=== PATIENT | male | born 1970 | race Caucasian/White ===

== ENCOUNTER 2017-11-02 10:15 | Inpatient (IN) | payer MEDICARE, SELFPAY ==
[2017-11-02 10:33] VITALS: BMI 28.8
[2017-11-02 10:53] VITALS: BP 147/94; PULSE 71; RESP 18; TEMP 36.8; O2SAT 96
[2017-11-02] MEDS: chlordiazePOXIDE 25 MG Capsule PO ×3 (11:49→22:28)
[2017-11-02 14:18] VITALS: BP 139/81; PULSE 81; RESP 16; TEMP 36.6
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
[2017-11-02 17:56] VITALS: BP 149/85; PULSE 79; RESP 16; TEMP 36.8
[2017-11-02 22:27] VITALS: BP 136/91; PULSE 68; RESP 16; TEMP 36.6
[2017-11-03 02:39] VITALS: BP 139/85; PULSE 71; RESP 16; TEMP 36.6
[2017-11-03] MEDS: chlordiazePOXIDE 25 MG Capsule PO ×3 (05:34→22:00)
[2017-11-03 05:36] VITALS: BP 135/83; PULSE 71; RESP 16; TEMP 37
[2017-11-03 09:30] VITALS: BP 138/79; PULSE 76; RESP 16; TEMP 36.4
[2017-11-03] MEDS: Sertraline 50 MG Tablet PO (09:37)
[2017-11-03] MEDS: Thiamine Hydrochloride 100 MG Tablet PO (09:37)
[2017-11-03] MEDS: Folic Acid 1 MG Tablet PO (09:37)
[2017-11-03] MEDS: Multivitamins,Therapeutic Tablet 1 TABLET PO (09:37)
[2017-11-03 13:40] VITALS: BP 137/78; PULSE 77; RESP 16; TEMP 36.6
--- NOTE | 2017-11-03 17:25 | PCM.PROGNOTE ---
Patient Problems: Active and Suspected Problems Alcohol withdrawal (Acute) Subjective: Patient seen and examined today, he is not having any wheezing, he states he feels better today less nervous. - Physical Exam General: Alert, Oriented x3, Cooperative, No apparent distress, Well developed, Well nourished HEENT: Atraumatic, PERRLA, EOMI, Normocephalic Oral: Moist Mucosa Neck: Supple, No JVD, Negative Carotid Bruits, No Nuchal Rigidity, Trachea Midline, Thyroid Normal Size and Texture Lungs: Clear to auscultation, Normal air movement, No rhonchi, No wheeze, No rales Cardiovascular: Regular rate, Regular Rhythm, Normal S1, Normal S2, No murmurs, No Ectopic Activity Abdomen: Bowel Sounds Present, Soft, Non Tender, No hernias noted Extremities: No clubbing, No cyanosis, No edema, Capillary Refill Less than 3 Seconds Skin: No rashes, No breakdown Musculoskeletal: No Tenderness to Palpation of Joints or Extremities Neurological: Cranial nerves II-XII grossly intact, Neuro grossly intact, Sensory exam intact to light touch and pain, Coordination normal Psych/Mental Status: Normal Affect, Appropriate, Alert and oriented to time, place, person, mood and affect Vital Signs Temp Pulse Resp BP Pulse Ox 97.9 F 77 16 137/78 H 96 11/03/17 13:40 11/03/17 13:40 11/03/17 13:40 11/03/17 13:40 11/02/17 10:53 Oxygen Delivery Method Room Air Weight: 91.2 kg Body Mass Index (BMI) 28.8 Intake and Output for Last 24 Hours 11/01/17 11/02/17 11/03/17 23:59 23:59 23:59 Intake Total 800 / 800 400 / 400 Balance 800 / 800 400 / 400 Medical Necessity - Tobacco Use Smoking Status: Current every day smoker Tobacco Use: Cigarettes Assessment/Plan All Active Problems Alcohol withdrawal (Acute) #1 acute alcohol withdrawal-continue present meds #2 alcoholism-chronic #3 hypertension-continue Diovan for blood pressure #4 depression-patient is on Zoloft 50 mg daily. #5 COPD-patient takes no medication for COPD but has been diagnosed with COPD according to him, I do not believe he needs aerosol treatments at this time Code Visit Inpatient E&M: [id number] Subs Hosp L2
[2017-11-03 20:20] VITALS: BP 126/90; PULSE 72; RESP 18; TEMP 36.7; O2SAT 94
[2017-11-04] MEDS: chlordiazePOXIDE 25 MG Capsule PO ×2 (05:34→13:51)
[2017-11-04 05:35] VITALS: BP 119/79; PULSE 55; RESP 16; TEMP 36.6; O2SAT 92
--- NOTE | 2017-11-04 08:45 | PCM.PROGNOTE ---
Patient Problems: Active and Suspected Problems Alcohol withdrawal (Acute) Subjective: Patient seen and examined today, he does not complain of any increased tremors or anxiety. His blood pressure is under adequate control at this time, patient was given Dulcolax p.o. due to constipation today - Physical Exam General: Alert, Oriented x3, Cooperative, No apparent distress, Well developed, Well nourished HEENT: Atraumatic, PERRLA, EOMI, Normocephalic Oral: Moist Mucosa Neck: Supple, No JVD, No Nuchal Rigidity, Trachea Midline, Thyroid Normal Size and Texture Lungs: Clear to auscultation, Normal air movement, No rhonchi, No wheeze Cardiovascular: Regular rate, Regular Rhythm, Normal S1, Normal S2, No murmurs, No Ectopic Activity, PMI Normal, No rub noted, No Gallop Abdomen: Bowel Sounds Present, Soft, Non Tender, Non-Distended, No hernias noted Extremities: No clubbing, No cyanosis, No edema, Capillary Refill Less than 3 Seconds Skin: No rashes, No breakdown Musculoskeletal: No Tenderness to Palpation of Joints or Extremities Neurological: Cranial nerves II-XII grossly intact, Muscle tone normal, Sensory exam intact to light touch and pain, Coordination normal Psych/Mental Status: Normal Affect, Appropriate, Alert and oriented to time, place, person, mood and affect Vital Signs Temp Pulse Resp BP Pulse Ox 97.8 F 55 L 16 119/79 92 11/04/17 05:35 11/04/17 05:35 11/04/17 05:35 11/04/17 05:35 11/04/17 05:35 Oxygen Delivery Method Room Air Weight: 91.2 kg Body Mass Index (BMI) 28.8 Intake and Output for Last 24 Hours 11/02/17 11/03/17 11/04/17 23:59 23:59 23:59 Intake Total 800 / 800 1290 / 1290 300 / 300 Balance 800 / 800 1290 / 1290 300 / 300 Medical Necessity - Tobacco Use Smoking Status: Current every day smoker Tobacco Use: Cigarettes Assessment/Plan All Active Problems Alcohol withdrawal (Acute) #1 acute alcohol withdrawal-continue present meds, patient is currently exhibiting no symptoms of alcohol withdrawal #2 alcoholism-chronic #3 hypertension-continue Diovan for blood pressure #4 depression-patient is on Zoloft 50 mg daily. #5 COPD-patient takes no medication for COPD but has been diagnosed with COPD according to him, I do not believe he needs aerosol treatments at this time, patient no longer has wheezing which was present on admission. Code Visit Inpatient E&M: 60395 Subs Hosp L2
[2017-11-04 09:30] VITALS: BP 127/76; PULSE 81; RESP 14; TEMP 36.8
[2017-11-04] MEDS: Thiamine Hydrochloride 100 MG Tablet PO (09:30)
[2017-11-04] MEDS: Multivitamins,Therapeutic Tablet 1 TABLET PO (09:30)
[2017-11-04] MEDS: Sertraline 50 MG Tablet PO (09:30)
[2017-11-04] MEDS: Folic Acid 1 MG Tablet PO (09:30)
[2017-11-04 13:50] VITALS: BP 116/73; PULSE 84; RESP 16; TEMP 36.8
[2017-11-04 20:39] VITALS: BP 136/82; PULSE 79; RESP 16; TEMP 37; O2SAT 93
[2017-11-05] MEDS: chlordiazePOXIDE 25 MG Capsule PO (00:55)
[2017-11-05 05:34] VITALS: BP 156/88; PULSE 73; RESP 16; TEMP 36.6; O2SAT 94
[2017-11-05 07:55] VITALS: BP 140/96; PULSE 88; RESP 18; TEMP 36.5; O2SAT 98
[2017-11-05] MEDS: Folic Acid 1 MG Tablet PO (07:56)
[2017-11-05] MEDS: Multivitamins,Therapeutic Tablet 1 TABLET PO (07:56)
[2017-11-05] MEDS: Thiamine Hydrochloride 100 MG Tablet PO (07:57)
[2017-11-05] MEDS: Sertraline 50 MG Tablet PO (07:57)
[2017-11-05 08:05] VITALS: BP 140/96; PULSE 88; RESP 18; TEMP 36.5
--- NOTE | 2017-11-05 08:18 | PCM.DC ---
- Discharge Diagnoses Current Active Problems: Current Active and Chronic Problems Alcohol withdrawal (Acute) You will use the following diet at home:: No restrictions Allergies/Adverse Reactions: Allergies No Known Allergies Allergy (Verified 11/02/17 10:35) Medications to take at Discharge Fluoxetine HCl 1 capsule PO DAILY 11/02/17 Irbesartan 150 mg PO DAILY 11/02/17 Loperamide [Imodium] 2 mg PO Q6H PRN PRN 11/02/17 Primary Care Physician: Johanne Eden MD [Primary Care Provider] - Please follow up with your Primary Care Physician in: in 1-2 weeks Test Results: Test results from this visit will be discussed in further detail at your follow-up appointment, if applicable. Proposed Discharge Date: 11/05/17
--- NOTE | 2017-11-05 09:45 | PCM.DC.SUM ---
Discharge Date and Diagnosis Date of Admission: 11/02/17 Date of Discharge: 11/05/17 - Primary Discharge Diagnosis Acute alcohol withdrawal - Secondary Discharge Diagnosis Hypertension COPD Hospital Course and Treatment Summary of Care Provided: The patient is a 47 year old M history of alcohol dependence who presented with acute alcohol withdrawal 1. Acute alcohol withdrawal patient was placed on a regular nursing floor for medical stabilization using labrum. 2. Chronic alcohol dependence counseled on cessation 3. Tobacco dependence counseled on cessation, offered nicotine patch for tobacco cravings 4. Hypertension-blood pressure controlled, home medications continued with dose adjustment as needed 5. Depression patient is on SSRI did continue 6. Morbid obesity with BMI of 59 lifestyle modification including weight loss advised 7. COPD currently stable Home Medications: Medications to take at Discharge Fluoxetine HCl 1 capsule PO DAILY 11/02/17 Irbesartan 150 mg PO DAILY 11/02/17 Loperamide [Imodium] 2 mg PO Q6H PRN PRN 11/02/17 Primary Care Physician: Johanne Eden MD [Primary Care Provider] - Please follow up with your Primary Care Physician in: in 1-2 weeks Disposition: Home Minutes spent on discharge:: 35 Patient Condition:: Stable Medical Necessity - Tobacco Use Smoking Status: Current every day smoker Tobacco Use: Cigarettes Meaningful Use Info Meaningful Use Diagnoses (Choose all that apply): None applicable Code Visit Inpatient E&M: 78714 Disch Hosp
== END 2017-11-05 08:55 | disposition home or self-care (01) | DRG 897 ==
LOC: MS2 14:47 → MS3 11-03 13:59
PROVIDERS: Admitting Provider Internal Medicine; Family Provider Internal Medicine; PCP Internal Medicine; Visit Provider Internal Medicine
DX: F10.239 Alcohol dependence with withdrawal, unspecified (principal); Z68.43 Body mass index [BMI] 50.0-59.9, adult; I10 Essential (primary) hypertension; J44.9 Chronic obstructive pulmonary disease, unspecified; F32.9 Major depressive disorder, single episode, unspecified; E66.01 Morbid (severe) obesity due to excess calories; Z71.3 Dietary counseling and surveillance; F17.210 Nicotine dependence, cigarettes, uncomplicated
CPT/HCPCS: 97802; 99406

== ENCOUNTER 2018-05-31 13:55 | Inpatient (IN) | payer MEDICARE, SELFPAY ==
[2018-05-31 14:04] VITALS: BMI 26.2
[2018-05-31 14:06] VITALS: BMI 26.2
[2018-05-31 14:28] VITALS: BP 147/92; PULSE 73; RESP 16; TEMP 36.8; O2SAT 99
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
[2018-05-31 15:07] LABS: Absolute Lymphocyte Count 2.15 X10^3/ul (0.83-4.51); Absolute Neutrophil Count 3.6 X10^3/uL (2.0-7.7); Basophil# 0.02 X10^3/uL; Basophil% 0.3 % (0-1); Eosinophil# 0.14 X10^3/uL; Eosinophils% 2.2 % (0-5); Hematocrit 44.5 % (40-54); Hemoglobin 14.9 g/dl (13.0-16.5); Lymphocyte # 2.15 X10^3/ul (4.0); Lymphocyte % 33.1 % (19-41); Mean Corp Hgb Conc 33.5 g/gl (32-36); Mean Corpuscular Hgb 34.1 pg (27.0-32.0); Mean Corpuscular Volume 101.8 fL (80-94); Monocyte# 0.54 X10^3/uL; Monocyte% 8.3 % (0-10); Neutrophil # 3.62 X10^3/uL (2.7-7.7); Neutrophil % 55.6 % (47-70); Platelet Count 236 K/mm3 (150-450); RBC Distribution Width CV 12.4 % (11.6-14.6); RBC Distribution Width SD 45.6 fl (35.1-43.9); Red Blood Count 4.37 M/mm3 (4.6-6.2); White Blood Count 6.5 K/mm3 (4.4-11.0)
[2018-05-31 15:10] LABS: POSITIVE COUNT NO; POSITIVE DIFFERENTIAL NO; POSITIVE MORPHOLOGY NO
[2018-05-31] MEDS: Ondansetron ODT 4 MG Tablet PO (15:13)
[2018-05-31] MEDS: Dicyclomine 10 MG Capsule 20 MG PO (15:13)
[2018-05-31] MEDS: Pantoprazole Sodium 40 MG Tablet PO (15:13)
[2018-05-31] MEDS: hydrOXYzine PAM 25 MG Capsule 50 MG PO (15:13)
[2018-05-31] MEDS: LORazepam 1 MG Tablet PO ×3 (15:13→22:31)
[2018-05-31] MEDS: Methocarbamol 750 MG Tablet PO (15:13)
[2018-05-31 15:20] LABS: ALB/GLOB Ratio 1.1 RATIO (0.9-2.4); AST(SGOT) 46 U/L (15-37); Alanine Aminotransfer ALT/SGPT 47 U/L (16-61); Albumin, Serum 3.5 g/dL (3.2-5.0); Alkaline Phosphatase 63 U/L (45-117); Anion Gap 8 (5-15); BUN 13 mg/dL (7-18); BUN/Creat Ratio 11.8 RATIO (10-20); Calcium,Total 8.7 mg/dL (8.5-10.1); Chloride 102 mmol/L (98-107); EST Glomerular Filtration Rate 75 mL/min (>60); Est Glom Filt Rate - Afr Amer 91 mL/min (>60); Estimated Creatinine Clearance 83.88 ml/min; Globulin 3.3 g/dL (2.2-4.2); Glucose 111 mg/dL (74-106); Potassium 4.4 mmol/L (3.5-5.1); Protein, Total 6.8 g/dL (6.4-8.2); Sodium Level 137 mmol/L (136-145)
--- NOTE | 2018-05-31 17:15 | CHAPLAIN ---
Type of Pastoral Visit _x__ Initial Visit ___ Follow-up Visit ___ On-call Visit ___ General Patient Visit ___ Spiritual Assessment ___ Family Conference ___ Bereavement ___ Rapid Response ___ Code Blue ___ Other (describe below) Pastoral Care Referral From _x__ Patient ___ Family ___ Nurse ___ Physician ___ Geothermal System Installer ___ Enrollment Advisor ___ Other (describe below) Sacrament/Intervention _x__ Active listening ___ Anointing ___ Muslim ___ Bereavement ___ Communion _x__ Amanda exploration ___ _x__ Life review _x__ Prayer ___ Reconciliation ___ Sacrament of Sick _x__ Supportive presence ___ Wedding ___ Other (describe below) Pastoral Comments
[2018-05-31 17:52] LABS: Amphetamine Urine VISTA NEGATIVE (<1000 ng/mL); Barbiturate Urine VISTA NEGATIVE (< 200 ng/mL); Benzodiazepine Urine VISTA NEGATIVE (< 200 ng/mL); Cocaine Urine VISTA NEGATIVE (< 300 ng/mL); Ecstacy Urine VISTA NEGATIVE (< 500 ng/mL); Methadone Urine VISTA NEGATIVE (< 300 ng/mL); PCP Urine VISTA NEGATIVE (< 25 ng/mL); THC Urine VISTA POSITIVE (< 50 ng/mL); Vista UDS pH Range 7
[2018-05-31 18:15] VITALS: BP 129/77; PULSE 79; RESP 18; TEMP 36.8
[2018-05-31 22:00] VITALS: BP 138/86; PULSE 74; RESP 18; TEMP 36.9
[2018-05-31] MEDS: traZODone 50 MG Tablet PO (22:31)
[2018-06-01 02:00] VITALS: BP 123/75; PULSE 63; RESP 16; TEMP 36.9
[2018-06-01] MEDS: Methocarbamol 750 MG Tablet PO ×3 (02:28→16:06)
[2018-06-01] MEDS: hydrOXYzine PAM 25 MG Capsule 50 MG PO ×3 (02:28→15:12)
[2018-06-01] MEDS: LORazepam 1 MG Tablet PO ×4 (02:28→16:06)
[2018-06-01 06:00] VITALS: BP 121/82; PULSE 73; RESP 16; TEMP 36.6
[2018-06-01 08:11] VITALS: BP 124/80; PULSE 83; RESP 14; TEMP 36.6
[2018-06-01] MEDS: Multivitamins,Therapeutic Tablet 1 TABLET PO (08:31)
[2018-06-01] MEDS: Losartan Potassium 50 MG Tablet PO (08:31)
[2018-06-01] MEDS: Folic Acid 1 MG Tablet PO (08:31)
[2018-06-01] MEDS: Pantoprazole Sodium 40 MG Tablet PO (08:32)
[2018-06-01] MEDS: Thiamine Hydrochloride 100 MG Tablet PO (08:32)
[2018-06-01] MEDS: FLUoxetine 20 MG Capsule 40 MG PO (08:33)
--- NOTE | 2018-06-01 10:29 | PCM.PN.HOSP ---
Subjective: Patient seen and examined. He has no complaints and feels well. He is been managed for alcohol withdrawal. He denies any palpitations or dizziness but does admit to tremors. He denies any chest pain, abdominal pain, diarrhea vomiting. Review of systems otherwise negative. Labs and vitals reviewed. Vitals/I&O's: Vital Signs Temp Pulse Resp BP Pulse Ox 97.9 F 83 14 124/80 H 99 06/01/18 08:11 06/01/18 08:11 06/01/18 08:11 06/01/18 08:11 05/31/18 14:28 Oxygen Delivery Method Room Air Weight: 185 lb Body Mass Index (BMI) 26.2 General: Alert, Oriented x3, Cooperative, No apparent distress HEENT: Atraumatic, PERRLA, EOMI, Normocephalic Oral: Moist Mucosa Neck: Supple, No JVD, Negative Carotid Bruits Lungs: Clear to auscultation, Normal air movement, No rhonchi, No wheeze, No rales Cardiovascular: Regular rate, Regular Rhythm, Normal S1, Normal S2, No murmurs Abdomen: Bowel Sounds Present, Soft, Non Tender, Non-Distended, No Hepato-splenomegaly Extremities: No clubbing, No cyanosis, No edema, Capillary Refill Less than 3 Seconds Skin: No rashes, No breakdown Musculoskeletal: No Tenderness to Palpation of Joints or Extremities Lymphatic: No Cervical, Supraclavicular, or Inguinal Adenopathy Neurological: Cranial nerves II-XII grossly intact, Neuro grossly intact, Motor Exam 5/5 strength throughout Psych/Mental Status: Normal Affect, Appropriate, Alert and oriented to time, place, person, mood and affect Laboratory Results 05/31/18 14:52: WBC 6.5, RBC 4.37 L, Hgb 14.9, Hct 44.5, MCV 101.8 H, MCH 34.1 H, MCHC 33.5, RDW 12.4, RDW Differential 45.6 H, Plt Count 236, MPV 10.0, Immature Gran % (Auto) 0.500, Neut % (Auto) 55.6, Lymph % (Auto) 33.1, [place] % (Auto) 8.3, Eos % (Auto) 2.2, Baso % (Auto) 0.3, Absolute Neuts (auto) 3.6, Absolute Lymphs (auto) 2.15, Total Counted Not Reportable 05/31/18 14:52: Sodium 137, Potassium 4.4, Chloride 102, Carbon Dioxide 27.0, Anion Gap 8, BUN 13, Creatinine 1.10, Estim Creat Clear Calc 83.88, Est GFR (MDRD) Af Amer 91, Est GFR (MDRD) Non-Af 75, BUN/Creatinine Ratio 11.8, Glucose 111 H, Calcium 8.7, Total Bilirubin 0.50, AST 46 H, ALT 47, Alkaline Phosphatase 63, Total Protein 6.8, Albumin 3.5, Globulin 3.3, Albumin/Globulin Ratio 1.1 05/31/18 17:30: Urine Opiates Screen NEGATIVE, Urine Methadone Screen NEGATIVE, Ur Barbiturates Screen NEGATIVE, Ur Phencyclidine Scrn NEGATIVE, Ur Amphetamines Screen NEGATIVE, U Methamphetamin-MDMA NEGATIVE, U Benzodiazepines Scrn NEGATIVE, Urine Cocaine Screen NEGATIVE, U Cannabinoids Screen POSITIVE H, Ur Drug Screen Comment Current Medications Dicyclomine HCl (Bentyl) 20 mg PO Q6H PRN PRN PRN Reason: abdominal discomfort Last Admin: 05/31/18 15:13 Dose: 20 mg Fluoxetine HCl (Prozac) 40 mg PO DAILY [facility] Last Admin: 06/01/18 08:33 Dose: 40 [facility] Last Admin: 06/01/18 08:31 Dose: 1 mg Hydroxyzine Pamoate (Vistaril Pamoate Capsule) 50 mg PO Q6H PRN PRN PRN Reason: Mild Anxiety (score 1/3) Last Admin: 06/01/18 08:31 Dose: 50 mg Sodium Chloride () 250 mls @ 15 mls/hr IV .[id number] PRN PRN Reason: SALINE FLUSH Ibuprofen (Motrin) 600 mg PO Q8H PRN PRN PRN Reason: Mild-Moderate Pain (1-5/10) Loperamide HCl (Imodium) 2 mg PO Q6H PRN PRN PRN Reason: Diarrhea Lorazepam (Ativan) 1 mg IV Q4H PRN PRN PRN Reason: Severe Anxiety Lorazepam (Ativan) 2 mg IV X1 PRN PRN Reason: Seizure Lorazepam (Ativan) 1 mg PO Q4H [facility]; Taper Stop: 06/03/18 18:59 Last Admin: 06/01/18 06:21 Dose: 1 mg Losartan Potassium (Cozaar) 50 mg PO DAILY [facility] Last Admin: 06/01/18 08:31 Dose: 50 mg Methocarbamol (Methocarbamol) 750 mg PO Q6H PRN PRN PRN Reason: Muscle Aches Last Admin: 06/01/18 08:31 Dose: 750 mg [facility]it[facility] ([facility]amin) [facility] Last Admin: 06/01/18 08:31 Dose: 1 tablet Nicotine (Nicoderm Cq (Pbkc)) 21 mg TRANSDERM. DAILY [facility] Last Admin: 05/31/18 16:12 Dose: 21 mg Ondansetron HCl (Zofran Odt) 4 mg PO Q6H PRN PRN PRN Reason: NAUSEA Last Admin: 05/31/18 15:13 Dose: 4 mg Pantoprazole Sodium (Protonix) 40 mg PO DAILY [facility] Last Admin: 06/01/18 08:32 Dose: 40 mg Sodium Chloride () 5 - 15 ml IV UD PRN PRN Reason: SALINE FLUSH Thi[facility] ([facility]amin [facility]) [facility] Last Admin: 06/01/18 08:32 Dose: 100 mg Trazodone HCl (Desyrel) 50 mg PO QHS [facility] Last Admin: 05/31/18 22:31 Dose: 50 mg Medical Necessity - Tobacco Use Smoking Status: Current every day smoker Tobacco Use: Cigarettes Assessment/Plan All Active Problems Alcohol withdrawal (Acute) 1. Acute alcohol withdrawal on alcohol withdrawal protocol with ativan CIWA score today-10 2. Nicotine abuse: on nicotine patch 3. Hypertension: Controlled. On losartan 50 mg daily. 4. COPD: Stable. Breathing treatments as needed. 5. Depression: Of Loxitane. DVT prophylaxis: Encourage ambulation. Code Visit Inpatient E&M: 93248 Subs Hosp L2
--- NOTE | 2018-06-01 10:34 | PN_ITS ---
Subjective: Patient seen and examined. He has no complaints and feels well. He is been managed for alcohol withdrawal. He denies any palpitations or dizziness but does admit to tremors. He denies any chest pain, abdominal pain, diarrhea vomiting. Review of systems otherwise negative. Labs and vitals reviewed. Vitals/I&O's: Vital Signs Temp Pulse Resp BP Pulse Ox 97.9 F 83 14 124/80 H 99 06/01/18 08:11 06/01/18 08:11 06/01/18 08:11 06/01/18 08:11 05/31/18 14:28 Oxygen Delivery Method Room Air Weight: 185 lb Body Mass Index (BMI) 26.2 General: Alert, Oriented x3, Cooperative, No apparent distress HEENT: Atraumatic, PERRLA, EOMI, Normocephalic Oral: Moist Mucosa Neck: Supple, No JVD, Negative Carotid Bruits Lungs: Clear to auscultation, Normal air movement, No rhonchi, No wheeze, No rales Cardiovascular: Regular rate, Regular Rhythm, Normal S1, Normal S2, No murmurs Abdomen: Bowel Sounds Present, Soft, Non Tender, Non-Distended, No Hepato- splenomegaly Extremities: No clubbing, No cyanosis, No edema, Capillary Refill Less than 3 Seconds Skin: No rashes, No breakdown Musculoskeletal: No Tenderness to Palpation of Joints or Extremities Lymphatic: No Cervical, Supraclavicular, or Inguinal Adenopathy Neurological: Cranial nerves II-XII grossly intact, Neuro grossly intact, Motor Exam 5/5 strength throughout Psych/Mental Status: Normal Affect, Appropriate, Alert and oriented to time, place, person, mood and affect Laboratory Results 05/31/18 14:52: WBC 6.5, RBC 4.37 L, Hgb 14.9, Hct 44.5, MCV 101.8 H, MCH 34.1 H , MCHC 33.5, RDW 12.4, RDW Differential 45.6 H, Plt Count 236, MPV 10.0, Immature Gran % (Auto) 0.500, Neut % (Auto) 55.6, Lymph % (Auto) 33.1, [place] % (Auto) 8.3, Eos % (Auto) 2.2, Baso % (Auto) 0.3, Absolute Neuts (auto) 3.6, Absolute Lymphs (auto) 2.15, Total Counted Not Reportable 05/31/18 14:52: Sodium 137, Potassium 4.4, Chloride 102, Carbon Dioxide 27.0, Anion Gap 8, BUN 13, Creatinine 1.10, Estim Creat Clear Calc 83.88, Est GFR (MDRD) Af Amer 91, Est GFR (MDRD) Non-Af 75, BUN/Creatinine Ratio 11.8, Glucose 111 H, Calcium 8.7, Total Bilirubin 0.50, AST 46 H, ALT 47, Alkaline Phosphatase 63, Total Protein 6.8, Albumin 3.5, Globulin 3.3, Albumin/Globulin Ratio 1.1 05/31/18 17:30: Urine Opiates Screen NEGATIVE, Urine Methadone Screen NEGATIVE, Ur Barbiturates Screen NEGATIVE, Ur Phencyclidine Scrn NEGATIVE, Ur Amphetamines Screen NEGATIVE, U Methamphetamin-MDMA NEGATIVE, U Benzodiazepines Scrn NEGATIVE, Urine Cocaine Screen NEGATIVE, U Cannabinoids Screen POSITIVE H, Ur Drug Screen Comment Current Medications Dicyclomine HCl (Bentyl) 20 mg PO Q6H PRN PRN PRN Reason: abdominal discomfort Last Admin: 05/31/18 15:13 Dose: 20 mg Fluoxetine HCl (Prozac) 40 mg PO DAILY [facility] Last Admin: 06/01/18 08:33 Dose: 40 mg [facility] Last Admin: 06/01/18 08:31 Dose: 1 mg Hydroxyzine Pamoate (Vistaril Pamoate Capsule) 50 mg PO Q6H PRN PRN PRN Reason: Mild Anxiety (score 1/3) Last Admin: 06/01/18 08:31 Dose: 50 mg Sodium Chloride () 250 mls @ 15 mls/hr IV .[id number] PRN PRN Reason: SALINE FLUSH Ibuprofen (Motrin) 600 mg PO Q8H PRN PRN PRN Reason: Mild-Moderate Pain (1-5/10) Loperamide HCl (Imodium) 2 mg PO Q6H PRN PRN PRN Reason: Diarrhea Lorazepam (Ativan) 1 mg IV Q4H PRN PRN PRN Reason: Severe Anxiety Lorazepam (Ativan) 2 mg IV X1 PRN PRN Reason: Seizure Lorazepam (Ativan) 1 mg PO Q4H [facility]; Taper Stop: 06/03/18 18:59 Last Admin: 06/01/18 06:21 Dose: 1 mg Losartan Potassium (Cozaar) 50 mg PO DAILY [facility] Last Admin: 06/01/18 08:31 Dose: 50 mg Methocarbamol (Methocarbamol) 750 mg PO Q6H PRN PRN PRN Reason: Muscle Aches Last Admin: 06/01/18 08:31 Dose: 750 mg Multivitamins ([facility]amin) [facility] Last Admin: 06/01/18 08:31 Dose: 1 tablet Nicotine (Nicoderm Cq (Pbkc)) 21 mg TRANSDERM. DAILY [facility] Last Admin: 05/31/18 16:12 Dose: 21 mg Ondansetron HCl (Zofran Odt) 4 mg PO Q6H PRN PRN PRN Reason: NAUSEA Last Admin: 05/31/18 15:13 Dose: 4 mg Pantoprazole Sodium (Protonix) 40 mg PO DAILY [facility] Last Admin: 06/01/18 08:32 Dose: 40 mg Sodium Chloride () 5 - 15 ml IV UD PRN PRN Reason: SALINE FLUSH Thiamine HCl (Vitamin B1) [facility] Last Admin: 06/01/18 08:32 Dose: 100 mg Trazodone HCl (Desyrel) 50 mg PO QHS [facility] Last Admin: 05/31/18 22:31 Dose: 50 mg Medical Necessity - Tobacco Use Smoking Status: Current every day smoker Tobacco Use: Cigarettes Assessment/Plan All Active Problems Alcohol withdrawal (Acute) 1. Acute alcohol withdrawal * on alcohol withdrawal protocol with ativan * CIWA score today-10 * 2. Nicotine abuse: on nicotine patch 3. Hypertension: Controlled. On losartan 50 mg daily. 4. COPD: Stable. Breathing treatments as needed. 5. Depression: Of Loxitane. DVT prophylaxis: Encourage ambulation. Code Visit Inpatient E&M: 81587 Subs Hosp L2
[2018-06-01 16:00] VITALS: BP 95/74; PULSE 92; RESP 16; TEMP 36.4
[2018-06-01] MEDS: Ibuprofen 600 MG Tablet PO (16:06)
--- NOTE | 2018-06-01 21:13 | NURSING ---
1900 Pt at the desk dressed in his street clothes. Calling his brother left a message on his machine.
--- NOTE | 2018-06-01 21:15 | NURSING ---
0 Patient back at the desk talking about his neighbor not answering her phone. States brother or neighbor wont answer his calls pt concerned with his cat at home. At this time he is back in his hospital gown.
--- NOTE | 2018-06-01 21:17 | NURSING ---
1939 Patient back at the desk in his street clothes leaving AMA has to go. Stopped to sigh the AMA paper copy given to him. Ivonne asked if we could do anything for him to stay pt stated no wants to leave now.
--- NOTE | 2018-06-02 16:05 | DS.PCM_ITS ---
Discharge Date and Diagnosis Date of Admission: 05/31/18 Date of Discharge: 06/02/18 - Primary Discharge Diagnosis acute alcohol withdrawal - Secondary Discharge Diagnosis Chronic Problems COPD (chronic obstructive pulmonary disease) (Chronic) HTN (hypertension) (Chronic) Marijuana abuse (Chronic) Depression (Chronic) Nicotine abuse (Chronic) Hospital Course and Treatment Operations: None Procedures: None Summary of Care Provided: The patient is a 47 year old M was admitted for alcohol withdrawal on 05/31/18. He has a history of alcohol abuse, hypertension, depression and marijuana abuse as well as nicotine abuse and COPD. He had been through detox before in October 2017 and had been drinking since about 48 drank about 2 sixpacks daily. His l ast drink was the day before admission. He was admitted and managed for acute alcohol withdrawal with Ativan withdrawal protocol. Patient was stable and was doing well on the Ativan withdrawal protocol. However patient signed out AMA on 06/01/18 in the evening after 8 PM. Patient was seen on the day he signed out AMA. At time of review he had no complaints and felt well. He was tolerating the withdrawal well. Review of systems and was otherwise negative. Labs and vitals reviewed. [] Vital Signs Temp Pulse Resp BP Pulse Ox 97.9 F 83 14 124/80 H 99 06/01/18 08:11 06/01/18 08:11 06/01/18 08:11 06/01/18 08:11 05/31/18 14:28 Oxygen Delivery Method Room Air Weight: 185 lb Body Mass Index (BMI) 26.2 General: Alert, Oriented x3, Cooperative, No apparent distress HEENT: Atraumatic, PERRLA, EOMI, Normocephalic Oral: Moist Mucosa Neck: Supple, No JVD, Negative Carotid Bruits Lungs: Clear to auscultation, Normal air movement, No rhonchi, No wheeze, No rales Cardiovascular: Regular rate, Regular Rhythm, Normal S1, Normal S2, No murmurs Abdomen: Bowel Sounds Present, Soft, Non Tender, Non-Distended, No Hepato- splenomegaly Extremities: No clubbing, No cyanosis, No edema, Capillary Refill Less than 3 Seconds Skin: No rashes, No breakdown Musculoskeletal: No Tenderness to Palpation of Joints or Extremities Lymphatic: No Cervical, Supraclavicular, or Inguinal Adenopathy Neurological: Cranial nerves II-XII grossly intact, Neuro grossly intact, Motor Exam 5/5 strength throughout Psych/Mental Status: Normal Affect, Appropriate, Alert and oriented to time, place, person, mood and affect Patient signed out AMA in the evening of 06/01/2018. - Physical Exam Vital Signs Temp Pulse Resp BP Pulse Ox 97.5 F L 92 16 95/74 99 06/01/18 16:00 06/01/18 16:00 06/01/18 16:00 06/01/18 16:00 05/31/18 14:28 Oxygen Delivery Method Room Air Weight: 185 lb Body Mass Index (BMI) 26.2 Home Medications: Medications to take at Discharge Fluoxetine HCl 1 capsule PO DAILY 11/02/17 Irbesartan 150 mg PO DAILY 11/02/17 Loperamide [Imodium] 2 mg PO Q6H PRN PRN 11/02/17 Primary Care Physician: Johanne Eden MD [Primary Care Provider] - Disposition: Against Medical Advice Minutes spent on discharge:: 35 Patient Condition:: Stable Medical Necessity - Tobacco Use Smoking Status: Current every day smoker Tobacco Use: Cigarettes Meaningful Use Info Meaningful Use Diagnoses (Choose all that apply): None applicable Code Visit Inpatient E&M: 26628 Disch Hosp
== END 2018-06-01 19:40 | disposition left against medical advice (07) | DRG 894 ==
PROVIDERS: Family Provider Internal Medicine; PCP Internal Medicine; Visit Provider Student in an Organized Health Care Education/Training Program
DX: F10.239 Alcohol dependence with withdrawal, unspecified (principal); I10 Essential (primary) hypertension; J44.9 Chronic obstructive pulmonary disease, unspecified; F32.9 Major depressive disorder, single episode, unspecified; F12.10 Cannabis abuse, uncomplicated; Z72.0 Tobacco use
CPT/HCPCS: 36415; 80053; 80307; 85025

== ENCOUNTER 2018-12-05 11:44 | Inpatient (IN) | payer MEDICARE, SELFPAY ==
[2018-12-05 11:45] VITALS: BP 147/84; PULSE 107; RESP 18; TEMP 36.9; O2SAT 96; BMI 27.2
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
[2018-12-05 12:53] LABS: Absolute Lymphocyte Count 1.63 X10^3/uL (0.83-4.51); Absolute Neutrophil Count 3.5 X10^3/uL (2.0-7.7); Basophil# 0.03 X10^3/uL; Basophil% 0.5 % (0-1); Eosinophil# 0.16 X10^3/uL; Eosinophils% 2.7 % (0-5); Hematocrit 41.4 % (40-54); Hemoglobin 13.9 g/dL (13.0-16.5); Lymphocyte # 1.63 X10^3/ul (4.0); Lymphocyte % 27.1 % (19-41); Mean Corp Hgb Conc 33.6 g/dL (32-36); Mean Corpuscular Hgb 34.2 pg (27.0-32.0); Mean Corpuscular Volume 101.7 fL (80-94); Mean Platelet Vol. 10.4 fl (6.2-12.0); Monocyte# 0.62 X10^3/uL; Monocyte% 10.3 % (0-10); NRBC Flagged by Analyzer 0 % (0-5); Neutrophil # 3.51 X10^3/uL (2.7-7.7); Neutrophil % 58.2 % (47-70); Platelet Count 210 K/mm3 (150-450); RBC Distribution Width CV 12.6 % (11.6-14.6); RBC Distribution Width SD 46.5 fl (35.1-43.9); Red Blood Count 4.07 M/mm3 (4.6-6.2)
[2018-12-05 12:57] LABS: ALB/GLOB Ratio 0.9 RATIO (0.9-2.4); AST(SGOT) 121 U/L (15-37); Alanine Aminotransfer ALT/SGPT 90 U/L (16-61); Albumin, Serum 3.2 g/dL (3.2-5.0); Alkaline Phosphatase 77 U/L (45-117); Anion Gap 2 (5-15); BUN 17 mg/dL (7-18); BUN/Creat Ratio 15.5 RATIO (10-20); Calcium,Total 8.9 mg/dL (8.5-10.1); Chloride 106 mmol/L (98-107); EST Glomerular Filtration Rate 75 mL/min (>60); Est Glom Filt Rate - Afr Amer 91 mL/min (>60); Estimated Creatinine Clearance 82.95 ml/min; Globulin 3.4 g/dL (2.2-4.2); Glucose 96 mg/dL (74-106); Protein, Total 6.6 g/dL (6.4-8.2); Sodium Level 137 mmol/L (136-145)
[2018-12-05 13:32] VITALS: BP 136/95; PULSE 82; RESP 16; O2SAT 97
[2018-12-05 13:51] LABS: Amphetamine Urine VISTA NEGATIVE (<1000 ng/mL); Barbiturate Urine VISTA NEGATIVE (< 200 ng/mL); Benzodiazepine Urine VISTA NEGATIVE (< 200 ng/mL); Cocaine Urine VISTA NEGATIVE (< 300 ng/mL); Ecstacy Urine VISTA NEGATIVE (< 500 ng/mL); Methadone Urine VISTA NEGATIVE (< 300 ng/mL); PCP Urine VISTA NEGATIVE (< 25 ng/mL); THC Urine VISTA NEGATIVE (< 50 ng/mL); Vista UDS pH Range 7
[2018-12-05 14:30] VITALS: BMI 27.3
[2018-12-05 14:56] VITALS: BMI 27.2
[2018-12-05 16:20] VITALS: BP 141/96; PULSE 76; RESP 18; TEMP 36.6; O2SAT 99
[2018-12-05 16:26] VITALS: BP 141/96; PULSE 76; RESP 18; TEMP 36.6
--- NOTE | 2018-12-05 17:28 | HP.PCM_ITS ---
Problem List (1) Alcohol withdrawal Status: Acute Qualifiers: Complication of substance-induced condition: uncomplicated History of Present Illness Date of Admission: 12/05/18 Chief Complaint: Acute alcohol withdrawal The patient is a 48 year old M seen in the emergency room at [facility] requesting services for acute alcohol withdrawal. Last time the patient had anything to drink was last night before midnight. Patient is vague about how much he drinks-he states he cannot drink more than 6 beers in one setting because he blacks out, he states recently he is gone to drinking 80 proof vodka-he could not tell me exactly how much he drinks per day but states that he only drinks up to a half 1/5 at a time due to concerns of blacking out patient states he has been through detox for alcohol many times-he could not give me the exact number but he felt it could be as high as 10 times, and reviewed the patient's medical record here, patient checked himself out AMA in May 2018 and completed alcohol detox program here in the hospital in 2017. Patient states he never followed up with anyone as an outpatient to continue services to refrain from using alcohol. Patient complains of some shakiness, diaphoresis today, and occasional diarrhea. Blood chemistry is unremarkable except for slight elevations in AST and ALT, CBC was unremarkable, urine tox screen was negative for all drugs tested, ethyl alcohol level was 8.0. Patient was admitted for acute alcohol withdrawal, he will be placed on Librium and a tapering dose over the next 3 days, will also be given IV Ativan as needed for acute agitation. Patient will need to be seen by socially responsible investment adviser for follow-up outpatient alcohol abstinence programs. This examiner remains skeptical that the patient will follow through due to his multiple failures in the past frame from drinking. Past Medical History Past Medical History (Chronic Problems): Chronic Problems COPD (chronic obstructive pulmonary disease) (Chronic) HTN (hypertension) (Chronic) Marijuana abuse (Chronic) Depression (Chronic) Nicotine abuse (Chronic) Allergies No Known Allergies Allergy (Verified 12/05/18 11:45) Home Medications: Ambulatory Orders Medication Instructions Recorded Fluoxetine HCl 40 mg PO DAILY 12/05/18 Irbesartan 150 mg PO DAILY 12/05/18 Surgical History: tonsillectomy, - Psychiatric History: Depression Lives: Alone Smoking Status: Current some day smoker Tobacco Use: Cigarettes Alcohol: Heavy Drugs: Marijuana - *Family History Maternal History Items: - Paternal History Items: Unknown Review of Systems Constitutional: Reports: - - he complains of episodes of diaphoresis over the past 24 hours. Denies: Anorexia, Chills, Fever, Night Sweats, Malaise, Weakness, Weight Change, Fatigue Eyes: Denies: Cataracts, Conjunctivae Inflammation, Double vision, Drainage, Eyelid Inflammation HEENT: Denies: Difficulty Swallowing, Dysphasia, Ear Pain, Eye Pain, Hearing Changes, Nasal bleeding, Nasal Congestion, Post Nasal Drip Cardiovascular: Denies: Chest Pain, Claudication, Chest Pressure, Chest Tightness, Edema, Palpitations Respiratory: Denies: Cough, Hemoptysis, Pleuritic Pain, Shortness of Breath, Shortness of breath at rest, Shortness of breath upon exertion Gastrointestinal: Denies: Abdominal Pain, Constipation, Diarrhea, Hematemesis, Hematochezia, Nausea, Melena, Vomiting Genitourinary: Denies: Dysuria, Frequency, Hematuria, Hesitancy, Nocturia, Retention, Urgency Musculoskeletal: Denies: Back Pain, Foot Pain, Hand Pain, Joint Pain, Joint stiffness, Joint swelling, Joint Tenderness, Leg Pain Skin: Denies: Dryness, Jaundice, Pruritis, Rash Neurological: Denies: Blurred vision, Double vision, Change in Speech, Slurred speech, Confusion, Difficulty swallowing, Focal weakness, Headaches, Incoordination, Numbness, Tingling Psychiatric: Reports: - - Patient complains of feeling shaky over the last several hours. Denies: Anxiety, Depression, Homicidal Ideations, Suicidal Ideations Endocrine: Denies: Change in Body Habitus, Heat/ Cold Intolerance, Polydipsia, Polyuria Hematologic/ Lymphatic: Denies: Adenopathy, Anemia, Easy Bruising, Easy Bleeding, Petechiae, Purpura VTE Information - Inpt Only VTE Present on Admission: No VTE Mechan Device Prophylaxis: None - NOT NEEDED VTE Pharm Prophylaxis ordered?: No Reason prophylaxis not ordered:: Treatment Not Indicated Patient Problems: Active and Suspected Problems Alcohol dependence (Acute) - Physical Exam General: Alert, Oriented x3, Cooperative, Well developed, - - Patient appears moderately anxious during my examination HEENT: Atraumatic, PERRLA, EOMI, Normocephalic Oral: Moist Mucosa Neck: Supple, No JVD, Negative Carotid Bruits, Trachea Midline, Thyroid Normal Size and Texture Lungs: Clear to auscultation, Normal air movement, No rhonchi, No wheeze, No ra les Cardiovascular: Regular rate, Regular Rhythm, Normal S1, Normal S2, No murmurs Abdomen: Bowel Sounds Present, Soft, Non Tender Extremities: No clubbing, No cyanosis, No edema, Capillary Refill Less than 3 Seconds Skin: No rashes, No breakdown Musculoskeletal: No Tenderness to Palpation of Joints or Extremities Neurological: Cranial nerves II-XII grossly intact, Neuro grossly intact, Sensory exam intact to light touch and pain, Coordination normal Psych/Mental Status: Anxious, Flat Affect, Restless Vital Signs Temp Pulse Resp BP Pulse Ox 97.9 F 76 18 141/96 H 99 12/05/18 16:26 12/05/18 16:26 12/05/18 16:26 12/05/18 16:26 12/05/18 16:20 Oxygen Delivery Method Room Air Weight: 86.183 kg Body Mass Index (BMI) 27.2 Laboratory Tests Past 24 Hrs 12/05/18 12/05/18 12/05/18 12:30 12:30 12:30 WBC 6.0 RBC 4.07 L Hgb 13.9 Hct 41.4 MCV 101.7 H MCH 34.2 H MCHC 33.6 RDW Std Deviation 46.5 H RDW Coeff of Kingsley 12.6 Plt Count 210 MPV 10.4 Immature Gran % (Auto) 1.200 H Neut % (Auto) 58.2 Lymph % (Auto) 27.1 Upton % (Auto) 10.3 H Eos % (Auto) 2.7 Baso % (Auto) 0.5 Absolute Neuts (auto) 3.5 Absolute Lymphs (auto) 1.63 Nucleated RBC % 0 Sodium 137 Potassium 4.0 Chloride 106 Carbon Dioxide 29.0 Anion Gap 2 L BUN 17 Creatinine 1.10 Estim Creat Clear Calc 82.95 Est GFR (MDRD) Af Amer 91 Est GFR (MDRD) Non-Af 75 BUN/Creatinine Ratio 15.5 Glucose 96 Calcium 8.9 Total Bilirubin 0.40 AST 121 H ALT 90 H Alkaline Phosphatase 77 Total Protein 6.6 Albumin 3.2 Globulin 3.4 Albumin/Globulin Ratio 0.9 Urine Opiates Screen Urine Methadone Screen Ur Barbiturates Screen Ur Phencyclidine Scrn Ur Amphetamines Screen U Methamphetamin-MDMA U Benzodiazepines Scrn Urine Cocaine Screen U Cannabinoids Screen Ur Drug Screen Comment Ethyl Alcohol 8.0 12/05/18 12:30 WBC RBC Hgb Hct MCV MCH MCHC RDW Std Deviation RDW Coeff of Kingsley Plt Count MPV Immature Gran % (Auto) Neut % (Auto) Lymph % (Auto) Upton % (Auto) Eos % (Auto) Baso % (Auto) Absolute Neuts (auto) Absolute Lymphs (auto) Nucleated RBC % Sodium Potassium Chloride Carbon Dioxide Anion Gap BUN Creatinine Estim Creat Clear Calc Est GFR (MDRD) Af Amer Est GFR (MDRD) Non-Af BUN/Creatinine Ratio Glucose Calcium Total Bilirubin AST ALT Alkaline Phosphatase Total Protein Albumin Globulin Albumin/Globulin Ratio Urine Opiates Screen NEGATIVE Urine Methadone Screen NEGATIVE Ur Barbiturates Screen NEGATIVE Ur Phencyclidine Scrn NEGATIVE Ur Amphetamines Screen NEGATIVE U Methamphetamin-MDMA NEGATIVE U Benzodiazepines Scrn NEGATIVE Urine Cocaine Screen NEGATIVE U Cannabinoids Screen NEGATIVE Ur Drug Screen Comment Ethyl Alcohol Assessment/Plan All Active Problems Alcohol withdrawal (Acute) Alcohol dependence (Acute) #1 acute alcohol withdrawal-patient will be admitted to [facility] and be placed on a tapering dose of Librium that will taper over the next 3 days, socially responsible investment adviser will be active with the patient and help him with outpatient contacts for alcohol abstinence support #2 chronic alcoholism #3 chronic depression-patient is on Prozac as an outpatient, its equivalent will be continued during his hospitalization #4 hypertension-patient will be maintained on an ARB for blood pressure-patient is on Avapro for blood pressure as an outpatient #5 elevated liver enzymes-secondary to chronic alcohol usage-I do not feel the patient has alcoholic hepatitis Code Visit Inpatient E&M: 43072 Init Hosp L3
[2018-12-05] MEDS: chlordiazePOXIDE 25 MG Capsule PO ×2 (17:56→23:00)
[2018-12-05 20:50] VITALS: BP 136/84; PULSE 78; RESP 18; TEMP 37; O2SAT 97
[2018-12-06] VITALS (7 sets, daily range): BP systolic 127–141; BP diastolic 79–93; PULSE 75–79; RESP 16–18; TEMP 36.3–37.1; O2SAT 95–97
[2018-12-06] MEDS: chlordiazePOXIDE 25 MG Capsule PO ×3 (04:19→18:02)
[2018-12-06] MEDS: Folic Acid 1 MG Tablet PO (10:07)
[2018-12-06] MEDS: FLUoxetine 20 MG Capsule 40 MG PO (10:07)
[2018-12-06] MEDS: Multivitamins,Therapeutic Tablet 1 TABLET PO (10:07)
[2018-12-06] MEDS: Thiamine Hydrochloride 100 MG Tablet PO (10:07)
[2018-12-06] MEDS: Dicyclomine 10 MG Capsule 20 MG PO (10:07)
[2018-12-06] MEDS: Losartan Potassium 50 MG Tablet PO (10:07)
[2018-12-06] MEDS: 0.9% NaCl Peripheral Flush Adult/Peds IV (10:15)
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
--- NOTE | 2018-12-06 13:55 | NURSING ---
This RN observed Student JESSICA Sanders to perform/chart the 1400 CIWA/Vital signs at bedside. I agree with this charting.
--- NOTE | 2018-12-06 14:45 | CHAPLAIN ---
Type of Pastoral Visit _x__ Initial Visit ___ Follow-up Visit ___ On-call Visit ___ General Patient Visit ___ Spiritual Assessment ___ Family Conference ___ Bereavement ___ Rapid Response ___ Code Blue ___ Other (describe below) Pastoral Care Referral From _x__ Patient ___ Family ___ Nurse ___ Physician ___ Neurology Director ___ Exploration Engineer ___ Other (describe below) Sacrament/Intervention _x__ Active listening ___ Anointing ___ Taoism ___ Bereavement ___ Communion ___ Amanda exploration ___ ___ Life review _x__ Prayer ___ Reconciliation ___ Sacrament of Sick _x__ Supportive presence ___ Wedding ___ Other (describe below) Pastoral Comments
--- NOTE | 2018-12-06 18:46 | PCM.PROGNOTE ---
Patient Problems: Active and Suspected Problems Alcohol dependence (Acute) Subjective: Patient was seen and examined today, he states he feels very good, has no symptoms of nervousness, diaphoresis, or tremor. Patient states she is going to follow-up with 180 when he is discharged from the hospital. - Physical Exam General: Alert, Oriented x3, Cooperative, No apparent distress, Well developed, Well nourished HEENT: Atraumatic, PERRLA, EOMI, Normocephalic Oral: Moist Mucosa Neck: Supple, No JVD, Trachea Midline, Thyroid Normal Size and Texture Lungs: Clear to auscultation, Normal air movement, No rhonchi, No wheeze Cardiovascular: Regular rate, Regular Rhythm, Normal S1, Normal S2, No murmurs Abdomen: Bowel Sounds Present, Soft, Non Tender, Non-Distended Extremities: No clubbing, No cyanosis, No edema, Capillary Refill Less than 3 Seconds Skin: No rashes, No breakdown Musculoskeletal: No Tenderness to Palpation of Joints or Extremities Neurological: Cranial nerves II-XII grossly intact, Neuro grossly intact, Sensory exam intact to light touch and pain, Coordination normal Psych/Mental Status: Appropriate, Manic, Alert and oriented to time, place, person, mood and affect Vital Signs Temp Pulse Resp BP Pulse Ox 97.4 F L 78 16 132/93 H 97 12/06/18 18:00 12/06/18 18:00 12/06/18 18:00 12/06/18 18:00 12/06/18 18:00 Oxygen Delivery Method Room Air Weight: 86.183 kg Body Mass Index (BMI) 27.2 Intake and Output for Last 24 Hours 12/04/18 12/05/18 12/06/18 23:59 23:59 23:59 Intake Total 600 / 1200 3010 / 3010 Balance 600 / 1200 3010 / 3010 Medical Necessity - Tobacco Use Smoking Status: Current some day smoker Tobacco Use: Cigarettes Assessment/Plan All Active Problems Alcohol withdrawal (Acute) Alcohol dependence (Acute) #1 acute alcohol withdrawal-continue tapering of Librium #2 chronic alcoholism #3 chronic depression-continue present medication #4 hypertension-continue present medication #5 elevated liver enzymes-secondary to chronic alcohol usage-I do not feel the patient has alcoholic hepatitis Code Visit Inpatient E&M: 32428 Subs Hosp L2
[2018-12-07 02:37] VITALS: BP 120/79; PULSE 71; RESP 16; TEMP 36.4; O2SAT 96
[2018-12-07 02:38] VITALS: BP 120/79; PULSE 71; RESP 16; TEMP 36.4; O2SAT 96
[2018-12-07] MEDS: chlordiazePOXIDE 25 MG Capsule PO ×3 (02:40→18:32)
[2018-12-07 07:00] VITALS: BP 120/80; PULSE 80; RESP 14; TEMP 36.5; O2SAT 97
[2018-12-07] MEDS: Thiamine Hydrochloride 100 MG Tablet PO (07:41)
[2018-12-07] MEDS: Folic Acid 1 MG Tablet PO (07:41)
[2018-12-07] MEDS: Losartan Potassium 50 MG Tablet PO (07:41)
[2018-12-07] MEDS: Multivitamins,Therapeutic Tablet 1 TABLET PO (07:41)
[2018-12-07] MEDS: FLUoxetine 20 MG Capsule 40 MG PO (07:42)
[2018-12-07 15:07] VITALS: BP 124/83; PULSE 84; RESP 18; TEMP 36.6; O2SAT 96
--- NOTE | 2018-12-07 15:42 | PCM.PROGNOTE ---
Patient Problems: Active and Suspected Problems Alcohol dependence (Acute) Subjective: Patient was seen and examined today, he does not appear anxious or tremorous, I talked him about discharge plans tomorrow. Objective: General: Alert, Oriented x3, Cooperative, No apparent distress, Well developed, Well nourished HEENT: Atraumatic, PERRLA, EOMI, Normocephalic Oral: Moist Mucosa Neck: Supple, No JVD, Trachea Midline, Thyroid Normal Size and Texture Lungs: No rhonchi, No rales, Diminished, Wheezes - Expiratory wheezes bilaterally are noted Cardiovascular: Regular rate, Regular Rhythm, Normal S1, Normal S2, No murmurs Abdomen: Bowel Sounds Present, Soft, Non Tender, Non-Distended Extremities: No edema, Capillary Refill Less than 3 Seconds Skin: No rashes, No breakdown Musculoskeletal: No Tenderness to Palpation of Joints or Extremities Neurological: Cranial nerves II-XII grossly intact, Neuro grossly intact, Sensory exam intact to light touch and pain, Coordination normal Psych/Mental Status: Normal Affect, Appropriate, Alert and oriented to time, place, person, mood and affect - Physical Exam Vital Signs Temp Pulse Resp BP Pulse Ox 97.8 F 84 18 124/83 H 96 12/07/18 15:07 12/07/18 15:07 12/07/18 15:07 12/07/18 15:07 12/07/18 15:07 Oxygen Delivery Method Room Air Weight: 86.183 kg Body Mass Index (BMI) 27.2 Intake and Output for Last 24 Hours 12/05/18 12/06/18 12/07/18 23:59 23:59 23:59 Intake Total 600 / 1200 3010 / 3460 1530 / 1530 Balance 600 / 1200 3010 / 3460 1530 / 1530 Medical Necessity - Tobacco Use Smoking Status: Current some day smoker Tobacco Use: Cigarettes Assessment/Plan All Active Problems Alcohol withdrawal (Acute) Alcohol dependence (Acute) #1 acute alcohol withdrawal-continue tapering of Librium, patient may be stable for discharge tomorrow #2 chronic alcoholism #3 chronic depression-continue present medication #4 hypertension-continue present medication #5 elevated liver enzymes-secondary to chronic alcohol usage-I do not feel the patient has alcoholic hepatitis Code Visit Inpatient E&M: 40208 Subs Hosp L2
[2018-12-07 20:53] VITALS: BP 122/77; PULSE 84; RESP 18; TEMP 36.1; O2SAT 95
[2018-12-08 02:53] VITALS: BP 118/70; PULSE 73; RESP 16; TEMP 36.4; O2SAT 92
[2018-12-08] MEDS: chlordiazePOXIDE 25 MG Capsule PO (06:31)
[2018-12-08 07:30] VITALS: BP 122/90; PULSE 85; RESP 16; TEMP 36.4; O2SAT 98
[2018-12-08] MEDS: FLUoxetine 20 MG Capsule 40 MG PO (07:34)
[2018-12-08] MEDS: Losartan Potassium 50 MG Tablet PO (07:35)
[2018-12-08] MEDS: Folic Acid 1 MG Tablet PO (07:35)
[2018-12-08] MEDS: Thiamine Hydrochloride 100 MG Tablet PO (07:35)
[2018-12-08] MEDS: Multivitamins,Therapeutic Tablet 1 TABLET PO (07:35)
--- NOTE | 2018-12-08 09:03 | DCINST_ITS ---
- Discharge Diagnoses Current Active Problems: Current Active and Chronic Problems Alcohol dependence (Acute) You will use the following diet at home:: No restrictions Your food should be the consistency of: Regular Your liquids should be the consistency of: Regular/Thin Discharge Activity: Return to Normal Activity Weight Bearing Status: Full weight bearing Additional Instructions: NO ALCOHOL INTAKE. FOLLOW UP WITH [facility] OUTPATIENT Allergies/Adverse Reactions: Allergies No Known Allergies Allergy (Verified 12/05/18 11:45) Medications to take at Discharge Fluoxetine HCl 40 mg PO DAILY 12/05/18 Irbesartan 150 mg PO DAILY 12/05/18 Hydroxyzine Pamoate [Vistaril] 50 mg PO 4X/DAY PRN PRN #30 cap 12/08/18 The following prescriptions were given: Hydroxyzine Pamoate [Vistaril] 50 mg PO 4X/DAY PRN PRN #30 cap PRN Reason: Anxiety Prescription Printed Primary Care Physician: Johanne Eden MD [Primary Care Provider] - Test Results: Test results from this visit will be discussed in further detail at your follow- up appointment, if applicable. Please Follow Up With: [facility] When: Sunday
--- NOTE | 2018-12-08 19:16 | DS.PCM_ITS ---
Discharge Date and Diagnosis Date of Admission: 12/05/18 Date of Discharge: 12/08/18 - Primary Discharge Diagnosis #1 acute alcohol withdrawal #2 chronic alcoholism #3 chronic depression #4 hypertension #5 elevated liver enzymes-secondary to chronic alcohol usage - Secondary Discharge Diagnosis Chronic Problems COPD (chronic obstructive pulmonary disease) (Chronic) HTN (hypertension) (Chronic) Marijuana abuse (Chronic) Depression (Chronic) Nicotine abuse (Chronic) Hospital Course and Treatment Operations: None Procedures: None Summary of Care Provided: The patient is a 48 year old M who was seen in the emergency room at [facility] with chief complaint of alcohol withdrawal and request for detox services. Patient has a long history of alcoholism and had been through inpatient detox many times before according to the patient. Labs obtained in the emergency room shows slight elevations of the patient's liver enzymes-these were felt to be in keeping with chronic alcohol usage. Patient was admitted to [place] [id number], placed on a tapering dose of Librium, and his home medications were continued. Patient did not have any complications during his hospital stay. He was given support by social welfare administrator for follow-up at 180 after discharge. He had previously not been compliant with follow-up as an outpatient with sobriety services. On examination he appeared in good health and spirits. Vital signs as documented. Skin warm and dry and without overt rashes. Neck without JVD. Lungs clear. Heart exam notable for regular rhythm, normal sounds and absence of murmurs, rubs or gallops. Abdomen unremarkable and without evidence of organomegaly, masses, or abdominal aortic enlargement. Extremities nonedematous. Neuro: Cranial nerves II through XII are grossly intact, no focal motor deficits were noted, sensation to light touch and pinprick intact. Psych: Patient is alert and oriented x3, he does not appear anxious or depressed On 12/08/2018, patient was seen and examined and felt to be in stable condition for discharge home. - Physical Exam Vital Signs Temp Pulse Resp BP Pulse Ox 97.5 F L 85 16 122/90 H 98 12/08/18 07:30 12/08/18 07:30 12/08/18 07:30 12/08/18 07:30 12/08/18 07:30 Oxygen Delivery Method Room Air Weight: 86.183 kg Body Mass Index (BMI) 27.2 Intake and Output for Last 24 Hours 0912/07/18 12/08/18 23:59 23:59 23:59 Intake Total 3010 / 3460 1530 / 2330 1400 / 1400 Balance 3010 / 3460 1530 / 2330 1400 / 1400 Discharge Activity: Return to Normal Activity Weight Bearing Status: Full weight bearing Home Medications: Medications to take at Discharge Fluoxetine HCl 40 mg PO DAILY 12/05/18 Irbesartan 150 mg PO DAILY 12/05/18 Hydroxyzine Pamoate [Vistaril] 50 mg PO 4X/DAY PRN PRN #30 cap 12/08/18 Following Prescrptions Were Given to Patient: Hydroxyzine Pamoate [Vistaril] 50 mg PO 4X/DAY PRN PRN #30 cap PRN Reason: Anxiety Prescription Printed Primary Care Physician: Johanne Eden MD [Primary Care Provider] - Please Follow Up With: [facility] When: Sunday Disposition: Home Minutes spent on discharge:: 32 Patient Condition:: Stable Medical Necessity - Tobacco Use Smoking Status: Current some day smoker Tobacco Use: Cigarettes Meaningful Use Info Meaningful Use Diagnoses (Choose all that apply): None applicable Code Visit Inpatient E&M: 90493 Disch Hosp
== END 2018-12-08 10:11 | disposition home or self-care (01) | DRG 897 ==
LOC: ED 14:50 → MS3 15:07
PROVIDERS: Admitting Provider Internal Medicine; Emergency Provider Emergency Medicine; Family Provider Internal Medicine; PCP Internal Medicine; Referring Provider Internal Medicine; Visit Provider Internal Medicine
DX: F10.239 Alcohol dependence with withdrawal, unspecified (principal); I10 Essential (primary) hypertension; F32.9 Major depressive disorder, single episode, unspecified; R74.8 Abnormal levels of other serum enzymes; J44.9 Chronic obstructive pulmonary disease, unspecified; F17.210 Nicotine dependence, cigarettes, uncomplicated; F12.10 Cannabis abuse, uncomplicated
CPT/HCPCS: 80053; 80307; 80320; 85025; 99284; 99406; A4216; G0480

== ENCOUNTER 2019-05-09 13:01 | Inpatient (IN) | payer MEDICARE, MEDICAID, SELFPAY ==
[2019-05-09 13:02] VITALS: BP 149/77; PULSE 96; RESP 16; TEMP 36.7; O2SAT 98; BMI 28.4
--- NOTE | 2019-05-09 13:38 | RAD_ITS ---
STUDY: X-RAY CHEST REASON FOR EXAM: Male, 48 years old. Weakness TECHNIQUE: Single AP portable view of the chest. COMPARISON: None. FINDINGS: The lungs are clear and expanded. There is no demonstrated pleural abnormality. Normal size heart. Normal mediastinum and anabella. Normal visualized pulmonary arteries. Normal visualized aortic arch and descending thoracic aorta. There are mild degenerative changes of the visualized thoracic spine. Normal visualized ribs, clavicles, and shoulders. There is no demonstrated abnormality of the visualized soft tissue structures of the upper abdomen. RAD/Chest 1 View (Portable) IMPRESSION: Normal x-ray examination of the chest. Electronically Signed: Rommel Hackett, at 14:10 EST , Service support ,
[2019-05-09 13:47] LABS: Absolute Lymphocyte Count 1.82 X10^3/uL (0.83-4.51); Absolute Neutrophil Count 2.6 X10^3/uL (2.0-7.7); Basophil# 0.03 X10^3/uL; Basophil% 0.6 % (0-1); Eosinophil# 0.18 X10^3/uL; Eosinophils% 3.5 % (0-5); Hemoglobin 15.2 g/dL (13.0-16.5); Lymphocyte # 1.82 X10^3/ul (4.0); Lymphocyte % 35.2 % (19-41); Mean Corpuscular Hgb 33.6 pg (27.0-32.0); Mean Corpuscular Volume 101.8 fL (80-94); Mean Platelet Vol. 10.2 fl (6.2-12.0); Monocyte# 0.49 X10^3/uL; Monocyte% 9.5 % (0-10); NRBC Flagged by Analyzer 0 % (0-5); Neutrophil # 2.63 X10^3/uL (2.7-7.7); Neutrophil % 50.8 % (47-70); Platelet Count 249 K/mm3 (150-450); RBC Distribution Width CV 11.9 % (11.6-14.6); RBC Distribution Width SD 45.1 fl (35.1-43.9); Red Blood Count 4.52 M/mm3 (4.6-6.2); White Blood Count 5.2 K/mm3 (4.4-11.0)
--- NOTE | 2019-05-09 13:47 | ED.DCSUM_ITS ---
History of Present Illness Chief Complaint: ETOH Intox Current Severity: Moderate Maximum Severity: Moderate Narrative: She is here for alcohol detox. He drinks 12 beers a day, he tells me he is increasingly depressed but does not want to hurt himself or anyone else. The chief complaint for a time on the computer screen said suicidal ideations, I specifically asked the patient he denies any suicidal ideation admits to being depressed and wants to be done with alcohol but does not want to hurt himself and does not want to hurt anyone else. He denies any physical symptoms, he has not stopped drinking alcohol in a few years and does not know if he goes through withdrawal or not. Past Medical History - Allergies and Home Meds Allergies/Adverse Reactions: Allergies No Known Allergies Allergy (Verified 05/09/19 13:08) Primary Care Physician: Johanne Eden MD [Primary Care Provider] - Past Medical History: - - Traumatic brain injury, alcoholism Surgical History: tonsillectomy, - Smoking Status: Current some day smoker - Family History Maternal Family History: Reports: - Paternal Family History: Reports: Unknown Review of Systems General: Denies: Fever Eyes: Reports: - - Chronic right loss of peripheral vision Cardiovascular: Denies: Chest pain Respiratory: Denies: Dyspnea, Cough Gastrointestinal: Denies: Abdominal pain, Nausea Musculoskeletal: Denies: Myalgias Neurological: Denies: Headache, Weakness Psych: Reports: Depression, Anxiety. Denies: Suicidal thoughts, Suicidal ideations Hematologic: Denies: Easy bruising, Easy bleeding Physical Exam Vital Signs/Narrative: Vital Signs Temp Pulse Resp BP Pulse Ox 05/09/19 13:02 98.0 F 96 16 149/77 H 98 General: Well nourished, Well developed Eyes: Perrl, - - Right eye esotropia ENT: Moist mucous membranes Neck: Supple Cardiovascular: Regular rate, Regular rhythm Respiratory: No distress, CTA bilaterally Abdomen: Soft, Nontender Back: Nontender, Normal Inspection Extremities: Nontender Skin: Normal color Neurological: Alert, Oriented x3, Normal Strength, Normal Sensation Psychological: Normal affect Diagnostic/Tx/Re-eval - Medical Decision Making Patient has a normal emergency department work-up, I will call the hospitalist for admission for detox. Again he is not suicidal ED Disposition - Plan for ED Patient: Disposition: Acute Care Hospital [facility] Diagnosis: Alcohol dependence Referrals: Johanne Eden MD [Primary Care Provider] -
[2019-05-09 14:05] LABS: ALB/GLOB Ratio 0.9 RATIO (0.9-2.4); AST(SGOT) 82 U/L (15-37); Alanine Aminotransfer ALT/SGPT 62 U/L (16-61); Albumin, Serum 3.3 g/dL (3.2-5.0); Alkaline Phosphatase 77 U/L (45-117); Anion Gap 5 (5-15); BUN 10 mg/dL (7-18); BUN/Creat Ratio 9.6 RATIO (10-20); Calcium,Total 8.9 mg/dL (8.5-10.1); Chloride 101 mmol/L (98-107); Creatinine, Serum 1.04 mg/dL (0.70-1.30); EST Glomerular Filtration Rate 80 mL/min (>60); Est Glom Filt Rate - Afr Amer 97 mL/min (>60); Estimated Creatinine Clearance 87.74 ml/min; Globulin 3.6 g/dL (2.2-4.2); Glucose 97 mg/dL (74-106); Potassium 3.9 mmol/L (3.5-5.1); Protein, Total 6.9 g/dL (6.4-8.2); Sodium Level 138 mmol/L (136-145)
[2019-05-09 14:25] LABS: Amphetamine Urine VISTA NEGATIVE (<1000 ng/mL); Barbiturate Urine VISTA NEGATIVE (< 200 ng/mL); Benzodiazepine Urine VISTA NEGATIVE (< 200 ng/mL); Cocaine Urine VISTA NEGATIVE (< 300 ng/mL); Ecstacy Urine VISTA NEGATIVE (< 500 ng/mL); Methadone Urine VISTA NEGATIVE (< 300 ng/mL); PCP Urine VISTA NEGATIVE (< 25 ng/mL); THC Urine VISTA POSITIVE (< 50 ng/mL); Vista UDS pH Range 6
[2019-05-09 15:23] VITALS: RESP 16
--- NOTE | 2019-05-09 15:27 | PCM.HP.STD ---
Problem List (1) Alcohol dependence Status: Acute (2) Alcohol withdrawal Status: Acute Qualifiers: Complication of substance-induced condition: uncomplicated Qualified Code(s): F10.230 - Alcohol dependence with withdrawal, uncomplicated (3) COPD (chronic obstructive pulmonary disease) Status: Chronic (4) Depression Status: Chronic (5) HTN (hypertension) Status: Chronic (6) Marijuana abuse Status: Chronic (7) Nicotine abuse Status: Chronic History of Present Illness Date of Admission: 05/09/19 Chief Complaint: Alcohol withdrawal The patient is a 48 year old M who presents to the Emergency Room due to treatment for alcohol withdrawal. Patient reports last use around 4 AM this morning. Patient reports he drinks a 12 pack of Simpson ice of beer per day. He states he has been drinking heavily since he was 19. He has been in detox multiple times in the past, most recently November 2018. Patient reports he would like to attend inpatient treatment for alcohol dependence following withdrawal protocol. He currently complains of tremors. Denies other withdrawal symptoms. Reports occasional marijuana use. Patient is a pack and 1/2 per day smoker. Denies other drug use. He has a past medical history of chronic alcohol dependence, marijuana use, tobacco dependence, hypertension, COPD and depression. Past Medical History Past Medical History (Chronic Problems): Chronic Problems COPD (chronic obstructive pulmonary disease) (Chronic) HTN (hypertension) (Chronic) Marijuana abuse (Chronic) Depression (Chronic) Nicotine abuse (Chronic) Allergies No Known Allergies Allergy (Verified 05/09/19 13:08) Home Medications: Ambulatory Orders Medication Instructions Recorded Irbesartan 150 mg PO DAILY 12/05/18 Zoloft 05/09/19 Surgical History: tonsillectomy, - - Head and right eye surgery following traumatic injury. Psychiatric History: Depression Lives: Alone Smoking Status: Current every day smoker Tobacco Use: Cigarettes Alcohol: Heavy Drugs: Marijuana - *Family History Maternal History Items: - - Denies known maternal medical history including cardiac history. Paternal History Items: - - Denies known paternal medical history including cardiac history. Review of Systems Constitutional: Denies: Chills, Fever, Weight Change HEENT: Denies: Head Aches, Sinus Congestion, Sinus Drainage Cardiovascular: Denies: Chest Pain, Palpitations Respiratory: Denies: Cough, Shortness of breath at rest, Sputum production Gastrointestinal: Denies: Abdominal Pain, Nausea, Vomiting Genitourinary: Denies: Dysuria Musculoskeletal: Denies: Joint Pain, Joint Tenderness Skin: Denies: Rash, Wounds Neurological: Denies: Numbness, Tingling, Focal weakness Psychiatric: Reports: Depression Hematologic/ Lymphatic: Denies: Easy Bruising, Easy Bleeding VTE Information - Inpt Only VTE Present on Admission: No VTE Mechan Device Prophylaxis: None VTE Pharm Prophylaxis ordered?: No Reason prophylaxis not ordered:: Treatment Not Indicated Patient Problems: Active and Suspected Problems Alcohol dependence (Acute) - Physical Exam Vitals/I&O's: Vital Signs Temp Pulse Resp BP Pulse Ox 98.0 F 96 16 149/77 H 98 05/09/19 13:02 05/09/19 13:02 05/09/19 15:23 05/09/19 13:02 05/09/19 13:02 Oxygen Delivery Method Room Air Weight: 198 lb 6.656 oz Body Mass Index (BMI) 28.4 General: Alert, Oriented x3, Cooperative HEENT: Atraumatic, PERRLA, EOMI, Normocephalic Neck: Supple, No JVD, Negative Carotid Bruits Lungs: Clear to auscultation, Diminished Cardiovascular: Regular rate, No murmurs Abdomen: Bowel Sounds Present, Soft, Non Tender, Non-Distended Extremities: No clubbing, No cyanosis, No edema, Capillary Refill Less than 3 Seconds Skin: No rashes, No breakdown Musculoskeletal: No Tenderness to Palpation of Joints or Extremities Neurological: Cranial nerves II-XII grossly intact, Neuro grossly intact Psych/Mental Status: Normal Affect, Appropriate Laboratory Results 05/09/19 13:40: WBC 5.2, RBC 4.52 L, Hgb 15.2, Hct 46.0, MCV 101.8 H, MCH 33.6 H, MCHC 33.0, RDW Std Deviation 45.1 H, RDW Coeff of Kingsley 11.9, Plt Count 249, MPV 10.2, Immature Gran % (Auto) 0.400, Neut % (Auto) 50.8, Lymph % (Auto) 35.2, [place] % (Auto) 9.5, Eos % (Auto) 3.5, Baso % (Auto) 0.6, Absolute Neuts (auto) 2.6, Absolute Lymphs (auto) 1.82, Nucleated RBC % 0 05/09/19 13:40: Sodium 138, Potassium 3.9, Chloride 101, Carbon Dioxide 32.0, Anion Gap 5, BUN 10, Creatinine 1.04, Estim Creat Clear Calc 87.74, Est GFR (MDRD) Af Amer 97, Est GFR (MDRD) Non-Af 80, BUN/Creatinine Ratio 9.6 L, Glucose 97, Calcium 8.9, Total Bilirubin 0.50, AST 82 H, ALT 62 H, Alkaline Phosphatase 77, Total Protein 6.9, Albumin 3.3, Globulin 3.6, Albumin/Globulin Ratio 0.9 05/09/19 13:40: Ethyl Alcohol 5.0 05/09/19 14:10: Urine Opiates Screen NEGATIVE, Urine Methadone Screen NEGATIVE, Ur Barbiturates Screen NEGATIVE, Ur Phencyclidine Scrn NEGATIVE, Ur Amphetamines Screen NEGATIVE, U Methamphetamin-MDMA NEGATIVE, U Benzodiazepines Scrn NEGATIVE, Urine Cocaine Screen NEGATIVE, U Cannabinoids Screen POSITIVE H, Ur Drug Screen Comment Assessment/Plan All Active Problems Alcohol withdrawal (Acute) Alcohol dependence (Acute) 1. Alcohol withdrawal, chronic alcohol dependence-last use 4 AM. Alcohol level 5 on admission. [facility] protocol. Thiamine, multivitamin, folic acid supplementation. Librium taper per protocol with as needed Ativan for severe anxiety that is not responding to Librium taper. Patient plans on [facility] inpatient facility for ongoing treatment following alcohol withdrawal protocol. 2. Abnormal liver enzymes-secondary to #1. History of elevated levels as well. Trend liver profile. 3. Marijuana use-encourage cessation. Urine tox negative for other substances. 4. Tobacco dependence-encourage cessation. Nicotine replacement patch if desired. 5. Hypertension-continue ARB regimen, patient has not recently been taking. 6. Chronic COPD-no exacerbation. As needed albuterol aerosol. 7. Depression-continue Zoloft regimen. DVT prophylaxis-not indicated, low risk This patient was seen by STEVE Venegas under the supervision of Dr. Shaver.
[2019-05-09 16:18] VITALS: BMI 28.1
[2019-05-09 16:24] VITALS: BP 156/95; PULSE 88; RESP 16; TEMP 36.9; O2SAT 97
[2019-05-09 16:32] VITALS: BMI 28.2
[2019-05-09] MEDS: chlordiazePOXIDE 25 MG Capsule PO (16:56)
[2019-05-09 22:00] VITALS: BP 127/82; PULSE 67; RESP 16; TEMP 36.4; O2SAT 95
[2019-05-10] VITALS (8 sets, daily range): BP systolic 126–146; BP diastolic 83–105; PULSE 72–87; RESP 16–18; TEMP 36.3–36.9; O2SAT 93–98
[2019-05-10] MEDS: chlordiazePOXIDE 25 MG Capsule PO ×4 (00:03→18:07)
[2019-05-10] MEDS: 0.9% Saline Lock 10 ML Syringe IV (04:45)
[2019-05-10 08:16] LABS: AST(SGOT) 59 U/L (15-37); Alanine Aminotransfer ALT/SGPT 51 U/L (16-61); Albumin, Serum 2.8 g/dL (3.2-5.0); Alkaline Phosphatase 64 U/L (45-117); Bilirubin, Direct 0.13 mg/dL (0.00-0.30); Globulin 3.1 g/dL (2.2-4.2); Protein, Total 5.9 g/dL (6.4-8.2)
[2019-05-10] MEDS: Multivitamins,Therapeutic Tablet 1 TABLET PO (08:54)
[2019-05-10] MEDS: Losartan Potassium 50 MG Tablet PO (08:54)
[2019-05-10] MEDS: Thiamine Hydrochloride 100 MG Tablet PO (08:55)
[2019-05-10] MEDS: FLUoxetine 20 MG Capsule 40 MG PO (08:55)
[2019-05-10] MEDS: Folic Acid 1 MG Tablet PO (08:55)
--- NOTE | 2019-05-10 09:42 | PN_ITS ---
Patient Problems: Active and Suspected Problems Alcohol dependence (Acute) Subjective: Patient seen and examined. Denies significant withdrawal symptoms. Reports mild tremors. Otherwise feeling well. - Physical Exam Vitals/I&O's: Vital Signs Temp Pulse Resp BP Pulse Ox 97.4 F L 72 18 146/105 H 98 05/10/19 08:52 05/10/19 08:52 05/10/19 08:52 05/10/19 08:52 05/10/19 08:52 Oxygen Delivery Method Room Air Weight: 196 lb 13.965 oz Body Mass Index (BMI) 28.1 Intake and Output for Last 24 Hours 05/08/19 05/09/19 05/10/19 23:59 23:59 23:59 Intake Total 650 / 650 Balance 650 / 650 General: Alert, Oriented x3, Cooperative HEENT: Atraumatic, PERRLA, EOMI, Normocephalic Neck: Supple, No JVD, Negative Carotid Bruits Lungs: Clear to auscultation, Normal air movement Cardiovascular: Regular rate, Regular Rhythm, Normal S1, Normal S2, No murmurs Abdomen: Bowel Sounds Present, Soft, Non Tender Extremities: No clubbing, No cyanosis, No edema, Capillary Refill Less than 3 Seconds Skin: No rashes, No breakdown Musculoskeletal: No Tenderness to Palpation of Joints or Extremities Neurological: Cranial nerves II-XII grossly intact, Neuro grossly intact Psych/Mental Status: Normal Affect, Appropriate Laboratory Results 05/09/19 13:40: WBC 5.2, RBC 4.52 L, Hgb 15.2, Hct 46.0, MCV 101.8 H, MCH 33.6 H , MCHC 33.0, RDW Std Deviation 45.1 H, RDW Coeff of Kingsley 11.9, Plt Count 249, MPV 10.2, Immature Gran % (Auto) 0.400, Neut % (Auto) 50.8, Lymph % (Auto) 35.2, [place] % (Auto) 9.5, Eos % (Auto) 3.5, Baso % (Auto) 0.6, Absolute Neuts (auto) 2.6, Absolute Lymphs (auto) 1.82, Nucleated RBC % 0 05/09/19 13:40: Sodium 138, Potassium 3.9, Chloride 101, Carbon Dioxide 32.0, Anion Gap 5, BUN 10, Creatinine 1.04, Estim Creat Clear Calc 87.74, Est GFR (MDRD) Af Amer 97, Est GFR (MDRD) Non-Af 80, BUN/Creatinine Ratio 9.6 L, Glucose 97, Calcium 8.9, Total Bilirubin 0.50, AST 82 H, ALT 62 H, Alkaline Phosphatase 77, Total Protein 6.9, Albumin 3.3, Globulin 3.6, Albumin/Globulin Ratio 0.9 05/09/19 13:40: Ethyl Alcohol 5.0 05/09/19 14:10: Urine Opiates Screen NEGATIVE, Urine Methadone Screen NEGATIVE, Ur Barbiturates Screen NEGATIVE, Ur Phencyclidine Scrn NEGATIVE, Ur Amphetamines Screen NEGATIVE, U Methamphetamin-MDMA NEGATIVE, U Benzodiazepines Scrn NEGATIVE, Urine Cocaine Screen NEGATIVE, U Cannabinoids Screen POSITIVE H, Ur Drug Screen Comment 05/10/19 06:42: Total Bilirubin 0.60, Direct Bilirubin 0.13, AST 59 H, ALT 51, Alkaline Phosphatase 64, Total Protein 5.9 L, Albumin 2.8 L, Globulin 3.1 Current Medications Albuterol Sulfate (Ventolin Aerosols) 2.5 mg INHALATION Q2H PRN PRN PRN Reason: Shortness of Breath/Wheezing Chlordiazepoxide (Librium) 50 mg PO Q6H [facility]; Taper Stop: 05/12/19 18:29 Last Admin: 05/10/19 04:44 Dose: 50 mg Documented by: Dicyclomine HCl (Bentyl) 20 mg PO Q6H PRN PRN PRN Reason: abdominal discomfort Fluoxetine HCl (Prozac) 40 mg PO DAILY [facility] Last Admin: 05/10/19 08:55 Dose: 40 mg Documented by: Folic Acid (Folic Acid) [facility] Stop: 05/12/19 08:01 Last Admin: 05/10/19 08:55 Dose: 1 mg Documented by: Glucagon () 1 mg IM .X1 PRN PRN Reason: Hypoglycemia Hydroxyzine Pamoate (Vistaril Pamoate Capsule) 50 mg PO Q6H PRN PRN PRN Reason: Mild Anxiety (score 1/3) Dextrose (Dextrose 10%-Water) 250 mls @ 999 mls/hr IV .Q16M PRN; Protocol PRN Reason: HYPOGLYCEMIA Lorazepam (Ativan) 1 mg IV Q4H PRN PRN PRN Reason: Severe Anxiety Losartan Potassium (Cozaar) 50 mg PO DAILY [facility] Last Admin: 05/10/19 08:54 Dose: 50 mg Documented by: Melatonin (Melatonin) 3 mg PO QHS PRN PRN PRN Reason: INSOMNIA Methocarbamol (Methocarbamol) 750 mg PO Q6H PRN PRN PRN Reason: Muscle Aches Multivitamins (Multivitamin) [facility] Last Admin: 05/10/19 08:54 Dose: 1 tablet Documented by: Ondansetron HCl (Zofran) 4 mg IV Q8H PRN PRN PRN Reason: NAUSEA/VOMITING Sodium Chloride () 10 - 40 ml IV UD PRN PRN Reason: SALINE FLUSH Last Admin: 05/10/19 04:45 Dose: 10 ml Documented by: Thiamine HCl (Vitamin B1) [facility] Stop: 05/12/19 08:01 Last Admin: 05/10/19 08:55 Dose: 100 mg Documented by: Medical Necessity - Tobacco Use Smoking Status: Current every day smoker Tobacco Use: Cigarettes Assessment/Plan All Active Problems Alcohol withdrawal (Acute) Alcohol dependence (Acute) 1. Alcohol withdrawal, chronic alcohol dependence- Alcohol level 5 on admission. [facility] protocol. Thiamine, multivitamin, folic acid supplementation. Librium taper per protocol with as needed Ativan for severe anxiety that is not responding to Librium taper. Patient plans on [facility] inpatient facility for ongoing treatment following alcohol withdrawal protocol. 2. Abnormal liver enzymes-secondary to #1. History of elevated levels as well. Repeat liver profile improved. 3. Marijuana use-encourage cessation. Urine tox negative for other substances. 4. Tobacco dependence-encourage cessation. Nicotine replacement patch. 5. Hypertension-continue ARB regimen, patient has not recently been taking. 6. Chronic COPD-no exacerbation. As needed albuterol aerosol. 7. Depression-continue Zoloft regimen. DVT prophylaxis-not indicated, low risk This patient was seen by STEVE Venegas under the supervision of Dr. Amato.
[2019-05-10] MEDS: MELATONIN 3 MG TABLET PO (23:04)
[2019-05-11 02:20] VITALS: BP 108/69; PULSE 68; RESP 16; TEMP 36.4; O2SAT 93
[2019-05-11 02:21] VITALS: BP 108/69; PULSE 68; RESP 16; TEMP 36.4; O2SAT 93
[2019-05-11] MEDS: chlordiazePOXIDE 25 MG Capsule PO ×3 (02:22→18:15)
[2019-05-11] MEDS: Folic Acid 1 MG Tablet PO (08:21)
[2019-05-11] MEDS: FLUoxetine 20 MG Capsule 40 MG PO (08:21)
[2019-05-11] MEDS: Losartan Potassium 50 MG Tablet PO (08:22)
[2019-05-11] MEDS: Multivitamins,Therapeutic Tablet 1 TABLET PO (08:22)
[2019-05-11] MEDS: Thiamine Hydrochloride 100 MG Tablet PO (08:22)
[2019-05-11 08:26] VITALS: BP 131/87; PULSE 102; RESP 18; TEMP 36.8; O2SAT 98
--- NOTE | 2019-05-11 10:29 | PN_ITS ---
Patient Problems: Active and Suspected Problems Alcohol dependence (Acute) Subjective: Patient seen and examined. Denies significant withdrawal symptoms. Denies current complaints. No acute events overnight. - Physical Exam Vitals/I&O's: Vital Signs Temp Pulse Resp BP Pulse Ox 98.3 F 102 H 18 131/87 H 98 05/11/19 08:26 05/11/19 08:26 05/11/19 08:26 05/11/19 08:26 05/11/19 08:26 Oxygen Delivery Method Room Air Weight: 196 lb 13.965 oz Body Mass Index (BMI) 28.1 Intake and Output for Last 24 Hours 05/09/19 05/10/19 05/11/19 23:59 23:59 23:59 Intake Total 1370 / 1890 620 / 620 Balance 1370 / 1890 620 / 620 General: Alert, Oriented x3, Cooperative HEENT: Atraumatic, PERRLA, EOMI, Normocephalic Neck: Supple, No JVD, Negative Carotid Bruits Lungs: Clear to auscultation, Normal air movement Cardiovascular: Regular rate, Regular Rhythm, Normal S1, Normal S2, No murmurs Abdomen: Bowel Sounds Present, Soft, Non Tender, Non-Distended Extremities: No clubbing, No cyanosis, No edema, Capillary Refill Less than 3 Seconds Skin: No rashes, No breakdown Musculoskeletal: No Tenderness to Palpation of Joints or Extremities Neurological: Cranial nerves II-XII grossly intact, Neuro grossly intact Psych/Mental Status: Normal Affect, Appropriate Current Medications Albuterol Sulfate (Ventolin Aerosols) 2.5 mg INHALATION Q2H PRN PRN PRN Reason: Shortness of Breath/Wheezing Chlordiazepoxide (Librium) 50 mg PO Q8H [facility]; Taper Stop: 05/12/19 18:29 Last Admin: 05/11/19 02:22 Dose: 50 mg Documented by: Dicyclomine HCl (Bentyl) 20 mg PO Q6H PRN PRN PRN Reason: abdominal discomfort Fluoxetine HCl (Prozac) 40 mg PO DAILY [facility] Last Admin: 05/11/19 08:21 Dose: 40 mg Documented by: Folic Acid (Folic Acid) [facility] Stop: 05/12/19 08:01 Last Admin: 05/11/19 08:21 Dose: 1 mg Documented by: Glucagon () 1 mg IM .X1 PRN PRN Reason: Hypoglycemia Hydroxyzine Pamoate (Vistaril Pamoate Capsule) 50 mg PO Q6H PRN PRN PRN Reason: Mild Anxiety (score 1/3) Dextrose (Dextrose 10%-Water) 250 mls @ 999 mls/hr IV .Q16M PRN; Protocol PRN Reason: HYPOGLYCEMIA Lorazepam (Ativan) 1 mg IV Q4H PRN PRN PRN Reason: Severe Anxiety Losartan Potassium (Cozaar) 50 mg PO DAILY [facility] Last Admin: 05/11/19 08:22 Dose: 50 mg Documented by: Melatonin (Melatonin) 3 mg PO QHS PRN PRN PRN Reason: INSOMNIA Last Admin: 05/10/19 23:04 Dose: 3 mg Documented by: Methocarbamol (Methocarbamol) 750 mg PO Q6H PRN PRN PRN Reason: Muscle Aches Multivitamins (Multivitamin) [facility] Last Admin: 05/11/19 08:22 Dose: 1 tablet Documented by: Nicotine (Nicoderm Cq (Pbkc)) 14 mg TRANSDERM. DAILY [facility] Last Admin: 05/11/19 08:24 Dose: 14 mg Documented by: Ondansetron HCl (Zofran) 4 mg IV Q8H PRN PRN PRN Reason: NAUSEA/VOMITING Sodium Chloride () 10 - 40 ml IV UD PRN PRN Reason: SALINE FLUSH Last Admin: 05/10/19 04:45 Dose: 10 ml Documented by: Thiamine HCl (Vitamin B1) [facility] Stop: 05/12/19 08:01 Last Admin: 05/11/19 08:22 Dose: 100 mg Documented by: Medical Necessity - Tobacco Use Smoking Status: Current every day smoker Tobacco Use: Cigarettes Assessment/Plan All Active Problems Alcohol withdrawal (Acute) Alcohol dependence (Acute) 1. Alcohol withdrawal, chronic alcohol dependence- Alcohol level 5 on admission. [facility] protocol. Thiamine, multivitamin, folic acid supplementation. Librium taper per protocol with as needed Ativan for severe anxiety that is not responding to Librium taper. Patient plans on [facility] for ongoing treatment following alcohol withdrawal protocol. 2. Abnormal liver enzymes-secondary to #1. History of elevated levels as well. Repeat liver profile improved. 3. Marijuana use-encourage cessation. Urine tox negative for other substances. 4. Tobacco dependence-encourage cessation. Nicotine replacement patch. 5. Hypertension-continue ARB regimen, patient has not recently been taking. 6. Chronic COPD-no exacerbation. As needed albuterol aerosol. 7. Depression-continue Zoloft regimen. DVT prophylaxis-not indicated, low risk This patient was seen by STEVE Venegas under the supervision of Dr. Amato.
[2019-05-11 14:41] VITALS: BP 132/93; PULSE 80; RESP 18; TEMP 36.7; O2SAT 98
[2019-05-11 22:07] VITALS: BP 128/92; PULSE 79; RESP 16; TEMP 36.6; O2SAT 98
[2019-05-11 22:09] VITALS: BP 128/92; PULSE 79; RESP 16; TEMP 36.6; O2SAT 98
[2019-05-11] MEDS: MELATONIN 3 MG TABLET PO (22:12)
[2019-05-12 06:00] VITALS: BP 131/89; PULSE 82; RESP 16; TEMP 36.4; O2SAT 100
[2019-05-12] MEDS: chlordiazePOXIDE 25 MG Capsule PO (06:16)
[2019-05-12 07:43] VITALS: BP 130/86; PULSE 82; RESP 18; TEMP 36.3; O2SAT 96
[2019-05-12] MEDS: FLUoxetine 20 MG Capsule 40 MG PO (07:44)
[2019-05-12] MEDS: Folic Acid 1 MG Tablet PO (07:45)
[2019-05-12] MEDS: Multivitamins,Therapeutic Tablet 1 TABLET PO (07:45)
[2019-05-12] MEDS: Losartan Potassium 50 MG Tablet PO (07:45)
[2019-05-12] MEDS: Thiamine Hydrochloride 100 MG Tablet PO (07:45)
--- NOTE | 2019-05-12 10:30 | CASEMGMT ---
Social Work Note Pt is at [facility] for ETOH withdrawal and per handoff communications, pt is wanting to discharge to [facility]. SONDRA met with pt and introduced self and role at [facility] [place]. Pt confirms he wishes to discharge to [facility] for walk in assessment today. SW asked pt if he wanted this worker to call [facility] to let them know pt will be coming to [facility] for walk in assessment today and pt gave this worker permission to do so. Pt signed release of information document, placed on pt's chart. SONDRA placed a call to [facility] and spoke with Irish and updated her that pt will be discharged today and will be coming to [facility] for walk in assessment. Irish states understanding. Plan: Discharge to [facility] today for walk in assessment Denisha Gonzalez [employer]UDE [employer], MANAGER RESPIRATORY
--- NOTE | 2019-05-12 11:32 | PCM.DC ---
- Discharge Diagnoses Current Active Problems: Current Active and Chronic Problems Alcohol dependence (Acute) You will use the following diet at home:: No restrictions Your food should be the consistency of: Regular Your liquids should be the consistency of: Regular/Thin Discharge Activity: Return to Normal Activity Weight Bearing Status: Full weight bearing Additional Instructions: go to 180 today Allergies/Adverse Reactions: Allergies No Known Allergies Allergy (Verified 05/09/19 13:08) Medications to take at Discharge Irbesartan 150 mg PO DAILY 12/05/18 Zoloft 05/09/19 Nicotine [Nicoderm] 14 mg TRANSDERM. DAILY #30 patch 05/12/19 The following prescriptions were given: Nicotine [Nicoderm] 14 mg TRANSDERM. DAILY #30 patch Transmission Status: Pending to [facility] Primary Care Physician: Johanne Eden MD [Primary Care Provider] - Please follow up with your Primary Care Physician in: in 2 weeks Test Results: Test results from this visit will be discussed in further detail at your follow-up appointment, if applicable.
--- NOTE | 2019-05-13 11:29 | PCM.DC.SUM ---
Discharge Date and Diagnosis Date of Admission: 05/09/19 Date of Discharge: 05/12/19 - Primary Discharge Diagnosis 1. Alcohol withdrawal, chronic alcohol dependence 2. Abnormal liver enzymes-secondary to #1 3. Marijuana use 4. Tobacco dependence 5. Hypertension 6. Chronic COPD 7. 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 - Secondary Discharge Diagnosis Chronic Problems COPD (chronic obstructive pulmonary disease) (Chronic) HTN (hypertension) (Chronic) Marijuana abuse (Chronic) Depression (Chronic) Nicotine abuse (Chronic) Hospital Course and Treatment Operations: None Procedures: None Summary of Care Provided: The patient is a 48 year old M seen in the emergency room at [facility] with a chief complaint of alcohol withdrawal, patient is a chronic alcoholic and has been admitted several times for detox services, the last time he was admitted here was in 2019 and he was instructed to follow-up with 180 which she did not. Patient stated he thought he could handle himself. Patient has a history of remote head trauma and has cognitive impairment. On his labs, patient had a positive tox screen for cannabinoids, his ethyl alcohol level was 5. Patient's liver enzymes are slightly elevated. Patient showed minimal alcohol withdrawal symptoms. Patient was admitted to [place] [id number], the protocol for alcohol detox was followed, patient symptoms resolved, repeat liver enzymes were improved. Patient was set up with 180 at the time of discharge to follow-up. On 05/12/2019, patient was seen and examined: On examination he appeared in good health and spirits. Vital signs as documented. Skin warm and dry and without overt rashes. Neck without JVD. Lungs clear. Heart exam notable for regular rhythm, normal sounds and absence of murmurs, rubs or gallops. Abdomen unremarkable and without evidence of organomegaly, masses, or abdominal aortic enlargement. Extremities nonedematous. Neuro: Cranial nerves II through XII are grossly intact, no focal motor deficits were noted, sensation to light touch and pinprick intact. Psych: Patient is alert and oriented x3, he does not appear anxious or depressed, there is some signs of cognitive impairment on examination On 05/12/2019, patient was seen and examined and felt to be in stable condition for discharge to [facility]. - Physical Exam Vitals/I&O's: Vital Signs Temp Pulse Resp BP Pulse Ox 97.4 F L 82 18 130/86 H 96 05/12/19 07:43 02/17/20 07:43 05/12/19 07:43 05/12/19 07:43 05/12/19 07:43 Oxygen Delivery Method Room Air Weight: 89.3 kg Body Mass Index (BMI) 28.1 Intake and Output for Last 24 Hours 05/11/19 05/12/19 05/13/19 23:59 23:59 23:59 Intake Total 1720 / 1920 660 / 660 Balance 1720 / 1920 660 / 660 Discharge Activity: Return to Normal Activity Weight Bearing Status: Full weight bearing Home Medications: Medications to take at Discharge Irbesartan 150 mg PO DAILY 12/05/18 Zoloft 05/09/19 Nicotine [Nicoderm] 14 mg TRANSDERM. DAILY #30 patch 05/12/19 Following Prescrptions Were Given to Patient: Nicotine [Nicoderm] 14 mg TRANSDERM. DAILY #30 patch Transmission Status: Received by [facility] Primary Care Physician: Johanne Eden MD [Primary Care Provider] - Please follow up with your Primary Care Physician in: in 2 weeks Disposition: Home Minutes spent on discharge:: 31 Patient Condition:: Stable Medical Necessity - Tobacco Use Smoking Status: Current every day smoker Tobacco Use: Cigarettes Meaningful Use Info Meaningful Use Diagnoses (Choose all that apply): None applicable Code Visit Inpatient E&M: 16694 Disch Hosp
== END 2019-05-12 12:50 | disposition home or self-care (01) | DRG 897 ==
LOC: ED 14:40 → MS3 15:47
PROVIDERS: Nurse Practitioner Family; Admitting Provider Internal Medicine; Emergency Provider Emergency Medicine; PCP Internal Medicine; Visit Provider Internal Medicine
DX: F10.230 Alcohol dependence with withdrawal, uncomplicated (principal); F17.210 Nicotine dependence, cigarettes, uncomplicated; Y90.0 Blood alcohol level of less than 20 mg/100 ml; I10 Essential (primary) hypertension; F32.9 Major depressive disorder, single episode, unspecified; J44.9 Chronic obstructive pulmonary disease, unspecified; R74.8 Abnormal levels of other serum enzymes; F12.90 Cannabis use, unspecified, uncomplicated; S09.90XS Unspecified injury of head, sequela; R41.89 Other symptoms and signs involving cognitive functions and awareness
CPT/HCPCS: 36415; 71045; 80053; 80076; 80307; 80320; 85025; 99284; 99406; A4216; G0480

== ENCOUNTER 2019-05-14 15:44 | Inpatient (IN) | payer MEDICARE, MEDICAID, SELFPAY ==
[2019-05-14] VITALS (7 sets, daily range): BP systolic 99–118; BP diastolic 61–78; PULSE 74–92; RESP 12–18; TEMP 36.4–36.7; O2SAT 94–98; BMI 29.9; BMI 26.6
--- NOTE | 2019-05-14 15:56 | ED.VISSUMM ---
- ER Visit Summary Date of Service: 05/14/19 Chief Complaint: Detox for alcohol and marijuana History of Present Illness: The patient is a 48 M who presents requesting detox for alcohol and marijuana. Patient was brought in by police today. Patient states he smokes marijuana daily and drinks approximately 24 beers per day. Patient states he drinks 12 beers in the morning and then takes a 12-hour break. Patient states he then drinks 12 beers in the evening. Patient states his last drink was today but he does not remember the time. Patient admits to smoking a lot of marijuana today. Physical Examination: Vital signs are stable. Patient is afebrile. Patient is in no acute distress. Oral mucosa is pink and moist. Oropharynx is clear. Neck is supple. Trachea is midline. There is no JVD. Heart was regular rate and rhythm. Lungs are clear and equal bilaterally. Abdomen is soft. Bowel sounds are normal. There is no tenderness. Cranial nerves II through XII are grossly intact. There are no focal motor or sensory deficits noted. Extremities are intact. There is no calf tenderness or edema. Test Results: CBC, comprehensive metabolic profile, urinalysis were obtained and were essentially within normal limits. Urine tox screen was positive for benzodiazepines and cannabinoids. Patient denies being prescribed any benzodiazepines. Patient denies taking them recreationally. Serum alcohol level was obtained and was 217. Emergency Department Course and Treatment: Patient is resting comfortably on reevaluation. Patient again denies being prescribed any benzodiazepines or taking them recreationally. Case was discussed with the hospitalist. Patient will be admitted. Patient understands and is agreeable with the plan. All questions were answered. Disposition: Admit to hospital Impression: 1. Alcohol abuse 2. Cannabinoid abuse This note was generated with [employer] dictation software. It may contain incorrect words, spelling, and punctuation that were not noted in review of the chart prior to signing ED Disposition - Plan for ED Patient: Disposition: Acute Care Hospital [facility] Diagnosis: Alcohol abuse, Marijuana abuse Referrals: Johanne Eden MD [Primary Care Provider] -
[2019-05-14] MEDS: 0.9% Normal Saline 1,000 ML 1000 ML IV (16:19)
[2019-05-14 16:25] LABS: Absolute Lymphocyte Count 1.91 X10^3/uL (0.83-4.51); Absolute Neutrophil Count 4.1 X10^3/uL (2.0-7.7); Basophil# 0.03 X10^3/uL; Basophil% 0.4 % (0-1); Eosinophil# 0.13 X10^3/uL; Eosinophils% 1.9 % (0-5); Hematocrit 43.2 % (40-54); Hemoglobin 14.3 g/dL (13.0-16.5); Lymphocyte # 1.91 X10^3/ul (4.0); Lymphocyte % 27.8 % (19-41); Mean Corp Hgb Conc 33.1 g/dL (32-36); Mean Corpuscular Hgb 34.6 pg (27.0-32.0); Mean Corpuscular Volume 104.6 fL (80-94); Monocyte# 0.62 X10^3/uL; NRBC Flagged by Analyzer 0 % (0-5); Neutrophil # 4.09 X10^3/uL (2.7-7.7); Neutrophil % 59.7 % (47-70); Platelet Count 226 K/mm3 (150-450); RBC Distribution Width CV 12.4 % (11.6-14.6); RBC Distribution Width SD 47.8 fl (35.1-43.9); Red Blood Count 4.13 M/mm3 (4.6-6.2); White Blood Count 6.9 K/mm3 (4.4-11.0)
[2019-05-14 16:42] LABS: ALB/GLOB Ratio 1.1 RATIO (0.9-2.4); AST(SGOT) 104 U/L (15-37); Alanine Aminotransfer ALT/SGPT 116 U/L (16-61); Albumin, Serum 3.4 g/dL (3.2-5.0); Alkaline Phosphatase 72 U/L (45-117); Anion Gap 5 (5-15); BUN 16 mg/dL (7-18); BUN/Creat Ratio 15.7 RATIO (10-20); Calcium,Total 8.8 mg/dL (8.5-10.1); Chloride 110 mmol/L (98-107); Creatinine, Serum 1.02 mg/dL (0.70-1.30); EST Glomerular Filtration Rate 82 mL/min (>60); Est Glom Filt Rate - Afr Amer 99 mL/min (>60); Estimated Creatinine Clearance 83.82 ml/min; Globulin 3.2 g/dL (2.2-4.2); Glucose 97 mg/dL (74-106); Lipase 190 U/L (73-393); Potassium 4.3 mmol/L (3.5-5.1); Protein, Total 6.6 g/dL (6.4-8.2); Sodium Level 141 mmol/L (136-145)
[2019-05-14 17:05] LABS: Bacteria 0 SEEN /hpf (None Seen); Mucous, Urine 0 SEEN /hpf (<or=2+); Red Blood Cells-Urine 0 SEEN /hpf (0-5); Squamous Epithelial Cells - UA 0 SEEN /hpf (0-5); White Blood Cells 0 SEEN /hpf (0-5)
[2019-05-14 17:14] LABS: Color, Urine Yellow (Yellow); Glucose, Dipstick Normal (Normal); Ketone-Dipstick Negative (Negative); Leukocyte Esterase-Dipstick Negative /ul (Negative); Nitrite-Dipstick Negative (Negative); Occult Blood-Urine Negative /ul (Negative); Protein-Dipstick 15 mg/dl (Negative); Specific Gravity, Urine 1.015 (1.002-1.030); Urine Bilirubin Dipstick Negative (Negative); Urine Clarity Clear (Clear); Urine Urobilinogen Normal (Normal)
[2019-05-14 17:24] LABS: Amphetamine Urine VISTA NEGATIVE (<1000 ng/mL); Barbiturate Urine VISTA NEGATIVE (< 200 ng/mL); Benzodiazepine Urine VISTA POSITIVE (< 200 ng/mL); Cocaine Urine VISTA NEGATIVE (< 300 ng/mL); Ecstacy Urine VISTA NEGATIVE (< 500 ng/mL); Methadone Urine VISTA NEGATIVE (< 300 ng/mL); PCP Urine VISTA NEGATIVE (< 25 ng/mL); THC Urine VISTA POSITIVE (< 50 ng/mL); Vista UDS pH Range 5
--- NOTE | 2019-05-14 20:00 | PCM.HP.STD ---
History of Present Illness Date of Admission: 05/14/19 Chief Complaint: EtOH The patient is a 48 year old M with a PMH as below who presents from [facility] by police for causing drunken disturbance. He is here to undergo detox. He states that he is tried in the past on ago rehab there was a very serious attempt. He also admits to smoking a decent amount of marijuana every day. He drinks about 12 beers a day and is almost always at the point of blacking out. He denies any other drug use besides cigarettes and has no fevers or chills. He was just here in the hospital and was discharged 2 days ago after undergoing alcohol withdrawal treatment. Past Medical History Past Medical History (Chronic Problems): Chronic Problems COPD (chronic obstructive pulmonary disease) (Chronic) HTN (hypertension) (Chronic) Marijuana abuse (Chronic) Depression (Chronic) Nicotine abuse (Chronic) Allergies No Known Allergies Allergy (Verified 05/14/19 15:48) Home Medications: Ambulatory Orders Medication Instructions Recorded Fluoxetine HCl 40 mg PO DAILY 05/14/19 Irbesartan [Avapro] 150 mg PO DAILY 05/14/19 Nicotine [Nicoderm Cq] 21 mg TP DAILY 05/14/19 Surgical History: tonsillectomy, - - Head and right eye surgery following traumatic injury. Psychiatric History: Depression Smoking Status: Current every day smoker Tobacco Use: Cigarettes, Vapor Alcohol: Heavy Drugs: Marijuana - *Family History Maternal History Items: - - Denies known maternal medical history including cardiac history. Paternal History Items: - - Denies known paternal medical history including cardiac history. Review of Systems Constitutional: Denies: Chills, Fever, Weight Change HEENT: Denies: Head Aches, Sinus Congestion, Sinus Drainage Cardiovascular: Denies: Chest Pain, Palpitations Respiratory: Denies: Cough, Shortness of breath at rest, Sputum production Gastrointestinal: Denies: Abdominal Pain, Nausea, Vomiting Genitourinary: Denies: Dysuria Musculoskeletal: Denies: Joint Pain, Joint Tenderness Skin: Denies: Rash, Wounds Neurological: Denies: Numbness, Tingling, Focal weakness Psychiatric: Denies: Anxiety, Depression, Homicidal Ideations, Suicidal Ideations Hematologic/ Lymphatic: Denies: Easy Bruising, Easy Bleeding VTE Information - Inpt Only VTE Present on Admission: No Patient Problems: Active and Suspected Problems Alcohol abuse (Acute) - Physical Exam Vitals/I&O's: Vital Signs Temp Pulse Resp BP Pulse Ox 97.6 F L 89 18 110/65 98 05/14/19 15:45 05/14/19 19:33 05/14/19 19:33 05/14/19 19:33 05/14/19 19:33 Oxygen Delivery Method Room Air Weight: 197 lb 5.019 oz Body Mass Index (BMI) 29.9 Intake and Output for Last 24 Hours 05/12/19 05/13/19 05/14/19 23:59 23:59 23:59 Intake Total 1000 / 1000 Balance 1000 / 1000 General: Alert, Oriented x3, Cooperative, No apparent distress, - - Intoxicated HEENT: Atraumatic, PERRLA, EOMI, Normocephalic Oral: Dry Mucosa Neck: Supple, No JVD Lungs: Clear to auscultation, Normal air movement, No rhonchi, No wheeze, No rales Cardiovascular: Regular rate, Regular Rhythm, Normal S1, Normal S2, No murmurs Abdomen: Soft, Non Tender, Non-Distended, No Hepato-splenomegaly Extremities: No edema, Capillary Refill Less than 3 Seconds Skin: No rashes, No breakdown Neurological: Neuro grossly intact, Sensory exam intact to light touch and pain Psych/Mental Status: Restless, - - Intoxicated Laboratory Results 05/14/19 16:18: WBC 6.9, RBC 4.13 L, Hgb 14.3, Hct 43.2, MCV 104.6 H, MCH 34.6 H, MCHC 33.1, RDW Std Deviation 47.8 H, RDW Coeff of Kingsley 12.4, Plt Count 226, MPV 10.0, Immature Gran % (Auto) 1.200 H, Neut % (Auto) 59.7, Lymph % (Auto) 27.8, [place] % (Auto) 9.0, Eos % (Auto) 1.9, Baso % (Auto) 0.4, Absolute Neuts (auto) 4.1, Absolute Lymphs (auto) 1.91, Nucleated RBC % 0 05/14/19 16:18: Sodium 141, Potassium 4.3, Chloride 110 H, Carbon Dioxide 26.0, Anion Gap 5, BUN 16, Creatinine 1.02, Estim Creat Clear Calc 83.82, Est GFR (MDRD) Af Amer 99, Est GFR (MDRD) Non-Af 82, BUN/Creatinine Ratio 15.7, Glucose 97, Calcium 8.8, Total Bilirubin 0.40, AST 104 H, ALT 116 H, Alkaline Phosphatase 72, Total Protein 6.6, Albumin 3.4, Globulin 3.2, Albumin/Globulin Ratio 1.1, Lipase 190 05/14/19 16:18: Ethyl Alcohol 217.0 05/14/19 17:00: Urine Color Yellow, Urine Clarity Clear, Urine pH 5.0, Ur Specific [place] 1.015, Urine Protein 15 H, Urine Glucose (UA) Normal, Urine Ketones Negative, Urine Occult Blood Negative, Urine Nitrite Negative, Urine Bilirubin Negative, Urine Urobilinogen Normal, Ur Leukocyte Esterase Negative, Urine RBC 0 SEEN, Urine WBC 0 SEEN, Ur Squamous Epith Cells 0 SEEN, Urine Bacteria 0 SEEN, Urine Mucus 0 SEEN 05/14/19 17:00: Urine Opiates Screen NEGATIVE, Urine Methadone Screen NEGATIVE, Ur Barbiturates Screen NEGATIVE, Ur Phencyclidine Scrn NEGATIVE, Ur Amphetamines Screen NEGATIVE, U Methamphetamin-MDMA NEGATIVE, U Benzodiazepines Scrn POSITIVE H, Urine Cocaine Screen NEGATIVE, U Cannabinoids Screen POSITIVE H, Ur Drug Screen Comment Current Medications Sodium Chloride () 10 - 40 ml IV UD PRN PRN Reason: SALINE FLUSH Assessment/Plan All Active Problems Alcohol withdrawal (Acute) Alcohol dependence (Acute) Alcohol abuse (Acute) 1. Acute alcohol intoxication requesting detox/elevated LFTs -We will place him on the alcohol withdrawal protocol -Can restart his home antidepressants -Has known elevation in his liver enzymes 2. Tobacco abuse/marijuana abuse -Can give him a nicotine patch if he needs it -Encourage cessation of both marijuana and cigarettes 3. HTN -We will continue with his arb -Blood pressure is normal at the moment DVT: Low risk Code Visit Inpatient E&M: 36768 Init Hosp L2
[2019-05-14] MEDS: chlordiazePOXIDE 25 MG Capsule 50 MG PO (22:04)
[2019-05-14] MEDS: Dicyclomine 10 MG Capsule 20 MG PO (22:31)
[2019-05-15] VITALS (8 sets, daily range): BP systolic 126–137; BP diastolic 74–94; PULSE 78–107; RESP 16–18; TEMP 36.3–37.3; O2SAT 94–98
[2019-05-15] MEDS: chlordiazePOXIDE 25 MG Capsule 50 MG PO ×4 (03:08→22:26)
--- NOTE | 2019-05-15 03:17 | NURSING ---
Pt asking when he can leave repeatedly saying i don't need to be here, i only drank two days pt stating he wants to leave here today to go to [facility] appointment. educated pt regarding detox program. pt requesting to speak with Case management in am
--- NOTE | 2019-05-15 07:50 | PN_ITS ---
Patient Problems: Active and Suspected Problems Alcohol abuse (Acute) Vitals/I&O's: Vital Signs Temp Pulse Resp BP Pulse Ox 98.8 F 94 18 136/74 H 95 05/15/19 03:05 05/15/19 03:05 05/15/19 03:05 05/15/19 03:05 05/15/19 03:05 Oxygen Delivery Method Room Air Weight: 84.141 kg Body Mass Index (BMI) 26.6 Intake and Output for Last 24 Hours 05/13/19 05/14/19 05/15/19 23:59 23:59 23:59 Intake Total 1000 / 1100 400 / 400 Balance 1000 / 1100 400 / 400 Laboratory Results 05/14/19 16:18: WBC 6.9, RBC 4.13 L, Hgb 14.3, Hct 43.2, MCV 104.6 H, MCH 34.6 H , MCHC 33.1, RDW Std Deviation 47.8 H, RDW Coeff of Kingsley 12.4, Plt Count 226, MPV 10.0, Immature Gran % (Auto) 1.200 H, Neut % (Auto) 59.7, Lymph % (Auto) 27.8, [place] % (Auto) 9.0, Eos % (Auto) 1.9, Baso % (Auto) 0.4, Absolute Neuts (auto) 4.1, Absolute Lymphs (auto) 1.91, Nucleated RBC % 0 05/14/19 16:18: Sodium 141, Potassium 4.3, Chloride 110 H, Carbon Dioxide 26.0, Anion Gap 5, BUN 16, Creatinine 1.02, Estim Creat Clear Calc 83.82, Est GFR (MDRD) Af Amer 99, Est GFR (MDRD) Non-Af 82, BUN/Creatinine Ratio 15.7, Glucose 97, Calcium 8.8, Total Bilirubin 0.40, AST 104 H, ALT 116 H, Alkaline Phosphatase 72, Total Protein 6.6, Albumin 3.4, Globulin 3.2, Albumin/Globulin Ratio 1.1, Lipase 190 05/14/19 16:18: Ethyl Alcohol 217.0 05/14/19 17:00: Urine Color Yellow, Urine Clarity Clear, Urine pH 5.0, Ur Specific [place] 1.015, Urine Protein 15 H, Urine Glucose (UA) Normal, Urine Ketones Negative, Urine Occult Blood Negative, Urine Nitrite Negative, Urine Bilirubin Negative, Urine Urobilinogen Normal, Ur Leukocyte Esterase Negative, Urine RBC 0 SEEN, Urine WBC 0 SEEN, Ur Squamous Epith Cells 0 SEEN, Urine Bacteria 0 SEEN, Urine Mucus 0 SEEN 05/14/19 17:00: Urine Opiates Screen NEGATIVE, Urine Methadone Screen NEGATIVE, Ur Barbiturates Screen NEGATIVE, Ur Phencyclidine Scrn NEGATIVE, Ur Amphetamines Screen NEGATIVE, U Methamphetamin-MDMA NEGATIVE, U Benzodiazepines Scrn POSITIVE H, Urine Cocaine Screen NEGATIVE, U Cannabinoids Screen POSITIVE H, Ur Drug Screen Comment Current Medications Chlordiazepoxide (Librium) 50 mg PO Q6H ELIZABETH; Taper Stop: 05/17/19 22:59 Last Admin: 05/15/19 03:08 Dose: 50 mg Documented by: Dicyclomine HCl (Bentyl) 20 mg PO Q6H PRN PRN PRN Reason: abdominal discomfort Last Admin: 05/14/19 22:31 Dose: 20 mg Documented by: [facility]) [facility] Stop: 05/17/19 08:01 Hydroxyzine Pamoate (Vistaril Pamoate Capsule) 50 mg PO Q6H PRN PRN PRN Reason: Mild Anxiety (score 1/3) Lorazepam (Ativan) 1 mg IV Q2H PRN PRN PRN Reason: Severe Anxiety Lorazepam (Ativan) 2 mg IV X1 PRN PRN Reason: Seizure Methocarbamol (Methocarbamol) 750 mg PO Q6H PRN PRN PRN Reason: Muscle Aches Multivitamins (Multivitamin) [facility] Sodium Chloride () 10 - 40 ml IV UD PRN PRN Reason: SALINE FLUSH Thiamine HCl (Vitamin B1) [facility] Stop: 05/17/19 08:01 Medical Necessity - Tobacco Use Smoking Status: Current every day smoker Tobacco Use: Cigarettes, Vapor Assessment/Plan All Active Problems Alcohol withdrawal (Acute) Alcohol dependence (Acute) Alcohol abuse (Acute)
[2019-05-15] MEDS: Multivitamins,Therapeutic Tablet 1 TABLET PO (08:08)
[2019-05-15] MEDS: Thiamine Hydrochloride 100 MG Tablet PO (08:08)
[2019-05-15] MEDS: Folic Acid 1 MG Tablet PO (08:08)
--- NOTE | 2019-05-15 11:13 | CASEMGMT ---
Social Work Note Pt is at [facility] for ETOH withdrawal. Pt was discharged from [facility] on 05/12/2019 for ETOH withdrawal and at that time the plan was for pt to go to [facility] for walk in assessment. Per notes, pt does have an appointment with [facility] today at 3:00pm. SW in to speak with pt. Pt confirms he does have an appointment with [facility] today at 3:00pm. SW informed pt that this worker is not sure if pt will be discharged today but informed pt that this worker could call [facility] to see if staff could come to [facility] to speak with pt while pt is at [facility]. Pt is agreeable to [facility] being called and seeing if they can speak to pt while pt is at [facility]. SONDRA placed a call to [facility] and spoke with Whitney Brennan. SONDRA updated Whitney that pt was supposed to have an appointment today at 3:00pm but pt will be at [facility] today and asked if staff could come to [facility] to speak with pt. Whitney states she is able to come to [facility] today at 1:00pm to speak with pt. SONDRA updated physician, RN and pt. Plan: [facility] will meet with pt today at 1:00pm Denisha Gonzalez [employer] MECH[employer]IC, BUSINESS LAW INSTRUCTOR
--- NOTE | 2019-05-15 14:39 | PN_ITS ---
<John Chun - Last Filed: 05/15/19 14:39> Patient Problems: Active and Suspected Problems Alcohol abuse (Acute) Reason for Visit: alcohol withdrawal Subjective: Pt was here two days prior to this admission, had completed alcohol detox, went home, drank that day, and was brought in by the industrial energy engineer after being found blacked out. He expresses desire to quit and attain sobriety. He wants to commit to daily therapy. He met with 180 today and did not want to do a assisted inpatient program. He plans to complete the withdrawal protocol here and pursue [facility] [place] as outpatient. Today he has mild upper extremity tremor, otherwise he feels he is doing well. Vitals/I&O's: Vital Signs Temp Pulse Resp BP Pulse Ox 99.2 F H 92 16 135/82 H 94 05/15/19 14:32 05/15/19 14:32 05/15/19 14:32 05/15/19 14:32 05/15/19 14:32 Oxygen Delivery Method Room Air Weight: 185 lb 8 oz Body Mass Index (BMI) 26.6 Intake and Output for Last 24 Hours 05/13/19 05/14/19 05/15/19 23:59 23:59 23:59 Intake Total 1000 / 1100 400 / 400 Balance 1000 / 1100 400 / 400 General: Alert, Oriented x3, Cooperative HEENT: Atraumatic, PERRLA, EOMI, Normocephalic Neck: Supple, No JVD, Negative Carotid Bruits Lungs: Clear to auscultation, Normal air movement Cardiovascular: Regular rate, No murmurs Abdomen: Bowel Sounds Present, Soft, Non Tender Extremities: No edema, Capillary Refill Less than 3 Seconds Skin: No rashes, No breakdown Musculoskeletal: No Tenderness to Palpation of Joints or Extremities Neurological: Cranial nerves II-XII grossly intact, - - upper extremity tremor. Psych/Mental Status: Normal Affect, Appropriate Laboratory Results 05/14/19 16:18: WBC 6.9, RBC 4.13 L, Hgb 14.3, Hct 43.2, MCV 104.6 H, MCH 34.6 H , MCHC 33.1, RDW Std Deviation 47.8 H, RDW Coeff of Kingsley 12.4, Plt Count 226, MPV 10.0, Immature Gran % (Auto) 1.200 H, Neut % (Auto) 59.7, Lymph % (Auto) 27.8, [place] % (Auto) 9.0, Eos % (Auto) 1.9, Baso % (Auto) 0.4, Absolute Neuts (auto) 4.1, Absolute Lymphs (auto) 1.91, Nucleated RBC % 0 05/14/19 16:18: Sodium 141, Potassium 4.3, Chloride 110 H, Carbon Dioxide 26.0, Anion Gap 5, BUN 16, Creatinine 1.02, Estim Creat Clear Calc 83.82, Est GFR (MDRD) Af Amer 99, Est GFR (MDRD) Non-Af 82, BUN/Creatinine Ratio 15.7, Glucose 97, Calcium 8.8, Total Bilirubin 0.40, AST 104 H, ALT 116 H, Alkaline Phosphatase 72, Total Protein 6.6, Albumin 3.4, Globulin 3.2, Albumin/Globulin Ratio 1.1, Lipase 190 05/14/19 16:18: Ethyl Alcohol 217.0 05/14/19 17:00: Urine Color Yellow, Urine Clarity Clear, Urine pH 5.0, Ur Specific [place] 1.015, Urine Protein 15 H, Urine Glucose (UA) Normal, Urine Ketones Negative, Urine Occult Blood Negative, Urine Nitrite Negative, Urine Bilirubin Negative, Urine Urobilinogen Normal, Ur Leukocyte Esterase Negative, Urine RBC 0 SEEN, Urine WBC 0 SEEN, Ur Squamous Epith Cells 0 SEEN, Urine Bacteria 0 SEEN, Urine Mucus 0 SEEN 05/14/19 17:00: Urine Opiates Screen NEGATIVE, Urine Methadone Screen NEGATIVE, Ur Barbiturates Screen NEGATIVE, Ur Phencyclidine Scrn NEGATIVE, Ur Amphetamines Screen NEGATIVE, U Methamphetamin-MDMA NEGATIVE, U Benzodiazepines Scrn POSITIVE H, Urine Cocaine Screen NEGATIVE, U Cannabinoids Screen POSITIVE H, Ur Drug Screen Comment Current Medications Chlordiazepoxide (Librium) 50 mg PO Q6H [facility]; Taper Stop: 05/17/19 22:59 Last Admin: 05/15/19 14:34 Dose: 50 mg Documented by: Dicyclomine HCl (Bentyl) 20 mg PO Q6H PRN PRN PRN Reason: abdominal discomfort Last Admin: 05/14/19 22:31 Dose: 20 mg Documented by: Folic Acid (Folic Acid) 1 mg PO DAILYCM [facility] Stop: 05/17/19 08:01 Last Admin: 05/15/19 08:08 Dose: 1 mg Documented by: Hydroxyzine Pamoate (Vistaril Pamoate Capsule) 50 mg PO Q6H PRN PRN PRN Reason: Mild Anxiety (score 1/3) Lorazepam (Ativan) 1 mg IV Q2H PRN PRN PRN Reason: Severe Anxiety Lorazepam (Ativan) 2 mg IV X1 PRN PRN Reason: Seizure Methocarbamol (Methocarbamol) 750 mg PO Q6H PRN PRN PRN Reason: Muscle Aches [facility] Last Admin: 05/15/19 08:08 Dose: 1 tablet Documented by: Sodium Chloride () 10 - 40 ml IV UD PRN PRN Reason: SALINE FLUSH Thiamine HCl ([facility]itamin B1) [facility] Stop: 05/17/19 08:01 Last Admin: 05/15/19 08:08 Dose: 100 mg Documented by: STROKE Vital Signs/Narrative: Vital Signs Temp Pulse Resp BP Pulse Ox 05/15/19 14:32 99.2 F H 92 16 135/82 H 94 Medical Necessity - Tobacco Use Smoking Status: Current every day smoker Tobacco Use: Cigarettes, Vapor Assessment/Plan All Active Problems Alcohol withdrawal (Acute) Alcohol dependence (Acute) Alcohol abuse (Acute) 1. Alcoholism with withdrawal - continue librium, ativan, CIWA protocol, folate, thiamine, multivitamin. known abnormal LFTs. follow up as o/p. 2. Tobacco/pot abuse - nicotine patch 3. HTN - resume ARB, BP trending up. 4. Depression - fluoxetine DVT ppx: early ambulation [facility] plannin as outpatient This patient was seen by John Chun PA-C under the supervision of Dr. Reyes. <Marion Reyes - Last Filed: 05/15/19 17:05> Vitals/I&O's: Vital Signs Temp Pulse Resp BP Pulse Ox 99.2 F H 92 16 135/82 H 94 05/15/19 14:32 05/15/19 14:32 05/15/19 14:32 05/15/19 14:32 05/15/19 14:32 Oxygen Delivery Method Room Air Weight: 84.141 kg Body Mass Index (BMI) 26.6 Intake and Output for Last 24 Hours 0205/14/19 05/15/19 23:59 23:59 23:59 Intake Total 1000 / 1100 400 / 400 Balance 1000 / 1100 400 / 400 Laboratory Results 05/14/19 16:18: Ethyl Alcohol 217.0 05/14/19 17:00: Urine Color Yellow, Urine Clarity Clear, Urine pH 5.0, Ur Specific [place] 1.015, Urine Protein 15 H, Urine Glucose (UA) Normal, Urine Ketones Negative, Urine Occult Blood Negative, Urine Nitrite Negative, Urine Bilirubin Negative, Urine Urobilinogen Normal, Ur Leukocyte Esterase Negative, Urine RBC 0 SEEN, Urine WBC 0 SEEN, Ur Squamous Epith Cells 0 SEEN, Urine Bacteria 0 SEEN, Urine Mucus 0 SEEN 05/14/19 17:00: Urine Opiates Screen NEGATIVE, Urine Methadone Screen NEGATIVE, Ur Barbiturates Screen NEGATIVE, Ur Phencyclidine Scrn NEGATIVE, Ur Amphetamines Screen NEGATIVE, U Methamphetamin-MDMA NEGATIVE, U Benzodiazepines Scrn POSITIVE H, Urine Cocaine Screen NEGATIVE, U Cannabinoids Screen POSITIVE H, Ur Drug Screen Comment Current Medications Chlordiazepoxide (Librium) 50 mg PO Q8H [facility]; Taper Stop: 05/17/19 22:59 Last Admin: 05/15/19 14:34 Dose: 50 mg Documented by: Dicyclomine HCl (Bentyl) 20 mg PO Q6H PRN PRN PRN Reason: abdominal discomfort Last Admin: 05/14/19 22:31 Dose: 20 mg Documented by: Fluoxetine HCl (Prozac) 40 mg PO DAILY [facility] Folic Acid (Folic Acid) [facility] Stop: 05/17/19 08:01 Last Admin: 05/15/19 08:08 Dose: 1 mg Documented by: Hydroxyzine Pamoate (Vistaril Pamoate Capsule) 50 mg PO Q6H PRN PRN PRN Reason: Mild Anxiety (score 1/3) Lorazepam (Ativan) 1 mg IV Q2H PRN PRN PRN Reason: Severe Anxiety Lorazepam (Ativan) 2 mg IV X1 PRN PRN Reason: Seizure Losartan Potassium (Cozaar) 50 mg PO DAILY [facility] Methocarbamol (Methocarbamol) 750 mg PO Q6H PRN PRN PRN Reason: Muscle Aches [facility]amin) [facility] Last Admin: 05/15/19 08:08 Dose: 1 tablet Documented by: Nicotine (Nicoderm Cq (Pbkc)) 21 mg TRANSDERM. DAILY [facility] Sodium Chloride () 10 - 40 ml IV UD PRN PRN Reason: SALINE FLUSH Thiamine HCl (Vitamin B1) 100 mg PO DAILYCM [facility] Stop: 05/17/19 08:01 Last Admin: 05/15/19 08:08 Dose: 100 mg Documented by: STROKE Vital Signs/Narrative: Vital Signs Temp Pulse Resp BP Pulse Ox 05/15/19 14:32 99.2 F H 92 16 135/82 H 94 Assessment/Plan This patient was seen in conjunction with EMMETT Howell. I have independently interviewed and examined the patient and reviewed pertinent historical, laboratory, and other data. Please refer to EMMETT Howell note for his patient's presentation, findings, and recommendations. I have reviewed and his note and concur with his documentation Patient was seen and examined. He feels improved. Outpatient rehab [facility] program will re-evaluate him today Physical Exam: Gen: Comfortable, not pale, not jaundiced CVS:HS I +II, regular, no murmurs RESP: CTA GI: BS present and normal, soft, nontender, no palpable organs EXT:No edema ASSESSMENT: 1. Acute alcohol withdrawal 2. Polysubstance use disorder - nicotine and marijuana 3. Hypertension 4. Depression Plan: Continue on alcohol withdrawal protocol Advised to quit use of illicit drugs Code Visit Inpatient E&M: 14100 Subs Hosp L2
--- NOTE | 2019-05-15 15:46 | CASEMGMT ---
Social Work Note Charge Nurse and SW updated by [facility] staff that pt is not interested in residential or peer support transport through [facility] and plans on just going to [facility] at discharge. Plan: [facility] Denisha Gonzalez PEDIATRIC ONCOLOGIST, HIM DIRECTOR
--- NOTE | 2019-05-15 16:27 | CHAPLAIN ---
Type of Pastoral Visit _x__ Initial Visit ___ Follow-up Visit ___ On-call Visit ___ General Patient Visit ___ Spiritual Assessment ___ Family Conference ___ Bereavement ___ Rapid Response ___ Code Blue ___ Other (describe below) Pastoral Care Referral From _x__ Patient ___ Family ___ Nurse ___ Physician ___ Thermoscrew Operator ___ System Architect ___ Other (describe below) Sacrament/Intervention _x__ Active listening ___ Anointing ___ Advent ___ Bereavement ___ Communion _x__ Amanda exploration ___ _x__ Life review _x__ Prayer ___ Reconciliation ___ Sacrament of Sick _x__ Supportive presence ___ Wedding ___ Other (describe below) Pastoral Comments patient has been seen before by this pie dough roller in previous admission; pt has requested support in his attempt at overcoming addiction; pt is asking for help; pt has met with 180 counselor for some group meeting and for counseling; pt is open to spiritual care and amanda based groups
[2019-05-16 06:22] VITALS: BP 136/88; PULSE 76; RESP 18; TEMP 36.4; O2SAT 98
[2019-05-16 06:24] VITALS: BP 136/88; PULSE 76; RESP 18; TEMP 36.4; O2SAT 98
[2019-05-16] MEDS: chlordiazePOXIDE 25 MG Capsule 50 MG PO (06:26)
[2019-05-16] MEDS: hydrOXYzine PAM 25 MG Capsule 50 MG PO (06:28)
[2019-05-16 06:49] LABS: ALB/GLOB Ratio 0.9 RATIO (0.9-2.4); AST(SGOT) 44 U/L (15-37); Alanine Aminotransfer ALT/SGPT 79 U/L (16-61); Albumin, Serum 3.1 g/dL (3.2-5.0); Alkaline Phosphatase 69 U/L (45-117); Anion Gap 4 (5-15); BUN 20 mg/dL (7-18); BUN/Creat Ratio 18.7 RATIO (10-20); Calcium,Total 8.9 mg/dL (8.5-10.1); Chloride 110 mmol/L (98-107); Creatinine, Serum 1.07 mg/dL (0.70-1.30); EST Glomerular Filtration Rate 78 mL/min (>60); Est Glom Filt Rate - Afr Amer 94 mL/min (>60); Estimated Creatinine Clearance 85.28 ml/min; Globulin 3.5 g/dL (2.2-4.2); Glucose 103 mg/dL (74-106); Potassium 4.2 mmol/L (3.5-5.1); Protein, Total 6.6 g/dL (6.4-8.2); Sodium Level 139 mmol/L (136-145)
[2019-05-16 09:57] VITALS: BP 139/91; PULSE 81; RESP 16; TEMP 36.4; O2SAT 97
[2019-05-16] MEDS: Losartan Potassium 50 MG Tablet PO (09:59)
[2019-05-16] MEDS: FLUoxetine 20 MG Capsule 40 MG PO (09:59)
[2019-05-16] MEDS: Multivitamins,Therapeutic Tablet 1 TABLET PO (09:59)
[2019-05-16] MEDS: Folic Acid 1 MG Tablet PO (09:59)
[2019-05-16] MEDS: Thiamine Hydrochloride 100 MG Tablet PO (09:59)
--- NOTE | 2019-05-16 11:10 | CASEMGMT ---
Social Work Note Pt is requesting discharge today. SONDRA placed call to Whitney at [facility]. Whitney states she assessed pt yesterday, pt was adamant he didn't want residential treatment or peer support. Whitney states pt's assessment is complete and informed pt that he would just need to call [facility] to arrange an appointment with a counselor. Whitney states that all of [facility] staff is at an agency training today so no one is available to see pt today. SONDRA met with pt. SONDRA updated pt that [facility] is not available today and reminded pt that Whitney had informed him that he needed to call [facility] to arrange an appointment with a counselor. SONDRA provided pt with [facility] Main number, 24 hour treatment navigator number and Crisis number. Pt states that he would like to discharge today regardless and will follow up with AA meetings. SONDRA updated physician. SONDRA provided RN with AA meetings times and days and RN provided copy to pt. Plan: Pt to follow up with [facility] and AA meetings at discharge. Denisha Gonzalez AGILE SCRUM COACH, PRINT AND PATTERN DESIGNER
--- NOTE | 2019-05-16 11:14 | DCINST_ITS ---
- Discharge Diagnoses Current Active Problems: Current Active and Chronic Problems Marijuana abuse (Chronic) Alcohol abuse (Acute) You will use the following diet at home:: Cardiac, Other - no alcohol at all. Your food should be the consistency of: Regular Your liquids should be the consistency of: Regular/Thin Discharge Activity: Return to Normal Activity Additional Instructions: You should begin attending AA meetings today or tomorrow. Allergies/Adverse Reactions: Allergies No Known Allergies Allergy (Verified 05/14/19 15:48) Medications to take at Discharge Fluoxetine HCl 40 mg PO DAILY 05/14/19 Irbesartan [Avapro] 150 mg PO DAILY 05/14/19 Nicotine [Nicoderm Cq] 21 mg TP DAILY 05/14/19 Primary Care Physician: Johanne Eden MD [Primary Care Provider] - Please follow up with your Primary Care Physician in: 1-2 weeks Test Results: Test results from this visit will be discussed in further detail at your follow- up appointment, if applicable. Please Follow Up With: 180 program When: Today Proposed Discharge Date: 05/16/19
[2019-05-16 12:38] VITALS: BP 135/90; PULSE 88; RESP 18; O2SAT 98
--- NOTE | 2019-05-16 12:41 | NURSING ---
This RN provided at list of AA meetings in [place] and surrounding areas with a daily breakdown with times. I highlighted all meetings occurring today and patient verbalizes understanding and states he will walk to them.
--- NOTE | 2019-05-16 13:49 | PCM.DC.SUM ---
<John Chun - Last Filed: 05/16/19 13:49> Discharge Date and Diagnosis Date of Admission: 05/14/19 Date of Discharge: 05/16/19 - Primary Discharge Diagnosis Alcoholism with acute withdrawal Nicotine abuse Marijuana abuse HTN despression - Secondary Discharge Diagnosis Chronic Problems COPD (chronic obstructive pulmonary disease) (Chronic) HTN (hypertension) (Chronic) Marijuana abuse (Chronic) Depression (Chronic) Nicotine abuse (Chronic) Hospital Course and Treatment Operations: None Procedures: None Summary of Care Provided: Hospital Course: The patient is a 48 year old M with past medical history of alcoholism, hypertension, nicotine abuse, marijuana abuse, who was recently admitted to the hospital for detox. He was discharged from the hospital 2 days prior to this presentation where he was treated for alcohol withdrawal and detoxed. He went home and drank that day. He stated that he did not have an appointment to get seen by anyone to help him that day so he felt like he could drink some beer and that he would be okay. The following day he blacked out and was found by police intoxicated and with marijuana. He was brought to the emergency room and he was admitted for alcohol detox as he expressed desire to get sober. He was admitted to the medical surgical floor and started on Librium taper. He responded well to the therapy and a day prior to his planned discharge he reported that he had no symptoms whatsoever, had a CIWA score of 0, and felt strongly that he should be discharged from the hospital. Unfortunately he is unable to get into the [facility] program until Sunday. He felt that he could go to daily AA meetings and that would help him stay sober at least until he was able to get into [facility]. We did offer him inpatient services with 180 however he declined this stating that he had tried in the past and it did not work out for him. We provided him with a list of local AA meetings tonight that he will be able to attend. He was discharged home in stable condition. He will need to follow-up with his PCP in 1 to 2 weeks. This patient was seen by John Chun PA-C under the supervision of Doctor Reyes. [] - Physical Exam Vitals/I&O's: Vital Signs Temp Pulse Resp BP Pulse Ox 97.6 F L 88 18 135/90 H 98 05/16/19 09:57 05/16/19 12:38 05/16/19 12:38 05/16/19 12:38 05/16/19 12:38 Oxygen Delivery Method Room Air Weight: 185 lb 8 oz Body Mass Index (BMI) 26.6 Intake and Output for Last 24 Hours 05/14/19 05/15/19 05/16/19 23:59 23:59 23:59 Intake Total 1000 / 1100 400 / 400 700 / 700 Balance 1000 / 1100 400 / 400 700 / 700 General: Alert, Oriented x3, Cooperative HEENT: Atraumatic, PERRLA, EOMI, Normocephalic Neck: Supple, No JVD, Negative Carotid Bruits Lungs: Clear to auscultation, Normal air movement Cardiovascular: Regular rate, No murmurs Abdomen: Bowel Sounds Present, Soft, Non Tender Extremities: No edema, Capillary Refill Less than 3 Seconds Skin: No rashes, No breakdown Musculoskeletal: No Tenderness to Palpation of Joints or Extremities Neurological: Cranial nerves II-XII grossly intact Psych/Mental Status: Normal Affect, Appropriate, Alert and oriented to time, place, person, mood and affect Laboratory Results 05/16/19 05:54: Sodium 139, Potassium 4.2, Chloride 110 H, Carbon Dioxide 25.0, Anion Gap 4 L, BUN 20 H, Creatinine 1.07, Estim Creat Clear Calc 85.28, Est GFR (MDRD) Af Amer 94, Est GFR (MDRD) Non-Af 78, BUN/Creatinine Ratio 18.7, Glucose 103, Calcium 8.9, Total Bilirubin 0.40, AST 44 H, ALT 79 H, Alkaline Phosphatase 69, Total Protein 6.6, Albumin 3.1 L, Globulin 3.5, Albumin/Globulin Ratio 0.9 Discharge Diet: Low fat/ Low Cholesterol, 2000 mg Sodium Diet Discharge Activity: Return to Normal Activity Home Medications: Medications to take at Discharge Fluoxetine HCl 40 mg PO DAILY 05/14/19 Irbesartan [Avapro] 150 mg PO DAILY 05/14/19 Nicotine [Nicoderm Cq] 21 mg TP DAILY 05/14/19 Primary Care Physician: Johanne Eden MD [Primary Care Provider] - Please follow up with your Primary Care Physician in: 1-2 weeks Please Follow Up With: 180 program When: Sunday Additional Instructions: AA meeting tonight Disposition: Home Minutes spent on discharge:: 35 Patient Condition:: Stable Medical Necessity - Tobacco Use Smoking Status: Current every day smoker Tobacco Use: Cigarettes, Vapor Meaningful Use Info Meaningful Use Diagnoses (Choose all that apply): None applicable <Marion Reyes - Last Filed: 05/18/19 10:13> Discharge Date and Diagnosis - Secondary Discharge Diagnosis Chronic Problems COPD (chronic obstructive pulmonary disease) (Chronic) HTN (hypertension) (Chronic) Marijuana abuse (Chronic) Depression (Chronic) Nicotine abuse (Chronic) Hospital Course and Treatment Summary of Care Provided: This patient was seen in conjunction with EMMETT Howell. I have independently interviewed and examined the patient and reviewed pertinent historical, laboratory, and other data. Please refer to EMMETT Howell note for his patient's presentation, findings, and recommendations. I have reviewed and his note and concur with his documentation. 48-year-old male with past medical history of alcoholism, nicotine dependence, marijuana abuse, hypertension who was recently admitted for detox. He was discharged from the hospital, went home and drank, could not follow-up with 180 in the outpatient. He was brought to the emergency room again by the police after he was found intoxicated and with marijuana. Patient was admitted to the [facility] floor for alcohol detox. He was started on a Librium taper. His CIWA score remains 0. Patient was discharged so that he can make it to 180 in the outpatient. Of note, one-eighty cannot see him until Sunday. Patient felt that he could go to AA meeting. He was asked to stay 1 more day so that you have only 1 day at home. He will need to follow-up with his PCP within 2 weeks. On the day of discharge, patient was seen and examined. Denied any new complaint. Physical Exam: Gen: Comfortable, not pale, not jaundiced CVS:HS I +II, regular, no murmurs RESP: CTA GI: BS present and normal, soft, nontender, no palpable organs EXT:No edema - Physical Exam Vitals/I&O's: Vital Signs Temp Pulse Resp BP Pulse Ox 97.6 F L 88 18 135/90 H 98 05/16/19 09:57 05/16/19 12:38 05/16/19 12:38 05/16/19 12:38 05/16/19 12:38 Oxygen Delivery Method Room Air Weight: 84.141 kg Body Mass Index (BMI) 26.6 Intake and Output for Last 24 Hours 05/16/19 05/17/19 05/18/19 23:59 23:59 23:59 Intake Total 700 / 700 Balance 700 / 700 Code Visit Inpatient E&M: 06550 Disch Hosp
== END 2019-05-16 12:55 | disposition home or self-care (01) | DRG 897 ==
LOC: ED 18:48 → MS3 05-15 07:11
PROVIDERS: Admitting Provider Family Medicine; Emergency Provider Emergency Medicine; PCP Internal Medicine; Visit Provider Internal Medicine
DX: F10.239 Alcohol dependence with withdrawal, unspecified (principal); F12.10 Cannabis abuse, uncomplicated; F10.229 Alcohol dependence with intoxication, unspecified; Y90.7 Blood alcohol level of 200-239 mg/100 ml; F32.9 Major depressive disorder, single episode, unspecified; I10 Essential (primary) hypertension; J44.9 Chronic obstructive pulmonary disease, unspecified; F17.210 Nicotine dependence, cigarettes, uncomplicated
CPT/HCPCS: 36415; 80053; 80307; 80320; 81001; 83690; 85025; 99285; J7030; G0480

== ENCOUNTER 2019-11-26 10:06 | Inpatient (IN) | payer MEDICARE, MEDICAID, SELFPAY ==
[2019-05-14 19:46] VITALS: BMI 26.6
[2019-11-26] VITALS (7 sets, daily range): BP systolic 134–143; BP diastolic 83–98; PULSE 66–99; RESP 14–18; TEMP 36.4–36.7; O2SAT 94–99; BMI 27.2; BMI 27.1; BMI 27.3
--- NOTE | 2019-11-26 10:18 | ED.DCSUM_ITS ---
History of Present Illness Chief Complaint: Substance Abuse Informant: Patient Onset: Month(s) Context: Gradual Onset Timing: Continuous Current Severity: Moderate Maximum Severity: Moderate Narrative: The patient is a 49-year-old male with medical history significant for alcohol abuse and dependence that presents to the emergency department from [facility] requesting alcohol detox. Patient states his been through detox before, last was about 7 months ago. He states he drinks about 6 24 ounce beers a day. He has had 2 prior DUIs. He denies being suicidal or homicidal. He states he was referred from the outpatient center for inpatient detox. Prior similar symptoms: Yes Recent Illness/Hospitalization: No Past Medical History - Allergies and Home Meds Allergies/Adverse Reactions: Allergies No Known Allergies Allergy (Verified 11/26/19 10:09) Primary Care Physician: Johanne Eden MD [Primary Care Provider] - Prior records reviewed: Yes Past Medical History: - - COPD, alcohol abuse Surgical History: noncontributory, tonsillectomy, - - Head and right eye surgery following traumatic injury. Smoking Status: Current every day smoker - Family History Maternal Family History: Reports: - - Denies known maternal medical history including cardiac history. Paternal Family History: Reports: - - Denies known paternal medical history including cardiac history. Review of Systems General: Denies: Chills, Fever, Sweats Eyes: Denies: Visual changes - bilaterally, Diplopia ENT: Denies: Rhinorrhea, Sore throat Cardiovascular: Denies: Chest pain, Palpitations Respiratory: Denies: Dyspnea, Cough, Dyspnea on exertion Gastrointestinal: Denies: Abdominal pain, Nausea, Vomiting, Diarrhea, Melena, Hematochezia Genitourinary: Denies: Dysuria, Hematuria, Frequency Musculoskeletal: Denies: Back pain, Extremity Pain Skin: Denies: Rash, Wounds Neurological: Denies: Headache, Weakness, Numbness Physical Exam Vital Signs/Narrative: Vital Signs Temp Pulse Resp BP Pulse Ox 11/26/19 10:07 97.6 F L 99 18 141/91 H 99 Inital Vital Signs reviewed: Yes General: Well nourished, Well developed, No Acute Distress Head: Normocephalic, Atraumatic Eyes: Perrl, EOMI ENT: Moist mucous membranes, No rhinorrhea Neck: Supple, Nontender Cardiovascular: Regular rate, Regular rhythm, No murmurs Respiratory: No distress, CTA bilaterally, Chest nontender Abdomen: Soft, Nontender, Nondistended, Normal bowel sounds Back: Nontender, Normal Inspection Extremities: Nontender, No edema Skin: Normal color, No rash Neurological: Alert, Oriented x3, Cranial nerves II-XII grossly intact, Normal S trength, Normal Sensation Psychological: Normal affect, Normal Mood Diagnostic/Tx/Re-eval Abnormal Lab Results 11/26/19 11/26/19 11/26/19 10:30 Unknown Unknown WBC 5.9 RBC 4.33 L Hgb 14.6 Hct 44.1 MCV 101.8 H MCH 33.7 H MCHC 33.1 RDW Std Deviation 44.5 H RDW Coeff of Kingsley 11.8 Plt Count 271 MPV 10.4 Immature Gran % (Auto) 0.200 Neut % (Auto) 53.2 Lymph % (Auto) 30.2 Benson % (Auto) 12.3 H Eos % (Auto) 3.4 Baso % (Auto) 0.7 Absolute Neuts (auto) 3.1 Absolute Lymphs (auto) 1.77 Nucleated RBC % 0 Sodium Potassium Chloride Carbon Dioxide Anion Gap BUN Creatinine Estim Creat Clear Calc Est GFR (MDRD) Af Amer Est GFR (MDRD) Non-Af BUN/Creatinine Ratio Glucose Calcium Total Bilirubin AST ALT Alkaline Phosphatase Total Protein Albumin Globulin Albumin/Globulin Ratio Urine Opiates Screen NEGATIVE Urine Methadone Screen NEGATIVE Ur Barbiturates Screen NEGATIVE Ur Phencyclidine Scrn NEGATIVE Ur Amphetamines Screen NEGATIVE U Methamphetamin-MDMA NEGATIVE U Benzodiazepines Scrn NEGATIVE Urine Cocaine Screen NEGATIVE U Cannabinoids Screen NEGATIVE Ur Drug Screen Comment Ethyl Alcohol < 3.0 11/26/19 Unknown WBC RBC Hgb Hct MCV MCH MCHC RDW Std Deviation RDW Coeff of Kingsley Plt Count MPV Immature Gran % (Auto) Neut % (Auto) Lymph % (Auto) Benson % (Auto) Eos % (Auto) Baso % (Auto) Absolute Neuts (auto) Absolute Lymphs (auto) Nucleated RBC % Sodium 137 Potassium 4.3 Chloride 107 Carbon Dioxide 26.0 Anion Gap 4 L BUN 15 Creatinine 1.00 Estim Creat Clear Calc 90.24 Est GFR (MDRD) Af Amer 101 Est GFR (MDRD) Non-Af 84 BUN/Creatinine Ratio 15.0 Glucose 89 Calcium 8.9 Total Bilirubin 0.50 AST 49 H ALT 64 H Alkaline Phosphatase 66 Total Protein 6.7 Albumin 3.7 Globulin 3.0 Albumin/Globulin Ratio 1.2 Urine Opiates Screen Urine Methadone Screen Ur Barbiturates Screen Ur Phencyclidine Scrn Ur Amphetamines Screen U Methamphetamin-MDMA U Benzodiazepines Scrn Urine Cocaine Screen U Cannabinoids Screen Ur Drug Screen Comment Ethyl Alcohol - Medical Decision Making The patient presents requesting alcohol detox. He does have longstanding history of alcohol abuse. Metabolic work-up was pursued and was relatively unremarkable. Patient was discussed with the hospitalist and will be admitted at this time. Impression 1. Alcohol abuse and dependence ED Disposition - Plan for ED Patient: Referrals: Johanne Eden MD [Primary Care Provider] -
--- NOTE | 2019-11-26 10:32 | ED.RN ---
THIS RN DISCUSSED AND READ THE TERMS OF AGREEMENT REGARDING DETOX PROGRAM AT [facility]. PT AGREES AND SIGNS
[2019-11-26 10:33] LABS: Absolute Lymphocyte Count 1.77 X10^3/uL (0.83-4.51); Absolute Neutrophil Count 3.1 X10^3/uL (2.0-7.7); Basophil# 0.04 X10^3/uL; Basophil% 0.7 % (0-1); Eosinophils% 3.4 % (0-5); Hematocrit 44.1 % (40-54); Hemoglobin 14.6 g/dL (13.0-16.5); Lymphocyte # 1.77 X10^3/ul (4.0); Lymphocyte % 30.2 % (19-41); Mean Corp Hgb Conc 33.1 g/dL (32-36); Mean Corpuscular Hgb 33.7 pg (27.0-32.0); Mean Corpuscular Volume 101.8 fL (80-94); Mean Platelet Vol. 10.4 fl (6.2-12.0); Monocyte# 0.72 X10^3/uL; Monocyte% 12.3 % (0-10); NRBC Flagged by Analyzer 0 % (0-5); Neutrophil # 3.12 X10^3/uL (2.7-7.7); Neutrophil % 53.2 % (47-70); Platelet Count 271 K/mm3 (150-450); RBC Distribution Width CV 11.8 % (11.6-14.6); RBC Distribution Width SD 44.5 fl (35.1-43.9); Red Blood Count 4.33 M/mm3 (4.6-6.2); White Blood Count 5.9 K/mm3 (4.4-11.0)
[2019-11-26 10:50] LABS: ALB/GLOB Ratio 1.2 RATIO (0.9-2.4); AST(SGOT) 49 U/L (15-37); Alanine Aminotransfer ALT/SGPT 64 U/L (16-61); Albumin, Serum 3.7 g/dL (3.2-5.0); Alkaline Phosphatase 66 U/L (45-117); Anion Gap 4 (5-15); BUN 15 mg/dL (7-18); Calcium,Total 8.9 mg/dL (8.5-10.1); Chloride 107 mmol/L (98-107); EST Glomerular Filtration Rate 84 mL/min (>60); Est Glom Filt Rate - Afr Amer 101 mL/min (>60); Estimated Creatinine Clearance 90.24 ml/min; Glucose 89 mg/dL (74-106); Potassium 4.3 mmol/L (3.5-5.1); Protein, Total 6.7 g/dL (6.4-8.2); Sodium Level 137 mmol/L (136-145)
[2019-11-26 10:52] LABS: Amphetamine Urine VISTA NEGATIVE (<1000 ng/mL); Barbiturate Urine VISTA NEGATIVE (< 200 ng/mL); Benzodiazepine Urine VISTA NEGATIVE (< 200 ng/mL); Cocaine Urine VISTA NEGATIVE (< 300 ng/mL); Ecstacy Urine VISTA NEGATIVE (< 500 ng/mL); Methadone Urine VISTA NEGATIVE (< 300 ng/mL); PCP Urine VISTA NEGATIVE (< 25 ng/mL); THC Urine VISTA NEGATIVE (< 50 ng/mL); Vista UDS pH Range 6
[2019-11-26 11:00] LABS: Alcohol, Blood (Medical)-Serum < 3.0 mg/dL
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
--- NOTE | 2019-11-26 11:19 | NURSING ---
[facility]OL DEPENDANCE
--- NOTE | 2019-11-26 11:20 | CM.ED ---
SOCIAL WORK Informant: Self Referral Reason for Consult: Substance Abuse Met with patient in room. Introduced role and reason for referral. Patient reports sent in by [facility] for alcohol detox. Patient states discussed plan with [facility] for after detox, patient wanting residential treatment. Informed patient this worker will follow up with [facility] to update on admission. Patient reports already signed and completed agreement for [facility] with nurse. All questions answered. Support and encouragement provided. Call to [facility] Treatment NavigatoruGy to update on patient's admission. Guy reports will update Whitney. Plan: Admit to [facility] Kelly MSW, IRON LAUNDER OPERATOR
[2019-11-26] MEDS: Phenobarbital 32.4 MG Tablet 64.8 MG PO ×3 (13:18→21:06)
[2019-11-27] MEDS: Phenobarbital 32.4 MG Tablet 64.8 MG PO ×6 (01:10→22:32)
[2019-11-27] MEDS: Loperamide 2 MG Capsule PO (01:10)
[2019-11-27 02:00] VITALS: BP 150/86; PULSE 62; RESP 16; TEMP 36.6; O2SAT 96
--- NOTE | 2019-11-27 07:59 | PCM.PROGNOTE ---
Subjective: Chief complaint: Follow-up after admission for acute alcohol withdrawal. Patient seen and examined. No acute events overnight. This morning, he complained of diarrhea, received Imodium. Denied abdominal pain, nausea or vomiting. He has no other acute withdrawal symptoms. His vital signs are stable. - Physical Exam Vitals/I&O's: Vital Signs Temp Pulse Resp BP Pulse Ox 97.9 F 62 16 150/86 H 96 11/27/19 02:00 11/27/19 02:00 11/27/19 02:00 11/27/19 02:00 11/27/19 02:00 Oxygen Delivery Method Room Air Weight: 189 lb 9.561 oz Body Mass Index (BMI) 27.1 Intake and Output for Last 24 Hours 11/25/19 11/26/19 11/27/19 23:59 23:59 23:59 Intake Total 360 / 660 550 / 550 Balance 360 / 660 550 / 550 General: Alert, Oriented x3, Cooperative, No apparent distress HEENT: Atraumatic, PERRLA, EOMI, Normocephalic Oral: Moist Mucosa, No Gingival or Mucosal Lesions/ Ulcerations Neck: Supple, No JVD, Negative Carotid Bruits, Trachea Midline, Thyroid Normal Size and Texture Lungs: Clear to auscultation, Normal air movement, No rhonchi, No wheeze, No rales Cardiovascular: Regular rate, Regular Rhythm, Normal S1, Normal S2, PMI Normal Abdomen: Bowel Sounds Present, Soft, Non Tender, Non-Distended, No Hepato-splenomegaly Extremities: No clubbing, No cyanosis, No edema Skin: No rashes, No breakdown Lymphatic: No Cervical, Supraclavicular, or Inguinal Adenopathy Neurological: Cranial nerves II-XII grossly intact, Neuro grossly intact Psych/Mental Status: Normal Affect, Appropriate, Alert and oriented to time, place, person, mood and affect Laboratory Results 11/26/19 10:30: Urine Opiates Screen NEGATIVE, Urine Methadone Screen NEGATIVE, Ur Barbiturates Screen NEGATIVE, Ur Phencyclidine Scrn NEGATIVE, Ur Amphetamines Screen NEGATIVE, U Methamphetamin-MDMA NEGATIVE, U Benzodiazepines Scrn NEGATIVE, Urine Cocaine Screen NEGATIVE, U Cannabinoids Screen NEGATIVE, Ur Drug Screen Comment 11/26/19 : WBC 5.9, RBC 4.33 L, Hgb 14.6, Hct 44.1, MCV 101.8 H, MCH 33.7 H, MCHC 33.1, RDW Std Deviation 44.5 H, RDW Coeff of Kingsley 11.8, Plt Count 271, MPV 10.4, Immature Gran % (Auto) 0.200, Neut % (Auto) 53.2, Lymph % (Auto) 30.2, Phillips % (Auto) 12.3 H, Eos % (Auto) 3.4, Baso % (Auto) 0.7, Absolute Neuts (auto) 3.1, Absolute Lymphs (auto) 1.77, Nucleated RBC % 0 11/26/19 : Ethyl Alcohol < 3.0 11/26/19 : Sodium 137, Potassium 4.3, Chloride 107, Carbon Dioxide 26.0, Anion Gap 4 L, BUN 15, Creatinine 1.00, Estim Creat Clear Calc 90.24, Est GFR (MDRD) Af Amer 101, Est GFR (MDRD) Non-Af 84, BUN/Creatinine Ratio 15.0, Glucose 89, Calcium 8.9, Total Bilirubin 0.50, AST 49 H, ALT 64 H, Alkaline Phosphatase 66, Total Protein 6.7, Albumin 3.7, Globulin 3.0, Albumin/Globulin Ratio 1.2 Current Medications Acetaminophen (Tylenol) 500 mg PO Q4H PRN PRN PRN Reason: Temp > 100.4 F Al Hydroxide/Mg Hydroxide (Mylanta Ii) 30 ml PO Q6H PRN PRN PRN Reason: dyspesia Albuterol Sulfate (Ventolin Aerosols) 2.5 mg INHALATION Q4H PRN PRN PRN Reason: Shortness of breath, wheezing Dicyclomine HCl (Bentyl) 20 mg PO Q6H PRN PRN PRN Reason: abdominal discomfort Fluoxetine HCl (Prozac) 40 mg PO DAILY [facility] Folic Acid (Folic Acid) 1 mg PO DAILY@0800 [facility] Gabapentin (Neurontin) 300 mg PO Q8H PRN PRN PRN Reason: moderate to severe anxiety Hydroxyzine Pamoate (Vistaril Pamoate Capsule) 50 mg PO Q4H PRN PRN PRN Reason: mild anxiety Loperamide HCl (Imodium) 2 mg PO Q4H PRN PRN PRN Reason: LOOSE STOOLS Last Admin: 11/27/19 01:10 Dose: 2 mg Documented by: Losartan Potassium (Cozaar) 50 mg PO DAILY [facility] Nicotine (Nicoderm Cq (Pbkc)) 21 mg TRANSDERM. DAILY [facility] Last Admin: 11/26/19 13:38 Dose: 21 mg Documented by: Ondansetron HCl (Zofran) 8 mg PO Q8H PRN PRN PRN Reason: NAUSEA Phenobarbital (Phenobarbital) 97.2 mg PO Q4H [facility]; Taper Stop: 11/30/19 20:59 Last Admin: 11/27/19 05:16 Dose: 97.2 mg Documented by: Sodium Chloride () 10 - 40 ml IV UD PRN PRN Reason: SALINE FLUSH Thiamine HCl (Vitamin B1) 100 mg PO DAILYCM [facility] Trazodone HCl (Desyrel) 100 mg PO QHS PRN PRN Reason: INSOMNIA Medical Necessity - Tobacco Use Smoking Status: Current every day smoker Tobacco Use: Cigarettes Assessment/Plan All Active Problems Alcohol withdrawal (Acute) This is a 49 years old male patient presented to the emergency room requesting admission for acute alcohol withdrawal for medical stabilization. #1 acute alcohol withdrawal: He is on phenobarbital taper, folic acid, thiamine, PRN Bentyl, gabapentin, Vistaril, Imodium, Zofran and trazodone. His vital signs are stable. Routine blood work was unremarkable. LFT revealed minimally elevated liver transaminases which is likely due to alcohol drinking. His vital signs are stable. Patient is interested in residential treatment. Plan to continue same treatment, consult [facility] program. #2 hypertension: Blood pressure stable, continue Avapro. #3 COPD: Clinically stable, pulse ox is maintained on room air. He is on albuterol PRN. #4 history of traumatic brain injury: Stable, no acute issues. #5 depression: Stable, continue fluoxetine. #6 tobacco abuse: NicoDerm patch. #7 DVT prophylaxis: Low risk patient, no prophylaxis indicated. This note was generated with [employer] dictation software. It may contain incorrect words, spelling, and punctuation that were not noted in checking the note before signing. Inpatient E&M: 28354 Subs Hosp L2
[2019-11-27 08:00] VITALS: BP 125/87; PULSE 76; RESP 18; TEMP 36.2; O2SAT 98
[2019-11-27] MEDS: Folic Acid 1 MG Tablet PO (08:36)
[2019-11-27] MEDS: Thiamine Hydrochloride 100 MG Tablet PO (08:36)
[2019-11-27] MEDS: Losartan Potassium 50 MG Tablet PO (09:34)
[2019-11-27] MEDS: FLUoxetine 20 MG Capsule 40 MG PO (09:34)
--- NOTE | 2019-11-27 09:53 | CASEMGMT ---
Call from Catrina, pt's CRSC, NANCY and she states that two weeks ago she had discussed IP detox for pt. She states she wanted to get pt hooked up with [facility]. Advised Catrina that pt is part of our [facility] program, which is run by [facility] and they will be seeing pt today, voices understanding. Catrina voice no further questions/concerns/needs at this time. Karen LOPEZ CM
--- NOTE | 2019-11-27 13:28 | ADDICTION ---
This underwriter solicitation director met with patient in his room to complete ASAM, MSE, AUDIT assessments and to process discharge planning. Patient was alert and oriented x4 and participated actively throughout session. Patient is requesting a direct admit into [facility]. This underwriter solicitation director has made referral and will update [facility] staff and patient of approval or denial prior to discharge. He appears appropriate for the 4.0 LOC based on his frequency, duration and amount of alcohol use. This underwriter solicitation director will fax completed assessments to [facility].
[2019-11-27 13:58] VITALS: BP 128/80; PULSE 75; RESP 18; TEMP 36.5; O2SAT 97
[2019-11-27 15:37] VITALS: BP 140/93; PULSE 71; RESP 16; TEMP 36.4; O2SAT 95
[2019-11-27 22:20] VITALS: BP 138/79; PULSE 68; RESP 18; TEMP 36.1; O2SAT 97
[2019-11-28] MEDS: Phenobarbital 32.4 MG Tablet 64.8 MG PO ×3 (00:42→09:01)
[2019-11-28 04:20] VITALS: BP 120/73; PULSE 77; RESP 14; TEMP 37.1; O2SAT 98
[2019-11-28] MEDS: Folic Acid 1 MG Tablet PO (07:57)
[2019-11-28] MEDS: Thiamine Hydrochloride 100 MG Tablet PO (07:57)
--- NOTE | 2019-11-28 08:04 | PCM.DC ---
You will use the following diet at home:: Cardiac Your food should be the consistency of: Regular Discharge Activity: Return to Normal Activity Weight Bearing Status: Full weight bearing Call your doctor if you observe: Fever of 101 or Higher, Shortness of breath, Dizziness, Fainting spells, Chest pain, Increased palpitations (irregular heartbeat), Uncontrolled pain Allergies/Adverse Reactions: Allergies No Known Allergies Allergy (Verified 11/26/19 10:09) Medications to take at Discharge Fluoxetine HCl 40 mg PO DAILY 05/14/19 Irbesartan [Avapro] 150 mg PO DAILY 05/14/19 Folic Acid 1 mg PO DAILY@0800 #30 tab 11/28/19 Thiamine Hydrochloride [Vitamin B1] 100 mg PO DAILYCM #30 tab 11/28/19 The following prescriptions were given: Folic Acid 1 mg PO DAILY@0800 #30 tab Transmission Status: Pending to [facility] [address] Thiamine Hydrochloride [Vitamin B1] 100 mg PO DAILYCM #30 tab Transmission Status: [facility] Primary Care Physician: Johanne Eden MD [Primary Care Provider] - Please follow up with your Primary Care Physician in: 1-2 weeks. Test Results: Test results from this visit will be discussed in further detail at your follow-up appointment, if applicable.
--- NOTE | 2019-11-28 08:56 | CASEMGMT ---
Social Work SW spoke with Sarina at [facility] who states the following treatment plan. [facility] is not able to accept pt to residential program over the weekend. Pt will discharge home today, pt states he has a safe place to stay over the weekend, and pt will followup with [facility] on Sunday at 8am to be admitted to the [facility] residential program. RENETTA Melendez
[2019-11-28 08:59] VITALS: BP 140/77; PULSE 83; RESP 14; TEMP 36.6; O2SAT 100
--- NOTE | 2019-11-28 09:00 | ADDICTION ---
This technical writer met with patient this morning in his room to continue to process discharge planning. Patient reports that he is still interested in Residential treatment and would like to admit into [facility]). [facility] and was informed that the agency is not taking Residential admits this weekend due to the holiday and limited staffing. Patient was given an appointment for December 01 at 8am with Jayesh to continue to coordinate residential admit next week. He refused transportation assistance stating that he has his own transportation. He states that he plans to stay with my 72 year old lady friend until he admits into [facility]. [facility] staff notified of d/c plan.
[2019-11-28] MEDS: FLUoxetine 20 MG Capsule 40 MG PO (09:02)
[2019-11-28] MEDS: Losartan Potassium 50 MG Tablet PO (09:02)
--- NOTE | 2019-11-28 11:31 | DS.PCM_ITS ---
Discharge Date and Diagnosis Date of Admission: 11/26/19 Date of Discharge: 11/28/19 - Primary Discharge Diagnosis Acute Problems: Acute alcohol withdrawal. - Secondary Discharge Diagnosis Chronic Problems: Chronic Problems COPD (chronic obstructive pulmonary disease) (Chronic) HTN (hypertension) (Chronic) Marijuana abuse (Chronic) Depression (Chronic) Nicotine abuse (Chronic) Hospital Course and Treatment Operations: None Procedures: None Summary of Care Provided: Patient seen and examined on the day of discharge and appeared to be stable to be discharged home and then he will go into inpatient residential treatment at [address] [place] [address]. He denied any symptoms, was able to sleep okay last night. His vital signs are stable. The patient is a 49 year old M presented to the emergency room requesting admission for acute alcohol withdrawal with medical stabilization. Patient has been drinking for long time and he was admitted for medical stabilization 3 times over the last year but he relapses. This time, patient was interested in residential treatment at [address] [place] [address] after medical stabilization. He was admitted to [facility] floor, started on phenobarbital taper, folic acid and thiamine, PRN Bentyl, gabapentin, Vistaril, Imodium, Zofran and trazodone. His routine blood work was unremarkable. LFT revealed slightly elevated liver transaminases. Urine drug screen was negative. Blood alcohol level was less than 3. Patient's vital signs been stable throughout admission. With above- mentioned treatment, patient symptoms improved and he did very well. He was evaluated by [address] [place] [address] staff and he was appropriate for residential treatment. Patient discharged home today on folic acid and thiamine, discharged on his pre vious home medications without any changes, plan to go into residential treatment at [address] [place] [address], recommended follow-up with PCP in 1 to 2 weeks. - Physical Exam Vitals/I&O's: Vital Signs Temp Pulse Resp BP Pulse Ox 97.9 F 83 14 140/77 H 100 11/28/19 08:59 11/28/19 08:59 11/28/19 08:59 11/28/19 08:59 11/28/19 08:59 Oxygen Delivery Method Room Air Weight: 189 lb 9.561 oz Body Mass Index (BMI) 27.1 Intake and Output for Last 24 Hours 11/26/19 11/27/19 11/28/19 23:59 23:59 23:59 Intake Total 360 / 660 1690 / 2330 1240 / 1240 Balance 360 / 660 1690 / 2330 1240 / 1240 General: Alert, Oriented x3, Cooperative, No apparent distress HEENT: Atraumatic, PERRLA, EOMI, Normocephalic Oral: Moist Mucosa, No Gingival or Mucosal Lesions/ Ulcerations Neck: Supple, No JVD, Negative Carotid Bruits, Trachea Midline, Thyroid Normal Size and Texture Lungs: Clear to auscultation, Normal air movement, No rhonchi, No wheeze, No rales Cardiovascular: Regular rate, Regular Rhythm, Normal S1, Normal S2, PMI Normal Abdomen: Bowel Sounds Present, Soft, Non Tender, Non-Distended, No Hepato- splenomegaly Extremities: No clubbing, No cyanosis, No edema Skin: No rashes, No breakdown Lymphatic: No Cervical, Supraclavicular, or Inguinal Adenopathy Neurological: Cranial nerves II-XII grossly intact, Neuro grossly intact Psych/Mental Status: Normal Affect, Appropriate Discharge Activity: Return to Normal Activity Weight Bearing Status: Full weight bearing Call your doctor if you observe: Fever of 101 or Higher, Shortness of breath, Dizziness, Fainting spells, Chest pain, Increased palpitations (irregular heartbeat), Uncontrolled pain Home Medications: Medications to take at Discharge Fluoxetine HCl 40 mg PO DAILY 05/14/19 Irbesartan [Avapro] 150 mg PO DAILY 05/14/19 Folic Acid 1 mg PO DAILY@0800 #30 tab 11/28/19 Thiamine Hydrochloride [Vitamin B1] 100 mg PO DAILYCM #30 tab 11/28/19 Following Prescriptions Were Given to Patient: Folic Acid 1 mg PO DAILY@0800 #30 tab Transmission Status: Received by LEISA ACUNA [facility] Thiamine Hydrochloride [Vitamin B1] 100 mg PO DAILYCM #30 tab Transmission Status: Received by LEISA ACUNA [facility] Primary Care Physician: Johanne Eden MD [Primary Care Provider] - Please follow up with your Primary Care Physician in: 1-2 weeks. Please Follow Up With: Johanne Eden MD Disposition: Home Minutes spent on discharge:: 27 Patient Condition:: Stable Medical Necessity - Tobacco Use Smoking Status: Current every day smoker Tobacco Use: Cigarettes Meaningful Use Info Meaningful Use Diagnoses (Choose all that apply): None applicable Inpatient E&M: [id number] [facility]
== END 2019-11-28 09:55 | disposition home or self-care (01) | DRG 897 ==
LOC: ED 10:37 → PCU 11:31
PROVIDERS: Admitting Provider Hospitalist; Emergency Provider Emergency Medicine; PCP Internal Medicine; Visit Provider Hospitalist
DX: F10.230 Alcohol dependence with withdrawal, uncomplicated (principal); Y90.9 Presence of alcohol in blood, level not specified; F12.10 Cannabis abuse, uncomplicated; I10 Essential (primary) hypertension; J44.9 Chronic obstructive pulmonary disease, unspecified; F32.9 Major depressive disorder, single episode, unspecified; F17.210 Nicotine dependence, cigarettes, uncomplicated; Z79.899 Other long term (current) drug therapy; Z87.820 Personal history of traumatic brain injury
CPT/HCPCS: 80053; 80307; 80320; 85025; 99285; 99406; A4216; G0480

== ENCOUNTER 2019-12-17 15:17 | Emergency (ER) | payer MEDICARE, MEDICAID, SELFPAY ==
[2019-11-26 12:10] VITALS: BMI 27.1
[2019-12-17 15:19] VITALS: BP 122/71; PULSE 124; RESP 18; TEMP 36.7; O2SAT 96; BMI 27.2
--- NOTE | 2019-12-17 15:46 | ED.DCSUM_ITS ---
History of Present Illness Chief Complaint: Edema Narrative: This patient is a 49-year-old male who presents with pain and swelling of his left leg. He has been having pain for a couple of days. He noticed a lot of redness of the ankle and lower leg today. He denies chest pain shortness of breath fevers vomiting. Patient did have a recent hospitalization for alcohol detox. Past Medical History - Allergies and Home Meds Allergies/Adverse Reactions: Allergies No Known Allergies Allergy (Verified 12/17/19 15:21) Primary Care Physician: Johanne Eden MD [Primary Care Provider] - Past Medical History: - - History of alcoholism and alcohol withdrawal. Hypertension. Surgical History: tonsillectomy, - - Head and right eye surgery following trauma tic injury. Smoking Status: Current every day smoker - Family History Paternal Family History: Reports: No pertinent history, - Maternal Family History: Reports: - - Denies known maternal medical history including cardiac history. Review of Systems All systems negative except as indicated General: Denies: Fever Cardiovascular: Denies: Chest pain Respiratory: Denies: Dyspnea Gastrointestinal: Denies: Abdominal pain, Vomiting, Diarrhea Musculoskeletal: Reports: Swelling, Extremity Pain Skin: Denies: Rash Neurological: Denies: Headache Hematologic: Denies: Easy bruising Physical Exam Vital Signs/Narrative: Vital Signs Temp Pulse Resp BP Pulse Ox 12/17/19 15:19 98.0 F 124 H 18 122/71 H 96 Inital Vital Signs reviewed: Yes General: Well nourished Head: Normocephalic Eyes: EOMI ENT: Moist mucous membranes Neck: Supple Cardiovascular: Regular rhythm, Tachycardia Respiratory: No distress Abdomen: Soft, Nontender Extremities: - - Patient does have left lower extremity edema and erythema it is hot to the touch he has large varicosities over the anterior leg which he reports are unchanged. Skin: Normal color Neurological: Alert Diagnostic/Tx/Re-eval - Medical Decision Making Laboratory studies and IV antibiotics were ordered. I was notified by nursing staff that the patient told the nurse that it is not as bad as they think it is and walked out. I did not have an opportunity to speak to the patient about risks and benefits or to have him sign out AGAINST MEDICAL ADVICE as he eloped immediately after speaking to the nurse. ED Disposition - Plan for ED Patient: Disposition: Against Medical Advice Diagnosis: Cellulitis of left leg Referrals: Johanne Eden MD [Primary Care Provider] -
--- NOTE | 2019-12-17 16:05 | ED.RN ---
PT STATES I DON'T WANT ANY OF THIS. IT'S NOT BAD YOU GUYS THINK. PT AMBULATES OUT OF ROOM WITHOUT DIFFICULTY.
== END 2019-12-17 16:06 | disposition left against medical advice (07) ==
PROVIDERS: Emergency Provider Emergency Medicine; PCP Internal Medicine
DX: L03.116 Cellulitis of left lower limb (principal); Z53.21 Procedure and treatment not carried out due to patient leaving prior to being seen by health care provider; I10 Essential (primary) hypertension; Z79.899 Other long term (current) drug therapy; F17.200 Nicotine dependence, unspecified, uncomplicated
CPT/HCPCS: 99281; 99282; J0295

== ENCOUNTER 2019-12-21 15:39 | Emergency (ER) | payer MEDICARE, MEDICAID, SELFPAY ==
[2019-12-21 15:40] VITALS: BP 134/93; PULSE 88; RESP 16; TEMP 36.8; O2SAT 96; BMI 27.6
--- NOTE | 2019-12-21 15:47 | ED.DCSUM_ITS ---
History of Present Illness Informant: Patient, [employer] Occurred: Days - 4 days Mechanism/Context: - - Denies injury Onset: Days - Days Context: Gradual Onset Timing: Continuous Quality of Pain: Throbbing Location: Left leg Current Severity: Moderate Maximum Severity: Moderate Worsened by: Movement and walking Relieved by: Rest Associated Symptoms: Negative for: Parasthesia, Weakness, Loss of Funtion Narrative: 49-year-old male history of alcohol abuse presents to the emergency department with pain in his left leg. He presents by squad. Is been ongoing for several days. He has a history of varicose veins in this leg. He is able to ambulate on his leg. He denies trauma. He denies numbness tingling or weakness. He denies chest pain or shortness of breath. He denies hemoptysis he. He denies recent travel or surgery history of DVT or PE. Denies fevers chills or constitutional symptoms. Tetanus Immunization: Unknown Prior similar symptoms: Yes Recent Illness/Hospitalization: No <Elias Tee - Last Filed: 12/21/19 16:01> <Kelechi Interiano - Last Filed: 12/21/19 16:14> Chief Complaint: Lower Extremity Injury Past Medical History Prior records reviewed: Yes Past Medical History: - - Alcohol abuse Surgical History: tonsillectomy, - - Head and right eye surgery following traumatic injury. Lives: Alone Smoking Status: Current every day smoker Alcohol: Heavy Drugs: None - Family History Paternal Family History: Reports: No pertinent history, - Maternal Family History: Reports: - - Denies known maternal medical history including cardiac history. <Elias Tee - Last Filed: 12/21/19 16:01> <Kelechi Interiano - Last Filed: 12/21/19 16:14> - Allergies and Home Meds Allergies/Adverse Reactions: Allergies No Known Allergies Allergy (Verified 12/21/19 15:44) Primary Care Physician: Johanne Eden MD [Primary Care Provider] - 3-5 Days Review of Systems All systems negative except as indicated General: Denies: Chills, Fever, Sweats Eyes: Denies: Visual changes - bilaterally, Diplopia ENT: Denies: Rhinorrhea, Sore throat Cardiovascular: Denies: Chest pain, Palpitations Respiratory: Denies: Dyspnea, Cough, Dyspnea on exertion Gastrointestinal: Denies: Abdominal pain, Nausea, Vomiting, Diarrhea, Melena, Hematochezia Genitourinary: Denies: Dysuria, Hematuria, Frequency Musculoskeletal: Reports: Swelling, Extremity Pain. Denies: Myalgias, Arthralgias, Neck pain, Back pain Skin: Denies: Rash, Abscess, Abrasions, Wounds Neurological: Denies: Headache, Weakness, Numbness <Elias Tee - Last Filed: 12/21/19 16:01> Physical Exam Vital Signs/Narrative: Vital Signs Temp Pulse Resp BP Pulse Ox 12/21/19 15:40 98.3 F 88 16 134/93 H 96 Inital Vital Signs reviewed: Yes - Extremity Exam Left Tib Fib: - - Patient has varicosities throughout his left lower extremity. It is 2+ edema left lower extremity compared to 1+ edema of the right lower extremity. Patient has normal DP and PT pulse. He has normal capillary refill and sensation all 5 toes. He has normal sensation throughout his left lower extremity. He has no bony tenderness of his foot or ankle, his leg or knee, his thigh or hip. He was ambulatory back from triage. There are no palpable cords or redness or signs of infection. General: Well nourished, Well developed Head: Normocephalic, Atraumatic Eyes: Perrl, EOMI ENT: No Trauma, Moist Mucous Membranes Neck: Nontender, Full ROM Cardiovascular: Regular rate, Regular rhythm, No murmurs Respiratory: No distress, CTA bilaterally, Chest nontender Abdomen: Soft, Nontender, Nondistended, Normal bowel sounds Back: Nontender Skin: Normal color, No rash Neurological: Alert, Oriented x3, Cranial nerves II-XII grossly intact, Normal Strength, Normal Sensation Psychological: Normal affect <Elias Tee - Last Filed: 12/21/19 16:01> Vital Signs/Narrative: Vital Signs Temp Pulse Resp BP Pulse Ox 12/21/19 15:40 98.3 F 88 16 134/93 H 96 <Kelechi Interiano - Last Filed: 12/21/19 16:14> Diagnostic/Tx/Re-eval - Medical Decision Making Patient's exam is consistent with a thrombophlebitis. He has an area over his guzman where he has some pain and swelling with a cord. He has no calf tenderness. He has no significant swelling more proximal to his distal tibia area. There is no evidence of an abscess. He has no signs of compartment syndrome. His pulse is normal. He is ambulatory without any significant pain. Patient was reassured. He was instructed to use warm compresses. He will be given a prescription for ibuprofen. He will be [facility] to the [facility] for follow-up. He was given return precautions. He was advised to rest ice and elevate. He was agreeable with plan of care and all questions were answered. <Elias Tee - Last Filed: 12/21/19 16:01> - Medical Decision Making I supervised the EMMETT and have performed my own pertinent history and physical. Results and treatment plan were discussed. HPI: Patient reports that he has left guzman pain that began 4 days ago and is gradually increased. He denies any trauma. No fall, MVA, or change in activity. He denies any numbness or weakness. No fever, chills, nausea, vomiting, or other constitutional symptoms. He has no history of DVT. He denies calf pain. No chest pain or shortness of breath. PE: Vitals: Stable. Afebrile. General: Well-nourished and well-developed. Head: Normocephalic atraumatic. Neck: Supple, no lymphadenopathy. No JVD. Nontender. Cardiovascular: Regular rate and rhythm. No murmurs. Respiratory: No respiratory distress. Clear to auscultation bilaterally. Abdominal: Soft, nontender, nondistended, normal bowel sounds. No guarding, rebound, or peritoneal signs. Back: Nontender. Extremities: Multiple varicosities to the left leg with 1+ edema. He has no tenderness over his calf. He does have tenderness that is very superficial over some of the distal varicosities anteriorly. There is no erythema warmth to suggest infection. He has no pain over the medial or lateral malleoli. No base over the proximal fibula or base of the fifth metatarsal. He has a 2+ dorsalis pedis pulse normal sensation light touch. Skin: Normal color, no rash. Neurologic: Alert and oriented ?3. Cranial nerves II through XII are intact. Normal strength and sensation. Psych: Normal affect. Emergency Department course: Patient's exam is consistent with superficial thrombophlebitis. He was treated with ibuprofen. Treatment Plan: Patient will be discharged with ibuprofen. Instructed to use warm compresses. [facility] the [facility] in 3 to 5 days for another exam. Return to the emergency department for any worsening symptoms. This note was generated with [employer] dictation software. It may contain incorrect words, spelling, and punctuation that were not noted in review of the chart prior to signing. <Kelechi Interiano - Last Filed: 12/21/19 16:14> ED Disposition <Elias Tee - Last Filed: 12/21/19 16:01> <Kelechi Interiano - Last Filed: 12/21/19 16:14> - Plan for ED Patient: Disposition: Home or Assisted Living Diagnosis: Thrombophlebitis of left leg Instructions: ED Phlebitis Superficial Prescriptions: Ibuprofen 400 mg PO TID PRN #15 tab PRN Reason: Pain Or Fever Transmission Status: Received by LEISA [facility] [facility] Referrals: Johanne Eden MD [Primary Care Provider] - 3-5 Days
[2019-12-21 16:45] VITALS: BP 136/92; PULSE 83; RESP 16
== END 2019-12-21 16:45 | disposition home or self-care (01) ==
LOC: ED 16:06
PROVIDERS: Emergency Provider Physician Assistant Medical; PCP Internal Medicine
DX: I80.3 Phlebitis and thrombophlebitis of lower extremities, unspecified (principal); I83.892 Varicose veins of left lower extremity with other complications; F17.200 Nicotine dependence, unspecified, uncomplicated
CPT/HCPCS: 99283

== ENCOUNTER 2019-12-27 13:33 | Emergency (ER) | payer MEDICARE, MEDICAID, SELFPAY ==
[2019-12-27 13:33] VITALS: BP 150/94; PULSE 111; RESP 16; TEMP 35.7; O2SAT 98; BMI 27.3
--- NOTE | 2019-12-27 13:39 | RAD_ITS ---
STUDY: X-RAY CHEST REASON FOR EXAM: Male, 49 years old. and quot;coughed so hard he threw up and quot; TECHNIQUE: Frontal view of the chest COMPARISON: May 09 2019 FINDINGS: The lungs are clear and expanded. There is no demonstrated pleural abnormality. Normal size heart. Normal mediastinum and anabella. Normal visualized pulmonary arteries. Normal visualized aortic arch and descending thoracic aorta. Normal visualized thoracic spine. Normal visualized ribs, clavicles, and shoulders. There is no demonstrated abnormality of the visualized soft tissue structures of the upper abdomen. RAD/Chest 1 View (Portable) IMPRESSION: Normal x-ray examination of the chest. Electronically Signed: Kei Silva, at 14:43 EDT Tel , Service support ,
--- NOTE | 2019-12-27 13:39 | EKG12_ITS ---
Test Reason : COUGH Blood Pressure : / mmHG Vent. Rate : 105 BPM Atrial Rate : 105 BPM P-R Int : 148 ms QRS Dur : 074 ms QT Int : 336 ms P-R-T Axes : 068 041 048 degrees QTc Int : 444 ms Sinus tachycardia Otherwise normal ECG Confirmed by TOMA GAVIRIA, YEISON ([id number]), editorial intern MATEUSZ HYLTON ([id number]) on 12/31/2019 9:55:54 AM Referred By: SKYLER Confirmed By:YEISON CHUA MD
--- NOTE | 2019-12-27 13:45 | ED.DCSUM_ITS ---
History of Present Illness Informant: Patient Onset: Days Narrative: 49-year-old male with past medical history of COPD, current tobacco use presents with complaints of productive cough x3 days. This morning he coughed so hard vomited. Denies hemoptysis, fevers, chills, chest pain, shortness of breath, abdominal pain, or myalgias. No known sick contacts. He states he was living at [facility] when he got kicked out because he was late to get home. He has nowhere to stay and is requesting to see social work. He is trying to get into a pathway program. States he drinks daily and uses marijuana. Smokes 2 PPD. Denies other drug use. <Carolina Ferrari - Last Filed: 12/27/19 16:46> <Meño Montenegro - Last Filed: 12/27/19 17:03> Chief Complaint: Cough Past Medical History Past Medical History: - - head injury, COPD Surgical History: tonsillectomy, - - Head and right eye surgery following traumatic injury. Smoking Status: Current every day smoker - Family History Paternal Family History: Reports: No pertinent history, - Maternal Family History: Reports: - - Denies known maternal medical history including cardiac history. <Carolina Ferrari - Last Filed: 12/27/19 16:46> <Meño Montenegro - Last Filed: 12/27/19 17:03> - Allergies and Home Meds Allergies/Adverse Reactions: Allergies No Known Allergies Allergy (Verified 12/27/19 13:33) Primary Care Physician: Johanne Eden MD [Primary Care Provider] - Review of Systems General: Denies: Chills, Fever, Sweats Eyes: Denies: Visual changes - bilaterally, Diplopia ENT: Denies: Rhinorrhea, Sore throat Cardiovascular: Denies: Chest pain, Palpitations Respiratory: Reports: Cough, Sputum. Denies: Dyspnea, Dyspnea on exertion, Orthopnea Gastrointestinal: Denies: Abdominal pain, Nausea, Vomiting Skin: Denies: Rash, Wounds Neurological: Denies: Headache, Weakness, Numbness <Carolina Ferrari - Last Filed: 12/27/19 16:46> Physical Exam Vital Signs/Narrative: Vital Signs Temp Pulse Resp BP Pulse Ox 12/27/19 13:33 96.2 F L 111 H 16 150/94 H 98 Inital Vital Signs reviewed: Yes General: Well nourished, Well developed, No Acute Distress Head: Normocephalic, Atraumatic Eyes: Perrl, EOMI ENT: Moist mucous membranes, No rhinorrhea Neck: Supple, Nontender Cardiovascular: Regular rate, Regular rhythm, No murmurs Respiratory: No distress, CTA bilaterally, Chest nontender Abdomen: Soft, Nontender, Nondistended Back: Nontender, Normal Inspection Extremities: Nontender, No edema Skin: Normal color, No rash Neurological: Alert, Oriented x3, Cranial nerves II-XII grossly intact Psychological: Normal affect, Normal Mood <Carolina Ferrari - Last Filed: 12/27/19 16:46> Vital Signs/Narrative: Vital Signs Temp Pulse Resp BP Pulse Ox 12/27/19 16:00 98 18 149/100 H 94 12/27/19 15:01 100 18 137/86 H 95 12/27/19 14:00 106 H 18 141/90 H 96 12/27/19 13:33 96.2 F L 111 H 16 150/94 H 98 <Meño Montenegro - Last Filed: 12/27/19 17:03> Diagnostic/Tx/Re-eval Clinical Impression(s) from Imaging Studies Chest X-Ray 12/27/19 13:39 IMPRESSION: Normal x-ray examination of the chest. Electronically Signed: Kei Shira, at 14:43 EDT Tel , Service support , Laboratory Data 12/27/19 12/27/19 12/27/19 13:57 13:57 13:57 WBC 10.3 RBC 4.27 L Hgb 14.3 Hct 42.9 MCV 100.5 H MCH 33.5 H MCHC 33.3 RDW Std Deviation 42.9 RDW Coeff of Kingsley 11.6 Plt Count 264 MPV 10.0 Immature Gran % (Auto) 0.300 Neut % (Auto) 75.9 H Lymph % (Auto) 14.6 L [place] % (Auto) 7.5 Eos % (Auto) 1.4 Baso % (Auto) 0.3 Absolute Neuts (auto) 7.8 H Absolute Lymphs (auto) 1.50 Nucleated RBC % 0 Sodium 137 Potassium 3.8 Chloride 104 Carbon Dioxide 27.0 Anion Gap 6 BUN 20 H Creatinine 1.05 Estim Creat Clear Calc 85.94 Est GFR (MDRD) Af Amer 96 Est GFR (MDRD) Non-Af 79 BUN/Creatinine Ratio 19.0 Glucose 157 H Lactic Acid 1.0 Calcium 8.8 Total Bilirubin 0.70 AST 37 ALT 42 Alkaline Phosphatase 71 Total Protein 6.8 Albumin 3.5 Globulin 3.3 Albumin/Globulin Ratio 1.1 - Rhythm Strip Rhythm Strip: Sinus Tach Rate: 105 Ectopy: None - Medical Decision Making Patient appears well nontoxic. Vital signs remarkable for tachycardia in the 100s, otherwise within normal limits. O2 sat 99% on room air. Recheck of vitals showed HR under 100. Lungs clear to auscultation. Labs unremarkable. EKG showed sinus tachycardia at a rate of 105 with no ischemic changes. Chest x-ray shows no acute process. COVID-19 test negative. Patient's chronic cough is likely partially due to smoking. We discussed decrease smoking and he is using nicotine replacement products. His living situation was discussed with social work who gave him resources. He states he has somewhere to stay for the weekend. We discussed return precautions including chest pain or shortness of breath and he was discharged home in stable condition. <Carolina Ferrari - Last Filed: 12/27/19 16:46> - Medical Decision Making History and physical was performed. Patient presents because of cough that is nonproductive. He is a smoker. He has been residing at the [facility]. He was prohibited from entering yesterday. He told the physician pharmacy assistant that he missed curfew. He informed me that he drinks heavily and missed curfew. He informed the heel caser that he was drunk and the reason he missed curfew. He was informed that he is not welcome for the next 3 months. He denies fever. He denies loss of taste or smell. He reports mild congestion. Vital signs noted. He is not hypoxic. He is tachycardic. HEENT exam is a mild global 4 possibly mild congestion. Heart lung exam is unremarkable. Lower extremity exam is unremarkable. Because there was concern for placement until it was determined that he is no longer welcome at the [facility] a rapid COVID-19 test was ordered. His work-up is negative including COVID test. He was discharged with appropriate home-going instructions and information regarding places that he could stay at. <Meño Montenegro - Last Filed: 12/27/19 17:03> ED Disposition <Carolina Ferrari - Last Filed: 12/27/19 16:46> <Meño Montenegro - Last Filed: 12/27/19 17:03> - Plan for ED Patient: Disposition: Home or Assisted Living Diagnosis: Cough, Nicotine abuse Instructions: ED Cough Chronic Uncertain Cause Adult Referrals: Johanne Eden MD [Primary Care Provider] -
[2019-12-27 14:00] VITALS: BP 141/90; PULSE 106; RESP 18; O2SAT 96
[2019-12-27 14:04] LABS: Absolute Neutrophil Count 7.8 X10^3/uL (2.0-7.7); Basophil# 0.03 X10^3/uL; Basophil% 0.3 % (0-1); Eosinophil# 0.14 X10^3/uL; Eosinophils% 1.4 % (0-5); Hematocrit 42.9 % (40-54); Hemoglobin 14.3 g/dL (13.0-16.5); Lymphocyte % 14.6 % (19-41); Mean Corp Hgb Conc 33.3 g/dL (32-36); Mean Corpuscular Hgb 33.5 pg (27.0-32.0); Mean Corpuscular Volume 100.5 fL (80-94); Monocyte# 0.77 X10^3/uL; Monocyte% 7.5 % (0-10); NRBC Flagged by Analyzer 0 % (0-5); Neutrophil # 7.81 X10^3/uL (2.7-7.7); Neutrophil % 75.9 % (47-70); Platelet Count 264 K/mm3 (150-450); RBC Distribution Width CV 11.6 % (11.6-14.6); RBC Distribution Width SD 42.9 fl (35.1-43.9); Red Blood Count 4.27 M/mm3 (4.6-6.2); White Blood Count 10.3 K/mm3 (4.4-11.0)
[2019-12-27 14:22] LABS: ALB/GLOB Ratio 1.1 RATIO (0.9-2.4); AST(SGOT) 37 U/L (15-37); Alanine Aminotransfer ALT/SGPT 42 U/L (16-61); Albumin, Serum 3.5 g/dL (3.2-5.0); Alkaline Phosphatase 71 U/L (45-117); Anion Gap 6 (5-15); BUN 20 mg/dL (7-18); Calcium,Total 8.8 mg/dL (8.5-10.1); Chloride 104 mmol/L (98-107); Creatinine, Serum 1.05 mg/dL (0.70-1.30); EST Glomerular Filtration Rate 79 mL/min (>60); Est Glom Filt Rate - Afr Amer 96 mL/min (>60); Estimated Creatinine Clearance 85.94 ml/min; Globulin 3.3 g/dL (2.2-4.2); Glucose 157 mg/dL (74-106); Potassium 3.8 mmol/L (3.5-5.1); Protein, Total 6.8 g/dL (6.4-8.2); Sodium Level 137 mmol/L (136-145)
[2019-12-27 15:01] VITALS: BP 137/86; PULSE 100; RESP 18; O2SAT 95
--- NOTE | 2019-12-27 15:20 | CM.ED ---
SOCIAL WORK Informant: Dr. Montenegro Reason for Consult: Discharge Planning/Resources Chief compliant: Cough, patient reports [facility] Met with patient in room. Introduced role and reason for referral. Patient states missed curfew last evening and is now unable to return to [facility]. Patient reports is completing IOP with [facility] and plans to follow up with them on Sunday as he wishes to get into [facility]. Patient stating has a cat that he needs to find home for before he can be connected with [facility]. Patient with history of alcohol abuse. Discussed options for housing upon discharge-staying with friend or family member until Sunday when patient follows up with [facility]. Patient states don't really think I can do that. Discussed this worker calling to [facility] Treatment Navigator on patient's situation and request for [facility]. Patient in agreement. Call to [facility]. Informed by lab[facility] patient missed curfew last evening and was intoxicated. Patient unable to return to the alf for 3 months. Call to Irish with [facility]. Irish reports patient can come in Sunday to meet with her to discuss needs. Dr. Montenegro and patient updated. Seema Kelly, KAIWHAKAHAERE, BUSINESS SUPPORT ASSISTANT
[2019-12-27 16:00] VITALS: BP 149/100; PULSE 98; RESP 18; O2SAT 94
--- NOTE | 2019-12-27 18:59 | ED.RN ---
LAB CALLED STATING THAT PATIENT IS POSITIVE FOR RHINOVIRUS, DR. VEGA MADE AWARE, NO FURTHER ORDERS OBTAINED. PATIENT MADE AWARE PRIOR TO DISCHARGE THAT HE LIKELY HAD A VIRAL ILLNESS.
== END 2019-12-27 16:42 | disposition home or self-care (01) ==
LOC: ED 14:09
PROVIDERS: Emergency Medicine; Emergency Provider Physician Assistant; PCP Internal Medicine
DX: R05 Cough (principal); J44.9 Chronic obstructive pulmonary disease, unspecified; F10.99 Alcohol use, unspecified with unspecified alcohol-induced disorder; F12.90 Cannabis use, unspecified, uncomplicated; F17.200 Nicotine dependence, unspecified, uncomplicated
CPT/HCPCS: 71045; 80053; 83605; 85025; 87633; 87635; 93005; 99284; A4216; U0003

== ENCOUNTER 2020-01-01 15:54 | Inpatient (IN) | payer MEDICARE, MEDICAID, SELFPAY ==
[2020-01-01 15:55] VITALS: BP 155/102; PULSE 93; RESP 15; TEMP 36.5; O2SAT 98; BMI 27.1
--- NOTE | 2020-01-01 16:28 | ED.DCSUM_ITS ---
History of Present Illness Chief Complaint: Substance Abuse Informant: Patient Narrative: Patient is a 49-year-old male with a history of COPD, previous head injury who presents the emerge department to detox from alcohol. He states he drinks twice a day and he typically drinks around 6-7 beers until he passes out. He was recently seen in the hospital to detox. He was sent home to go to [facility]. He cannot remember whenever he restarted drinking due to his head injury. His last drink was yesterday. He has been running out of money and has been drinking less due to this fact. He does smoke marijuana as well. Denies any other issues with drug abuse. He is currently trying to quit smoking as well. He is wearing a nicotine patch. He has cravings right now but otherwise denies any physical symptoms. He denies any history of seizures due to withdrawal before in the past. Past Medical History - Allergies and Home Meds Allergies/Adverse Reactions: Allergies No Known Allergies Allergy (Verified 01/01/20 15:54) Prior records reviewed: Yes Past Medical History: - - COPD Surgical History: tonsillectomy, - - Head and right eye surgery following traumatic injury. Smoking Status: Current every day smoker Alcohol: Heavy Drugs: Marijuana - Family History Paternal Family History: Reports: No pertinent history, - Maternal Family History: Reports: - - Denies known maternal medical history including cardiac history. Review of Systems All systems negative except as indicated General: Denies: Chills, Fever, Sweats Eyes: Denies: Visual changes - bilaterally, Diplopia ENT: Denies: Rhinorrhea, Sore throat Cardiovascular: Denies: Chest pain, Palpitations Respiratory: Denies: Dyspnea, Cough, Dyspnea on exertion Gastrointestinal: Denies: Abdominal pain, Nausea, Vomiting, Diarrhea Genitourinary: Denies: Dysuria, Hematuria, Frequency Musculoskeletal: Denies: Back pain, Extremity Pain Skin: Denies: Rash, Wounds Neurological: Denies: Headache, Weakness, Numbness Physical Exam Vital Signs/Narrative: Vital Signs Temp Pulse Resp BP Pulse Ox 01/01/20 15:55 97.7 F L 93 15 155/102 H 98 General: Well nourished, Well developed, No Acute Distress Eyes: Perrl, EOMI, - - Strabismus of right eye ENT: Moist mucous membranes, No rhinorrhea Neck: Supple, Nontender Cardiovascular: Regular rate, Regular rhythm, No murmurs Respiratory: No distress, CTA bilaterally, Chest nontender Abdomen: Soft, Nontender, Nondistended, Normal bowel sounds Back: Nontender, Normal Inspection Extremities: Nontender, No edema Skin: Normal color, No rash Neurological: Alert, Oriented x3, Cranial nerves II-XII grossly intact, Normal Strength, Normal Sensation Psychological: Normal affect, Normal Mood Diagnostic/Tx/Re-eval - Medical Decision Making Patient presents to the ED to detox from alcohol. Upon arrival to the emergency department he is in no acute distress. Vital signs within normal limits. He has no complaints. Will check basic lab work. Basic lab work did not reveal any significant acute abnormality. Tox screen is negative. Alcohol level is negative. Will bring him into the hospital for further evaluation and management. He otherwise has been stable throughout ED stay. He understands and is agreeable with this plan. ED Disposition - Plan for ED Patient: Disposition: Acute Care Hospital [facility] Diagnosis: Alcohol abuse
[2020-01-01 16:33] VITALS: PULSE 90; RESP 16; TEMP 36.9; O2SAT 100
[2020-01-01 16:43] LABS: Absolute Lymphocyte Count 2.42 X10^3/uL (0.83-4.51); Absolute Neutrophil Count 3.7 X10^3/uL (2.0-7.7); Basophil# 0.04 X10^3/uL; Basophil% 0.6 % (0-1); Eosinophil# 0.19 X10^3/uL; Eosinophils% 2.7 % (0-5); Hematocrit 42.2 % (40-54); Lymphocyte # 2.42 X10^3/ul (4.0); Lymphocyte % 34.8 % (19-41); Mean Corp Hgb Conc 33.2 g/dL (32-36); Mean Corpuscular Hgb 33.3 pg (27.0-32.0); Mean Corpuscular Volume 100.5 fL (80-94); Mean Platelet Vol. 9.7 fl (6.2-12.0); Monocyte% 8.6 % (0-10); NRBC Flagged by Analyzer 0 % (0-5); Neutrophil # 3.69 X10^3/uL (2.7-7.7); Platelet Count 286 K/mm3 (150-450); RBC Distribution Width CV 11.7 % (11.6-14.6); RBC Distribution Width SD 43.2 fl (35.1-43.9)
[2020-01-01 16:58] LABS: AST(SGOT) 36 U/L (15-37); Alanine Aminotransfer ALT/SGPT 44 U/L (16-61); Albumin, Serum 3.6 g/dL (3.2-5.0); Alkaline Phosphatase 69 U/L (45-117); Anion Gap 4 (5-15); BUN 24 mg/dL (7-18); BUN/Creat Ratio 23.1 RATIO (10-20); Chloride 103 mmol/L (98-107); Creatinine, Serum 1.04 mg/dL (0.70-1.30); EST Glomerular Filtration Rate 80 mL/min (>60); Est Glom Filt Rate - Afr Amer 97 mL/min (>60); Estimated Creatinine Clearance 86.77 ml/min; Globulin 3.5 g/dL (2.2-4.2); Glucose 91 mg/dL (74-106); Protein, Total 7.1 g/dL (6.4-8.2); Sodium Level 136 mmol/L (136-145)
[2020-01-01 17:25] LABS: Alcohol, Blood (Medical)-Serum < 3.0 mg/dL
[2020-01-01 17:49] VITALS: BMI 27.2
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
[2020-01-01 18:07] VITALS: BP 149/91; PULSE 85; RESP 16; TEMP 36.6; O2SAT 99
[2020-01-01 18:28] VITALS: BMI 28.4
[2020-01-01 18:32] VITALS: BP 145/85; PULSE 82; RESP 18; TEMP 36.9; O2SAT 97
[2020-01-01 18:52] LABS: Amphetamine Urine VISTA NEGATIVE (<1000 ng/mL); Barbiturate Urine VISTA NEGATIVE (< 200 ng/mL); Benzodiazepine Urine VISTA NEGATIVE (< 200 ng/mL); Cocaine Urine VISTA NEGATIVE (< 300 ng/mL); Ecstacy Urine VISTA NEGATIVE (< 500 ng/mL); Methadone Urine VISTA NEGATIVE (< 300 ng/mL); PCP Urine VISTA NEGATIVE (< 25 ng/mL); THC Urine VISTA NEGATIVE (< 50 ng/mL); Vista UDS pH Range 6
[2020-01-01] MEDS: Phenobarbital 32.4 MG Tablet PO (20:01)
[2020-01-01 22:00] VITALS: BP 149/103; PULSE 75; RESP 18; TEMP 36.8; O2SAT 97
[2020-01-02] MEDS: Phenobarbital 32.4 MG Tablet PO ×6 (00:04→20:17)
[2020-01-02] MEDS: 0.9% Saline Lock 10 ML Syringe IV (00:04)
[2020-01-02 02:00] VITALS: BP 141/99; PULSE 77; RESP 18; TEMP 36.5; O2SAT 95
[2020-01-02 05:00] VITALS: BP 135/99; PULSE 73; RESP 18; TEMP 36.5; O2SAT 95
[2020-01-02] MEDS: FLUoxetine 20 MG Capsule 40 MG PO (09:10)
[2020-01-02 09:12] VITALS: BP 129/90; PULSE 85; RESP 16; TEMP 36.6; O2SAT 97
[2020-01-02] MEDS: Losartan Potassium 50 MG Tablet PO (09:13)
[2020-01-02] MEDS: Thiamine Hydrochloride 100 MG Tablet PO (09:14)
[2020-01-02] MEDS: Folic Acid 1 MG Tablet PO (09:14)
--- NOTE | 2020-01-02 11:56 | ADDICTION ---
This senior technical writer met with patient in his room to conduct ASAM, MSE and AUDIT assessments and to discuss discharge plans. Patient was alert and oriented x4 and participated appropriately. He is motivated to engage in residential treatment. His admit into [facility] is pending approval. This senior technical writer will continue to coordinate with [facility] staff to meet this patient's needs and will provide further information to [facility] staff when available.
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
--- NOTE | 2020-01-02 13:47 | CASEMGMT ---
Social Work Note Pt is homeless. SW met with pt. SW introduced self and role at [facility]. Pt is alert and orientated x3. Pt confirms that he would like to get into [facility] at [facility]. Pt also confirms that he is homeless. SW provided pt with homeless resources including [place] [id number], [facility] [employer], [facility] and Homeless shelters. SW also informed pt that [facility] has housing assistance and they may be able to assist pt with housing. Pt states understanding. Denisha Gonzalez DATA SCIENCE AND IOT MANAGER, TECHNOLOGY ANALYST
[2020-01-02 15:21] VITALS: BP 132/84; PULSE 83; RESP 18; TEMP 36.7; O2SAT 98
[2020-01-02] MEDS: Enoxaparin 40 MG/0.4 ML Syringe SC (15:54)
[2020-01-02 20:14] VITALS: BP 130/91; PULSE 74; RESP 18; TEMP 36.4; O2SAT 97
[2020-01-03 00:37] VITALS: BP 138/79; PULSE 60; RESP 18; TEMP 36.5; O2SAT 96
[2020-01-03] MEDS: Phenobarbital 32.4 MG Tablet PO ×6 (00:37→20:13)
[2020-01-03 04:42] VITALS: BP 126/95; PULSE 68; RESP 18; TEMP 36.9; O2SAT 96
[2020-01-03 07:54] LABS: Anion Gap 3 (5-15); BUN 22 mg/dL (7-18); BUN/Creat Ratio 21.8 RATIO (10-20); Calcium,Total 9.2 mg/dL (8.5-10.1); Chloride 107 mmol/L (98-107); Creatinine, Serum 1.01 mg/dL (0.70-1.30); EST Glomerular Filtration Rate 83 mL/min (>60); Est Glom Filt Rate - Afr Amer 100 mL/min (>60); Estimated Creatinine Clearance 83.71 ml/min; Glucose 103 mg/dL (74-106); Potassium 4.3 mmol/L (3.5-5.1); Sodium Level 138 mmol/L (136-145)
[2020-01-03 08:33] VITALS: BP 130/90; PULSE 73; RESP 18; TEMP 36.6; O2SAT 99
[2020-01-03] MEDS: Folic Acid 1 MG Tablet PO (08:40)
[2020-01-03] MEDS: Enoxaparin 40 MG/0.4 ML Syringe SC (08:41)
[2020-01-03] MEDS: Losartan Potassium 50 MG Tablet PO (08:41)
[2020-01-03] MEDS: FLUoxetine 20 MG Capsule 40 MG PO (08:41)
[2020-01-03] MEDS: Thiamine Hydrochloride 100 MG Tablet PO (08:41)
[2020-01-03 12:54] VITALS: BP 122/90; PULSE 80; RESP 18; TEMP 36.7; O2SAT 99
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
[2020-01-03 16:04] VITALS: BP 143/99; PULSE 72; RESP 18; TEMP 37.1; O2SAT 99
[2020-01-03 20:04] VITALS: BP 126/71; PULSE 77; RESP 18; TEMP 36.7; O2SAT 96
[2020-01-04] MEDS: Phenobarbital 32.4 MG Tablet PO ×5 (00:29→21:47)
[2020-01-04 04:36] VITALS: BP 118/76; PULSE 71; RESP 18; TEMP 36.4; O2SAT 96
[2020-01-04 06:22] LABS: Absolute Neutrophil Count 3.4 X10^3/uL (2.0-7.7); Basophil# 0.04 X10^3/uL; Basophil% 0.6 % (0-1); Eosinophil# 0.28 X10^3/uL; Eosinophils% 4.2 % (0-5); Hematocrit 42.1 % (40-54); Hemoglobin 13.7 g/dL (13.0-16.5); Lymphocyte % 34.9 % (19-41); Mean Corp Hgb Conc 32.5 g/dL (32-36); Mean Corpuscular Hgb 33.4 pg (27.0-32.0); Mean Corpuscular Volume 102.7 fL (80-94); Mean Platelet Vol. 10.3 fl (6.2-12.0); Monocyte# 0.52 X10^3/uL; Monocyte% 7.9 % (0-10); NRBC Flagged by Analyzer 0 % (0-5); Neutrophil # 3.41 X10^3/uL (2.7-7.7); Neutrophil % 51.8 % (47-70); Platelet Count 257 K/mm3 (150-450); RBC Distribution Width CV 11.7 % (11.6-14.6); RBC Distribution Width SD 44.5 fl (35.1-43.9); White Blood Count 6.6 K/mm3 (4.4-11.0)
[2020-01-04 06:48] LABS: Anion Gap 4 (5-15); BUN 23 mg/dL (7-18); BUN/Creat Ratio 22.8 RATIO (10-20); Calcium,Total 8.9 mg/dL (8.5-10.1); Chloride 108 mmol/L (98-107); Creatinine, Serum 1.01 mg/dL (0.70-1.30); EST Glomerular Filtration Rate 83 mL/min (>60); Est Glom Filt Rate - Afr Amer 100 mL/min (>60); Estimated Creatinine Clearance 83.71 ml/min; Glucose 92 mg/dL (74-106); Potassium 4.5 mmol/L (3.5-5.1); Sodium Level 139 mmol/L (136-145)
[2020-01-04] MEDS: Thiamine Hydrochloride 100 MG Tablet PO (09:14)
[2020-01-04] MEDS: Losartan Potassium 50 MG Tablet PO (09:14)
[2020-01-04] MEDS: FLUoxetine 20 MG Capsule 40 MG PO (09:14)
[2020-01-04] MEDS: Folic Acid 1 MG Tablet PO (09:14)
[2020-01-04 10:00] VITALS: BP 119/65; PULSE 78; RESP 18; TEMP 36.6; O2SAT 98
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
[2020-01-04 14:00] VITALS: BP 135/88; PULSE 84; RESP 18; TEMP 36.9; O2SAT 99
[2020-01-04 20:21] VITALS: BP 119/73; PULSE 76; RESP 16; TEMP 36.4; O2SAT 97
[2020-01-05] MEDS: Phenobarbital 32.4 MG Tablet PO ×4 (03:55→21:47)
[2020-01-05 04:00] VITALS: BP 110/55; PULSE 67; RESP 16; TEMP 36.9; O2SAT 97
[2020-01-05] MEDS: Enoxaparin 40 MG/0.4 ML Syringe SC (09:00)
[2020-01-05] MEDS: Thiamine Hydrochloride 100 MG Tablet PO (09:01)
[2020-01-05] MEDS: Folic Acid 1 MG Tablet PO (09:01)
[2020-01-05] MEDS: Losartan Potassium 50 MG Tablet PO (09:01)
[2020-01-05] MEDS: FLUoxetine 20 MG Capsule 40 MG PO (09:10)
--- NOTE | 2020-01-05 09:40 | ADDICTION ---
This machine sign writer met with patient in his room to continue to discuss discharge planning. This machine sign writer is waiting to hear from [facility]'s residential admissions team re: admit. Patient will possibly be d/c today, if he is d/c prior to admit authorization, he has been encouraged to come directly to the [facility] main office to continue to process admit into [facility]. He is amiable.
[2020-01-05 10:00] VITALS: BP 112/85; PULSE 85; RESP 18; TEMP 36.3; O2SAT 97
--- NOTE | 2020-01-05 10:40 | CASEMGMT ---
Social Work Note SW placed a call to Whitney at [facility] and left message informing her that pt is medically ready for discharged, asked about admission to [facility] if she has heard anything. SONDRA waiting for call back. Denisha Gonzalze BLASTING ENTRY SPECIALIST, CABLE TENDER
--- NOTE | 2020-01-05 11:11 | PCM.DC ---
- Discharge Diagnoses Current Active Problems: Current Active and Chronic Problems Alcohol abuse (Chronic) You will use the following diet at home:: No restrictions Discharge Activity: Return to Normal Activity Call your doctor if you observe: Shortness of breath, Dizziness, Fainting spells, Chest pain Allergies/Adverse Reactions: Allergies No Known Allergies Allergy (Verified 01/01/20 15:54) Medications to take at Discharge Fluoxetine HCl 40 mg PO DAILY 05/14/19 Irbesartan [Avapro] 150 mg PO DAILY 05/14/19 Ibuprofen 400 mg PO TID PRN #15 tab 12/21/19 Primary Care Physician: Johanne Eden MD [Primary Care Provider] - Please follow up with your Primary Care Physician in: 1 Week Test Results: Test results from this visit will be discussed in further detail at your follow-up appointment, if applicable. Please Follow Up With: EIGHTY,ONE When: Go directly to [facility] at discharge Proposed Discharge Date: 01/05/20
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
--- NOTE | 2020-01-05 13:16 | CASEMGMT ---
Addendum entered by Denisha Gonzalez 01/05/20 14:20: SONDRA received message from Sarina stating [facility] will be at [facility] tomorrow at 9:30am to transport pt. It will be a white transit van. SW in to speak with pt, SW updated pt on above information. Pt states understanding, agreeable to plan. Plan: Direct Admit to [facility] tomorrow with [facility] transporting pt at 9:30am Addendum entered by Denisha Gonzalez 01/05/20 13:45: SONDRA received message from Sarina with [facility] stating she is working on getting pt transportation arranged for tomorrow, will call this worker back. Original Note: Social Work Note SONDRA received call from Whitney at [facility] stating pt is able to direct admit to [facility] (residential) tomorrow. Sarina asked that pt remain at [facility] today to direct admit to [facility] tomorrow. SONDRA updated PA, pt to discharge to [facility] tomorrow. SONDRA placed a call to Whitney and left message that pt is able to remain at [facility] today with direct admit to [facility] tomorrow. SONDRA asked Sarina about transportation to [facility]. SW waiting for call back. Denisha Gonzalez GRINDER TENDER, [employer]
--- NOTE | 2020-01-05 15:14 | CHAPLAIN ---
Type of Pastoral Visit _x__ Initial Visit ___ Follow-up Visit ___ On-call Visit ___ General Patient Visit ___ Spiritual Assessment ___ Family Conference ___ Bereavement ___ Rapid Response ___ Code Blue ___ Other (describe below) Pastoral Care Referral From _x__ Patient ___ Family ___ Nurse ___ Physician ___ Test Baker ___ Datawarehouse Developer ___ Other (describe below) Sacrament/Intervention _x__ Active listening ___ Anointing ___ Christianity ___ Bereavement ___ Communion ___ Amanda exploration ___ _x__ Life review _x__ Prayer ___ Reconciliation ___ Sacrament of Sick _x__ Supportive presence ___ Wedding ___ Other (describe below) Pastoral Comments patient requested support and asks for help assisting with finding a place to live; at time of visit pt was unclear if [facility] would accept him for residential placement; this biomedical engineering internship discussed situation with and found out that [facility] had notified hospital that a place was available for pt; returned to pt room and let him know that he had a spot with [facility]
[2020-01-05 16:00] VITALS: BP 121/81; PULSE 76; RESP 18; TEMP 36.7; O2SAT 96
[2020-01-05 21:42] VITALS: BP 132/85; PULSE 76; RESP 18; TEMP 36.4; O2SAT 98
[2020-01-05 21:44] VITALS: BP 132/85; PULSE 76; RESP 18; TEMP 36.4; O2SAT 98
[2020-01-05 21:55] VITALS: PULSE 76; RESP 18; O2SAT 98
[2020-01-06 06:05] VITALS: BP 123/77; PULSE 65; RESP 16; TEMP 36.6; O2SAT 95
[2020-01-06 06:07] VITALS: BP 123/77; PULSE 65; RESP 16; TEMP 36.6; O2SAT 95
[2020-01-06] MEDS: Thiamine Hydrochloride 100 MG Tablet PO (08:42)
[2020-01-06] MEDS: Losartan Potassium 50 MG Tablet PO (08:42)
[2020-01-06] MEDS: FLUoxetine 20 MG Capsule 40 MG PO (08:42)
[2020-01-06] MEDS: Folic Acid 1 MG Tablet PO (08:42)
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
== END 2020-01-06 09:30 | disposition home or self-care (01) | DRG 897 ==
LOC: ED 16:52 → MS3 17:55
PROVIDERS: Admitting Provider Internal Medicine; Emergency Provider Emergency Medicine; PCP Internal Medicine; Visit Provider Internal Medicine
DX: F10.230 Alcohol dependence with withdrawal, uncomplicated (principal); F12.90 Cannabis use, unspecified, uncomplicated; G31.84 Mild cognitive impairment of uncertain or unknown etiology; G83.9 Paralytic syndrome, unspecified; F32.9 Major depressive disorder, single episode, unspecified; I10 Essential (primary) hypertension; J44.9 Chronic obstructive pulmonary disease, unspecified; Z59.0 Homelessness; Z79.899 Other long term (current) drug therapy; Z87.820 Personal history of traumatic brain injury; F17.210 Nicotine dependence, cigarettes, uncomplicated
CPT/HCPCS: 36415; 80048; 80053; 80307; 80320; 85025; 99284; 99406; A4216; G0480

== ENCOUNTER 2021-09-19 09:31 | Outpatient (RCR) | payer MEDICARE, MEDICAID, SELFPAY | END 2021-09-20 15:42 | disposition home or self-care (01) | LOC: WC 09:31 | PROVIDERS: PCP Internal Medicine; Visit Provider Nurse Practitioner Family | DX: Z09 Encounter for follow-up examination after completed treatment for conditions other than malignant neoplasm (principal) ==